=== PATIENT | male | born 1940 | race Caucasian/White ===

== ENCOUNTER 2024-12-22 11:18 | Inpatient (IN) | payer MEDICARE, SELFPAY ==
[2024-12-22] VITALS (13 sets, daily range): BP systolic 91–113; BP diastolic 52–75; BMI 28.2
--- NOTE | 2024-12-22 08:02 | W.PN.CARDCBS ---
Today's Communication / Plan
-
LHC/RHC today
Impression / Plan
-
This is a summary, see scanned H&P
Primary care physician: Jone Lopez MD
Primary driver manager: Don Carter MD
84 year old male with the PMH of HTN, HLD and CAD s/p [place] PCI to proximal LAD and mid RCA 2001 and RCA in stent restenosis dilated with cutting balloon and brachytherapy 2002 in [facility] who presented to the Emergency room for evaluation of
worsening SOB x2� weeks� with intermittent chest tightness. Upon arrival he was 98% on RA with BP 104/61. EKG showed AFlutter (new) with anterolateral STTW changes. CTA chest was negative for PE. BNP 3003 Trp 576, 745, 847, 1037, 1118 with CPK�s
275, 295, 417, 423, 429, MB peaked at 46.1. ASA 324mg was given in the ED and IV Heparin gtt was started. Repeat EKG showed NSR with lateral STTWA. Echo with EF 35-40%, anterolateral and mid inferolateral WMA, moderate-severe MR. He is being
transferred today for [facility].
Impression:
NSTEMI
CAD PCI LAD, RCA 2001 in [facility], 2002 RCA ISR s/p cutting balloon, IC brachytherapy
Atrial flutter, new dx, [id number] =4
Acute on chronic HFrEF 35-40%
HTN
Pre DM diet controlled
PVC's, PAC's
Moderate-severe MR by Echo
Dyslipidemia
chewing tobacco dependence
Plan:
transferred for LHC/RHC, admit IVU post procedure
continue to trend CPK/MB/troponin was still trending
CXR clear despite BNP 3003, He was given one dose of IV lasix, possible RHC to assess for further diuresis
Echo with new WMA and depressed EF with mod-severe MR and Mod AI
Paroxysmal Aflutter - converted to SR in ER, new diagnosis, will resume heparin drip after cath
If PCI may require DAPT with OAC, CHADsVASC score is 4 so should be anticoagulated
Check CVE, continue atorvastatin 40mg
HTN - continue amlodipine and lisinopril
Moderate-severe MR and Mod AI, may require FREDRICK to better evaluate, compared to Echo 06/08 only trace MR, mild AI
continue to monitor closely on tele
Recently moved to [place] so will most likely f/u with ATC
12/21/24 ECHO
1. Mildly to moderately decreased left ventricular systolic function.
2. Left ventricular ejection fraction, by visual estimation, is 35 to 40%.
3. Basal and mid anterolateral wall, basal and mid inferior wall, and basal and mid inferolateral wall are abnormal.
4. Moderately increased left ventricular internal cavity size by (6.36 cm/ 3.50 cm/m2).
5. Indeterminate LV diastolic function.
6. Normal right ventricular size and systolic function.
7. Moderately dilated left atrium by volume index 42.0 mL/m2.
8. Normal right atrium by area 11.2 cm2.
9. Aortic valve is tricuspid and sclerotic. Aortic valve sclerosis of the base of multiple aortic cusps; but no aortic stenosis. No evidence of aortic valve stenosis. Mild to moderate aortic regurgitation.
10. Moderate to severe mitral valve regurgitation is seen. Mitral regurgitation jet is eccentrically directed.
11. Mild to moderate tricuspid regurgitation.
12. Right atrial pressure of (8 mmHg), the estimated right ventricular systolic pressure is mildly elevated at (48.1 mmHg).
13. Inferior vena cava normal in size (>2.1 cm) + greater than 50% variably consistent with elevated right atrial pressures (8 mmHg).
14. The ascending aorta is dilated. Asc Aorta measures (3.66 cm/ BSA indexed 2.0 cm/m2).
15. Compared to a prior TTE study from 06/07/2024 Left ventricle function has decreased, there are more extensive wall motion abnormalities noted (prior study noted only basal inferior akinesis) and mitral regurgitation has increased significantly.
Left ventricle size has also increased and is now dilated.
05/2024 ECHO - LVEF 50-55%, inferobasal AK, global HK, mild MAC, Trace MR, mild TR/AI, borderline dil AA 3.8cm
Progress Note - Legal Officer
Subjective
Date of Service: December 22, 2024
denies cp, sob
Objective
Labs:
Laboratory Last Values
WBC 7.8 10^3/uL (4.5-11.0) 12/21/24 09:15
RBC 4.35 10^6/uL (4.20-5.40) 12/21/24 09:15
Hgb 13.0 gm/dL (13.5-16.5) L 12/21/24 09:15
Hct 40.2 % (40.0-48.0) 12/21/24 09:15
MCV 92 fl (82-98) 12/21/24 09:15
RDW 14.1 % (11.0-15.0) 12/21/24 09:15
Plt Count 290 10^3/uL (150-400) 12/21/24 09:15
Neut % (Auto) 74 % (40-78) 12/21/24 09:15
Lymph % (Auto) 19 % (21-49) L 12/21/24 09:15
[place] % (Auto) 5 % (0-10) 12/21/24 09:15
Eos % (Auto) 1 % (0-4) 12/21/24 09:15
Baso % (Auto) 1 % (0-1) 12/21/24 09:15
Neut # (Auto) 5.7 10^3/uL (2.2-8.0) 12/21/24 09:15
Lymph # (Auto) 1.5 10^3/uL (1.0-4.0) 12/21/24 09:15
[place] # (Auto) 0.4 10^3/uL (0.0-1.0) 12/21/24 09:15
Eos # (Auto) 0.1 10^3/uL (0.0-0.4) 12/21/24 09:15
Baso # (Auto) 0.1 10^3/uL (0.0-0.1) 12/21/24 09:15
PT 13.4 SECONDS (11.5-14.4) 12/21/24 09:15
INR 1.01 INR 12/21/24 09:15
APTT 27 SECONDS (23-37) 12/21/24 09:15
Sodium 144 mmol/L (136-145) 12/21/24 09:15
Potassium 4.3 mmol/L (3.5-5.1) 12/21/24 09:15
Chloride 109 mmol/L (98-107) H 12/21/24 09:15
Carbon Dioxide 24.6 mmol/L (22.0-29.0) 12/21/24 09:15
Anion Gap 10 (7-16) 12/21/24 09:15
BUN 26 mg/dL (8-23) H 12/21/24 09:15
Creatinine 1.20 mg/dL (0.70-1.20) 12/21/24 09:15
GFR Calculation 60 (Over 90) L 12/21/24 09:15
BUN/Creatinine Ratio 21.6 (7.0-25.0) 12/21/24 09:15
Random Glucose 117 mg/dL (50-200) 12/21/24 09:15
Calcium 9.7 mg/dL (8.8-10.2) 12/21/24 09:15
Total Bilirubin 0.4 mg/dL (0.1-1.2) 12/21/24 09:15
AST 49 U/L (0-40) H 12/21/24 09:15
ALT 38 U/L (0-41) 12/21/24 09:15
Alkaline Phosphatase 85 U/L (35-160) 12/21/24 09:15
Total Creatine Kinase 295 U/L (20-200) H 12/21/24 12:26
CK-MB (CK-2) 29.8 ng/mL (0.0-5.0) H 12/21/24 12:26
CK-MB (CK-2) Rel Index 10.1 ng/100IU (0-2.8) H 12/21/24 12:26
Troponin T 5th Gen ng/L 745 ng/L (0-22) H* 12/21/24 12:26
NT-Pro-B Natriuret Pep 3003 pg/mL (0-300) H 12/21/24 09:15
Total Protein 6.3 g/dL (6.5-8.3) L 12/21/24 09:15
Albumin 4.2 g/dL (3.5-5.2) 12/21/24 09:15
Globulin 2.1 g/dL (2.3-3.5) L 12/21/24 09:15
Albumin/Globulin Ratio 2.0 (1.1-1.7) H 12/21/24 09:15
Physical Exam
Physical Exam
NAD< AOX3
S1, S2, RRR, II/ LEXIS at [facility]
CTAB, non labored
SNTND Bsx4
No LE edema
[2024-12-22 09:52] LABS: Total CK 425 U/L (55-170)
[2024-12-22 10:18] LABS: CKMB 26.6 ng/ml (0.0-3.4)
--- NOTE | 2024-12-22 11:11 | ITS.CL.CATH ---
Nurse Discharge - Catheterization
Cardiac Catheterization
Procedure Report:
RIGHT AND LEFT HEART CATHETERIZATION
Date of Procedure: December 22, 2024
Primary Care Physician: Dr. Rio Bridges
Primary Vba Programmer: Dr. Stas Coyne
Procedures performed:
1: Coronary angiography
2: Left ventriculography
3: Right heart catheterization
INDICATION: The patient is an 84-year-old man with a past medical history of coronary artery stenting to the LAD and right coronary artery many years ago who presents with a non-STEMI and 2 weeks of symptoms. Echo shows new LV systolic dysfunction
with at least moderate mitral regurgitation. He is feeling better and asymptomatic.
ACCESS: The patient was prepped and draped in usual sterile fashion. A 6 Frisian sheath was placed in the right radial artery using the Seldinger over the wire technique. A 6 Frisian sheath was then placed in the right common femoral vein using the
same technique.
HEMODYNAMIC FINDINGS (mmHg):
RA(a,v,m): 16, 14, 13
RV(s/d,EDP): 42/12, 15
PA(s/d/m): 42/21, 27
PCWP(a,v,m): 22, 24, 22
LV(s/d,EDP): 90/14, 24
Ao(s/d,m): 90/50, 66
Oxygen Saturations (mg/dl):
PA: 59% on room air
LV: 89% on room air
Cardiac Output/Index (l/min / l/min/m2):
Estimated Frank Method: 4.1/2.3
VALVE HEMODYNAMICS:
No significant aortic or mitral valve stenosis.
ANGIOGRAPHIC FINDINGS:
Single-plane Left Ventriculography in SMITH Projection: Not done.
Coronary Angiography:
Dominance: Right
Left Main: Distal 80 to 90% stenosis.
Left Anterior Descending: The LAD is a medium caliber vessel that gives rise to 1 major high diagonal branch. The previously placed mid LAD stent is widely patent with no significant in-stent restenosis. The distal LAD is widely patent with normal
flow and appears to be a good surgical target. The major diagonal branch also has mild nonobstructive proximal and mid disease with normal distal flow.
Left Circumflex: There is complex distal left main disease which extends into the circumflex ostium with at least 90% stenosis. The circumflex gives rise to 1 major obtuse marginal branch which has TALHA II flow. This vessel appears to be distally
patent and a reasonable surgical target.
Right Coronary: The right coronary artery is a medium to large caliber vessel that has previously overlapping stents in the midportion. There is a hazing filling defect with at least a 90% stenosis in the mid RCA at the proximal stent edge followed
by severe in-stent restenosis in the midportion of the stent with a 70 to 80% stenosis. The distal RCA is widely patent. The posterior descending artery is relatively small.
Fluoroscopy Time (min): 5.2
Radiation Dose (mGy): 335
DAP (Gy.cm2): 29
Closure device: None. A TR band was applied for hemostasis at the right wrist. The femoral vein groin sheath will be pulled with manual pressure for hemostasis.
Complications: None.
ASSESSMENT:
1: Complex three-vessel coronary artery disease including left main disease with a resting flow abnormality into the circumflex as described above.
2: Mildly elevated pulmonary pressures.
3: Low cardiac output and index with reasonably compensated filling pressures.
CONCLUSIONS and RECOMMENDATIONS:
1: CT surgical evaluation for CABG and possible mitral valve intervention.
Amanda Rincon M.D.
Copy to: Dr. Rio Bridges in [facility]
--- NOTE | 2024-12-22 11:30 | PTCARENOTE ---
Received patient from the cardiac cath lab radiology technologist in his bed, with HOB elevated 15 degrees. Right radial band intact, no signs of bleeding or hematoma noted. Right groin dressing is dry and intact. SR on telemetry, monitoring VS, call yo in reach. The patient's
and DIL at the bedside.
--- NOTE | 2024-12-22 11:57 | CONSULT.CT ---
Consultation
-
Date/Time Consultation Requested: 12/22 113
Date/Time Consultation Performed: 12/22 1200
Requesting Provider: Vin BORGES
Performing Provider: Paige Dow MD
Reason for Consultation: CABG eval
Patient History
Physicians
Family Physician: Jone Lopez MD
Outpatient Assembly Mechanic: Don Carter MD
Inpatient Assembly Mechanic: Vin BORGES
History of Present Illness
84 y/o male with pmhx listed below initally presented to [facility] with progessive shortness of breathe for 2 weeks and chest pressure that was initally with actvity but since friday it happened with rest. Upon arrival he was saturating in the high 90s on
room air. His EKG at that time showed atrial flutter w/ EKG changes, which is new to him. Patient was also found to have an elevated BNP and troponins. TTE showed an EF of 35-40% and mod TR and severe MR. Patient was transferred to today for a
LHC which revealed MVD and CT surgery was consulted for surgical evaluation.
12/22/24 C
Coronary Angiography:
Dominance: Right
Left Main: Distal 80 to 90% stenosis.
Left Anterior Descending: The LAD is a medium caliber vessel that gives rise to 1 major high diagonal branch. The previously placed mid LAD stent is widely patent with no significant in-stent restenosis. The distal LAD is widely patent with normal
flow and appears to be a good surgical target. The major diagonal branch also has mild nonobstructive proximal and mid disease with normal distal flow.
Left Circumflex: There is complex distal left main disease which extends into the circumflex ostium with at least 90% stenosis. The circumflex gives rise to 1 major obtuse marginal branch which has TALHA II flow. This vessel appears to be distally
patent and a reasonable surgical target.
Right Coronary: The right coronary artery is a medium to large caliber vessel that has previously overlapping stents in the midportion. There is a hazing filling defect with at least a 90% stenosis in the mid RCA at the proximal stent edge followed
by severe in-stent restenosis in the midportion of the stent with a 70 to 80% stenosis. The distal RCA is widely patent. The posterior descending artery is relatively small.
12/22 RHC
HEMODYNAMIC FINDINGS (mmHg):
RA(a,v,m): 16, 14, 13
RV(s/d,EDP): 42/12, 15
PA(s/d/m): 42/21, 27
PCWP(a,v,m): 22, 24, 22
LV(s/d,EDP): 90/14, 24
Ao(s/d,m): 90/50, 66
Oxygen Saturations (mg/dl):
PA: 59% on room air
LV: 89% on room air
Cardiac Output/Index (l/min / l/min/m2):
Estimated Frank Method: 4.1/2.3
12/21/24 ECHO
1. Mildly to moderately decreased left ventricular systolic function.
2. Left ventricular ejection fraction, by visual estimation, is 35 to 40%.
3. Basal and mid anterolateral wall, basal and mid inferior wall, and basal and mid inferolateral wall are abnormal.
4. Moderately increased left ventricular internal cavity size by (6.36 cm/ 3.50 cm/m2).
5. Indeterminate LV diastolic function.
6. Normal right ventricular size and systolic function.
7. Moderately dilated left atrium by volume index 42.0 mL/m2.
8. Normal right atrium by area 11.2 cm2.
9. Aortic valve is tricuspid and sclerotic. Aortic valve sclerosis of the base of multiple aortic cusps; but no aortic stenosis. No evidence of aortic valve stenosis. Mild to moderate aortic regurgitation.
10. Moderate to severe mitral valve regurgitation is seen. Mitral regurgitation jet is eccentrically directed.
11. Mild to moderate tricuspid regurgitation.
12. Right atrial pressure of (8 mmHg), the estimated right ventricular systolic pressure is mildly elevated at (48.1 mmHg).
13. Inferior vena cava normal in size (>2.1 cm) + greater than 50% variably consistent with elevated right atrial pressures (8 mmHg).
14. The ascending aorta is dilated. Asc Aorta measures (3.66 cm/ BSA indexed 2.0 cm/m2).
15. Compared to a prior TTE study from 06/07/2024 Left ventricle function has decreased, there are more extensive wall motion abnormalities noted (prior study noted only basal inferior akinesis) and mitral regurgitation has increased significantly.
Left ventricle size has also increased and is now dilated.
Past Medical History
Past Medical History: Other
NSTEMI
CAD PCI LAD, RCA 2001 in [facility], 2002 RCA ISR s/p cutting balloon, IC brachytherapy
Atrial flutter, new dx, [id number] =4
Acute on chronic HFrEF 35-40%
HTN
Pre DM diet controlled
PVC's, PAC's
Moderate-severe MR by Echo
Dyslipidemia
chewing tobacco dependence
Past Surgical History
Past Surgical History: PCI/Stent
Dental History
last dental visit 1 year ago
Family History
Mother: N/A
Father: N/A
Family Medical History: CAD
Social History
Alcohol: Occasional
Drug: None
Tobacco: Other (does chewing tobacco/ quit smoking 45 years ago)
Living: With Spouse
Employment: Retired
Allergies
Allergy/AdvReac Type Severity Reaction Status Date / Time
No Known Allergies Allergy Unverified 12/22/24 09:21
Home Medications
�Medication �Instructions �Recorded �Confirmed �Type
amlodipine 5 mg tablet 5 mg PO DAILY 12/22/24 12/22/24 History
aspirin 81 mg capsule 81 mg PO DAILY 12/22/24 12/22/24 History
atorvastatin 40 mg tablet 40 mg PO QPM 12/22/24 12/22/24 History
lisinopril 20 mg tablet 20 mg PO DAILY 12/22/24 12/22/24 History
melatonin 10 mg tablet 10 mg PO HS 12/22/24 12/22/24 History
Review of Systems
-
History Source: Patient
General: Reports No Symptoms
Respiratory: Reports SOB and CAT
Cardiac: Reports Chest Pain
Abdomen/GI: Reports No Symptoms
: Reports No Symptoms
Musculoskeletal: Reports No Symptoms
Skin: Reports No Symptoms
Neurological: Reports No Symptoms
Vascular: Reports No Symptoms
Physical Exam
Vital Signs
Temp 97.7 F 12/22/24 09:48
Temp route: Temporal 12/22/24 09:48
Pulse 66 12/22/24 09:48
Resp Rate 17 12/22/24 09:48
Blood pressure 99/65 12/22/24 09:48
Blood pressure extremity used: Left upper arm 12/22/24 09:48
Position: Lying 12/22/24 09:48
SaO2 95 12/22/24 09:48
Oxygen Mode of Delivery Room air 12/22/24 09:48
Can the patient verbally communicate their pain? Yes 12/22/24 09:48
Labs
Laboratory Last Values
WBC 7.8 10^3/uL (4.5-11.0) 12/21/24 09:15
RBC 4.35 10^6/uL (4.20-5.40) 12/21/24 09:15
Hgb 13.0 gm/dL (13.5-16.5) L 12/21/24 09:15
Hct 40.2 % (40.0-48.0) 12/21/24 09:15
MCV 92 fl (82-98) 12/21/24 09:15
RDW 14.1 % (11.0-15.0) 12/21/24 09:15
Plt Count 290 10^3/uL (150-400) 12/21/24 09:15
Neut % (Auto) 74 % (40-78) 12/21/24 09:15
Lymph % (Auto) 19 % (21-49) L 12/21/24 09:15
[place] % (Auto) 5 % (0-10) 12/21/24 09:15
Eos % (Auto) 1 % (0-4) 12/21/24 09:15
Baso % (Auto) 1 % (0-1) 12/21/24 09:15
Neut # (Auto) 5.7 10^3/uL (2.2-8.0) 12/21/24 09:15
Lymph # (Auto) 1.5 10^3/uL (1.0-4.0) 12/21/24 09:15
[place] # (Auto) 0.4 10^3/uL (0.0-1.0) 12/21/24 09:15
Eos # (Auto) 0.1 10^3/uL (0.0-0.4) 12/21/24 09:15
Baso # (Auto) 0.1 10^3/uL (0.0-0.1) 12/21/24 09:15
PT 13.4 SECONDS (11.5-14.4) 12/21/24 09:15
INR 1.01 INR 12/21/24 09:15
APTT 27 SECONDS (23-37) 12/21/24 09:15
Sodium 144 mmol/L (136-145) 12/21/24 09:15
Potassium 4.3 mmol/L (3.5-5.1) 12/21/24 09:15
Chloride 109 mmol/L (98-107) H 12/21/24 09:15
Carbon Dioxide 24.6 mmol/L (22.0-29.0) 12/21/24 09:15
Anion Gap 10 (7-16) 12/21/24 09:15
BUN 26 mg/dL (8-23) H 12/21/24 09:15
Creatinine 1.20 mg/dL (0.70-1.20) 12/21/24 09:15
GFR Calculation 60 (Over 90) L 12/21/24 09:15
BUN/Creatinine Ratio 21.6 (7.0-25.0) 12/21/24 09:15
Random Glucose 117 mg/dL (50-200) 12/21/24 09:15
Calcium 9.7 mg/dL (8.8-10.2) 12/21/24 09:15
Total Bilirubin 0.4 mg/dL (0.1-1.2) 12/21/24 09:15
AST 49 U/L (0-40) H 12/21/24 09:15
ALT 38 U/L (0-41) 12/21/24 09:15
Alkaline Phosphatase 85 U/L (35-160) 12/21/24 09:15
Total Creatine Kinase 295 U/L (20-200) H 12/21/24 12:26
CK-MB (CK-2) 29.8 ng/mL (0.0-5.0) H 12/21/24 12:26
CK-MB (CK-2) Rel Index 10.1 ng/100IU (0-2.8) H 12/21/24 12:26
Troponin T 5th Gen ng/L 745 ng/L (0-22) H* 12/21/24 12:26
NT-Pro-B Natriuret Pep 3003 pg/mL (0-300) H 12/21/24 09:15
Total Protein 6.3 g/dL (6.5-8.3) L 12/21/24 09:15
Albumin 4.2 g/dL (3.5-5.2) 12/21/24 09:15
Globulin 2.1 g/dL (2.3-3.5) L 12/21/24 09:15
Albumin/Globulin Ratio 2.0 (1.1-1.7) H 12/21/24 09:15
Diagnostic Studies
12/21/24 ECHO
1. Mildly to moderately decreased left ventricular systolic function.
2. Left ventricular ejection fraction, by visual estimation, is 35 to 40%.
3. Basal and mid anterolateral wall, basal and mid inferior wall, and basal and mid inferolateral wall are abnormal.
4. Moderately increased left ventricular internal cavity size by (6.36 cm/ 3.50 cm/m2).
5. Indeterminate LV diastolic function.
6. Normal right ventricular size and systolic function.
7. Moderately dilated left atrium by volume index 42.0 mL/m2.
8. Normal right atrium by area 11.2 cm2.
9. Aortic valve is tricuspid and sclerotic. Aortic valve sclerosis of the base of multiple aortic cusps; but no aortic stenosis. No evidence of aortic valve stenosis. Mild to moderate aortic regurgitation.
10. Moderate to severe mitral valve regurgitation is seen. Mitral regurgitation jet is eccentrically directed.
11. Mild to moderate tricuspid regurgitation.
12. Right atrial pressure of (8 mmHg), the estimated right ventricular systolic pressure is mildly elevated at (48.1 mmHg).
13. Inferior vena cava normal in size (>2.1 cm) + greater than 50% variably consistent with elevated right atrial pressures (8 mmHg).
14. The ascending aorta is dilated. Asc Aorta measures (3.66 cm/ BSA indexed 2.0 cm/m2).
15. Compared to a prior TTE study from 06/07/2024 Left ventricle function has decreased, there are more extensive wall motion abnormalities noted (prior study noted only basal inferior akinesis) and mitral regurgitation has increased significantly.
Left ventricle size has also increased and is now dilated.
05/2024 ECHO - LVEF 50-55%, inferobasal AK, global HK, mild MAC, Trace MR, mild TR/AI, borderline dil AA 3.8cm
Exam
General: Well Developed and Well Nourished
HEENT: Normocephalic
Respiratory: Clear
Cardiac: S1/S2 and Regular Rhythm
GI: Soft and Other (obese)
Rectal: Deferred by Provider
Skin: Warm and Dry
Neuro: AO x 3
Extremities: Pulses (+1)
Lymph: No Lymphadenopathy
Psych: Calm
Assessment / Plan
-
84-year-old male with past medical history listed above presented to [facility] with complaints of shortness of breath for 2 weeks. With workup patient was found to have valvular disease and CAD. CT surgery was consulted for surgical
workup.
#CAD
# Mod- Severe MR
# Mild- Mod TR
-Patient's case will be discussed with attending physician. Further details regarding surgical timing intervention will be determined after attending physicians full evaluation
-Routine preoperative cardiothoracic surgery orders will be initiated.
-STS risk stratification score will be calculated after preoperative testing is complete
- may start DTX or milrinone to augment diureses as tolerated
- trend creatinine/BMP
- Will repeat echocardiogram on friday
[2024-12-22 13:05] LABS: Total CK 339 U/L (55-170)
[2024-12-22 13:24] LABS: CKMB 20.4 ng/ml (0.0-3.4)
--- NOTE | 2024-12-22 13:56 | CM ---
CM following for DC planning needs.
Met w/ patient + mult. family members at bedside (spouse, Blanca, DIL, Radha and son).
Pt. resides w/ spouse, son and DIL in a private, [facility]. Functionally, patient is quite indep. at baseline w/ ADLs, mobility without the use of any assisted device.
Antic. DC plan is for HOME once medically stable.
Will follow.
[2024-12-22 14:13] LABS: Hematocrit 37.7 % (39.0-52.0); Hemoglobin 12.5 g/dL (13.0-18.0); Mean Corp Hgb Conc. 33.2 g/dL (33.0-37.0); Mean Corpuscular Hgb 30.1 pg (27.0-31.0); Mean Corpuscular Volume 90.8 fL (80.0-94.0); Mean Platelet Volume 10.1 fL (7.4-10.4); Platelet Count 264 10^3/uL (130-400); Red Blood Cell Count 4.15 10^6/uL (4.70-6.10); Red Cell Dist. Width 14.4 % (11.5-14.5); White Blood Cell Count 9.1 10^3/uL (4.8-10.8)
[2024-12-22 14:25] LABS: Blood Urea Nitrogen 28 mg/dl (9-20); Calcium 9.3 mg/dl (8.4-10.2); Carbon Dioxide 27 mmol/L (22-30); Chloride 107 mmol/L (98-107); Estimated Creatinine Clearance 43 ml/min; Glucose 132 mg/dl (70-99); Sodium 142 mmol/L (135-145); eGFR > 60.00
[2024-12-22 14:27] LABS: APTT 45.8 Sec (23.4-35.0)
[2024-12-22] MEDS: KCL 40 MEQ PO (15:54)
[2024-12-22] MEDS: LASIX 40 MG IV (15:55)
[2024-12-22] MEDS: HEPARIN 25000 UNITS/250 ML IV (16:03)
--- NOTE | 2024-12-22 16:28 | PTCARENOTE ---
Dressing right wrist and right groin are dry and intact. Patient given IV lasix as ordered, encouraged to use the urinal for accurate I&O. IV heparin started left hand as ordered at 900 units/hr. Patient offers no complaints, call yo in reach.
[2024-12-22] MEDS: LIPITOR 40 MG PO (18:29)
--- NOTE | 2024-12-22 21:17 | PTCARENOTE ---
Pt rec'd at change of shift in recliner chair. Family at bedside. back to bed at present. heparin drip at 900 units/hr. Right radial and right femoral site intact with no active bleeding or hematoma present. Pt reports having 1 bm a week at home. Pt
states he takes Miralax sometimes at home. Spoke with JESUS Boston and Sandra ordered.
[2024-12-22] MEDS: MELATONIN 10 MG PO (22:07)
[2024-12-22] MEDS: COLACE 100 MG PO (22:07)
[2024-12-22 22:52] LABS: APTT 66.2 Sec (23.4-35.0)
[2024-12-22 23:08] LABS: Total CK 321 U/L (55-170)
[2024-12-22 23:39] LABS: CKMB 12.8 ng/ml (0.0-3.4)
[2024-12-23] VITALS (9 sets, daily range): BP systolic 91–114; BP diastolic 49–73; BMI 27.9
[2024-12-23 05:48] LABS: Hematocrit 37.2 % (39.0-52.0); Hemoglobin 12.5 g/dL (13.0-18.0); Mean Corp Hgb Conc. 33.6 g/dL (33.0-37.0); Mean Corpuscular Volume 89.2 fL (80.0-94.0); Platelet Count 251 10^3/uL (130-400); Red Blood Cell Count 4.17 10^6/uL (4.70-6.10); White Blood Cell Count 8.8 10^3/uL (4.8-10.8)
[2024-12-23 05:59] LABS: INR 1.14; PT 15.1 Sec (11.4-14.6)
[2024-12-23 06:10] LABS: ALT (SGPT) 35 U/L (0-50); AST (SGOT) 59 U/L (17-59); Albumin 3.6 g/dl (3.5-5.0); Alkaline Phosphatase 87 U/L (38-126); Blood Urea Nitrogen 32 mg/dl (9-20); Calcium 9.5 mg/dl (8.4-10.2); Carbon Dioxide 28 mmol/L (22-30); Chloride 107 mmol/L (98-107); Direct Bilirubin 0.2 mg/dl (0.0-0.4); Estimated Creatinine Clearance 43 ml/min; Glucose 104 mg/dl (70-99); HDL Cholesterol 48 mg/dl; LDL Cholesterol, Calculated 62 mg/dl; Potassium 4.3 mmol/L (3.5-5.1); Sodium 141 mmol/L (135-145); Total Bilirubin 1.2 mg/dl (0.2-1.3); Total CK 275 U/L (55-170); Total Cholesterol 123 mg/dl (50-199); Total Protein 5.8 g/dl (6.3-8.2); Triglyceride 65 mg/dl (10-149); Very Low Density Lipoprotein 13 mg/dl (0-30); eGFR > 60.00
[2024-12-23 06:31] LABS: CKMB 9.9 ng/ml (0.0-3.4)
--- NOTE | 2024-12-23 08:13 | W.PN.CARDCBS ---
Addendum entered and electronically signed by Len Berry MD 12/23/24 11:48:
I saw and examined the patient.
The Syrup Mixer's note was reviewed and I agree with the note.
Comment:
GEN: No distress, awake, Ox3
HEENT: supple, anicteric, mmm
LUNGS: CTA, no wheezes/rales
CV: Reg, S1/S2, 1/6 syst LSB, no gallop
ABD: soft, BS+, NT/ND
EXT: No edema
NEURO: Gross non-focal
SKIN: No rash
PLan:
He is diuresing and weight is down. Continue IV Lasix.
Will check transthoracic echo today to evaluate mitral and tricuspid valves. May need FREDRICK tomorrow.
Continue Coreg and lisinopril.
For CT surgery evaluation.
Original Note:
Today's Communication / Plan
-
Lasix 40 mg IV daily, weight is down 2 lbs
Recheck TTE today and then possible FREDRICK tomorrow
Start Coreg and stop amlodipine
Cont lisinopril
CT surgery evaluating
Impression / Plan
-
Primary care physician: Dr. Rio Bridges
Primary student counselor: Dr. Stas Coyne, previously followed with Dr. Carter
Impression:
Transferred from [facility] to [facility] with NSTEMI 12/22/24
NSTEMI, Troponin 576 at [facility] 12/21/24
CAD
PCI LAD, RCA in [facility] 2001
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
s/p with distal 80 to 90% stenosis LM, previously placed mid LAD stent widely patent without in-stent restenosis, yet distal LAD widely patent, 90% ostial circumflex stenosis, previously placed overlapping mid RCA stents with 90% stenosis in the
mid RCA at the proximal stent edge followed by severe in-stent restenosis in the midportion of the stent with a 70 to 80% stenosis, distal RCA widely patent 12/22/2024
Newly diagnosed typical atrial flutter
seen on initial ECG at [facility] 12/21/24 and then spontaneously converted to SR 12/22/24
Acute on chronic HFrEF
ICM EF 35-40% by echo 12/21/24
HTN
Prediabetes
PVC's, PAC's
Moderate-severe MR by echo 12/21/24
Mild to mod TR
Dyslipidemia
chewing tobacco dependence
Echo 05/2024: LVEF 50-55%, inferobasal AK, global HK, mild MAC, Trace MR, mild TR/AI, borderline dil AA 3.8cm
Echo 12/21/24: EF 35 to 40%, basal and mid anterolateral wall, basal and mid inferior wall, and basal and mid inferolateral wall are abnormal, normal RV size and function, aortic sclerosis without stenosis, mild to moderate aortic regurgitation,
moderate to severe MR with eccentrically directed jet, mild to moderate TR, RVSP 48.1 mmHg, dilated ascending aorta 3.66 cm
Plan:
-Patient was admitted to [facility] on 12/21/2024 with SOB and CP. ECG with anterolateral ST changes and troponin was 576. Patient had echo that showed newly reduced EF and WMA along with MR and TR. Patient was transferred to [facility] on 12/22/2024
and underwent cardiac cath as outlined above and there is 80 to 90% distal LM, the previously placed mid RCA stents have severe in-stent restenosis. CTS consulted
-Peak troponin at [facility] was 576. Patient is pain-free. Remains on heparin gtt, renewed by me. Hgb stable at 12.5 and Plt 251, labs reviewed by me/07/09.
-LDL 62. Outpatient dose of atorvastatin 40 mg daily ordered
-Cardiac rehab consult postponed while undergoing evaluation for possible CTS
-Aspirin 81 mg daily has been continued
-PCWP 22 and CI 2.3 during [facility]HC 12/22/2024. Weight is down 2 lbs overnight with Lasix 40 mg IV daily. Patient was not taking Lasix prior to admission.
-EF 35 to 40% by echo 12/21/2024.
-Start Coreg 3.125 mg BID now and titrate as BP allows.
-Outpatient dose of lisinopril 20 mg daily has been continued
-Will stop outpatient dose of amlodipine 5 mg daily in favor of Coreg
-Moderate to severe MR with eccentric jet and mild to moderate TR with RVSP 48.1 mmHg by echo 12/21/2024 at [facility]. Repeat TTE 12/23/2024 and consideration for FREDRICK/08/09.
-Patient with atrial flutter on initial ECG at [facility] and then spontaneously converted to SR on 12/22/2024. Telemetry reviewed by me on 12/23/2024 and patient remains in SR
-Heparin gtt as noted above and will eventually need OAC with [id number] of 4
-Talked with patient's daughter, Caridad, who is a geriatric trauma nurse in [place], [place] for 18 minutes 26 seconds on 12/23/2024. We reviewed his hospitalization thus far including the transfer from [facility] and cardiac cath. We talked about the plans for
CT surgery consultation and the possibility of FREDRICK in a.m. Patient's daughter is looking for a heads up of when surgery may be so that she can fly up from [place]. Patient's daughter would also appreciate if patient called her on the phone when CT
surgery is in the room so that she may ask CT surgery specific questions.
HPI: 84 year old male with the PMH of HTN, HLD and CAD s/p MD PCI to proximal LAD and mid RCA 2001 and RCA in stent restenosis dilated with cutting balloon and brachytherapy 2002 in [facility] who presented to the Emergency room for evaluation of
worsening SOB x2� weeks� with intermittent chest tightness. Upon arrival he was 98% on RA with BP 104/61. EKG showed AFlutter (new) with anterolateral STTW changes. CTA chest was negative for PE. BNP 3003 Trp 576, 745, 847, 1037, 1118 with CPK�s
275, 295, 417, 423, 429, MB peaked at 46.1. ASA 324mg was given in the ED and IV Heparin gtt was started. Repeat EKG showed NSR with lateral STTWA. Echo with EF 35-40%, anterolateral and mid inferolateral WMA, moderate-severe MR. He is being
transferred today for [facility].
Progress Note - Manager Special Events
Subjective
Date of Service: December 23, 2024
No chest pain
Objective
Labs:
12/23/24 05:25
12/23/24 05:25
Labs
Hgb 12.5 g/dL (13.0-18.0) L 12/23/24 05:25
Hct 37.2 % (39.0-52.0) L 12/23/24 05:25
Plt Count 251 10^3/uL (130-400) 12/23/24 05:25
PT 15.1 Sec (11.4-14.6) H 12/23/24 05:25
INR 1.14 12/23/24 05:25
APTT 87.0 Sec (23.4-35.0) H 12/23/24 05:25
Sodium 141 mmol/L (135-145) 12/23/24 05:25
Potassium 4.3 mmol/L (3.5-5.1) 12/23/24 05:25
BUN 32 mg/dl (9-20) H 12/23/24 05:25
Creatinine 1.1 mg/dL (0.7-1.3) 12/23/24 05:25
Glucose 104 mg/dl (70-99) H 12/23/24 05:25
Troponins
12/22/24 12/22/24 12/23/24
11:48 22:33 05:25
Troponin I 7.980 H* 7.670 H* 6.690 H*
Vital Signs and I&O:
Vital Signs
Temp Pulse Resp BP Pulse Ox
98.8 F 67 20 100/63 98
12/23/24 06:59 12/23/24 05:12 12/23/24 06:59 12/23/24 05:12 12/23/24 06:59
Vital Signs
Temp Pulse Resp BP Pulse Ox
98.8 F 67 20 100/63 98
12/23/24 06:59 12/23/24 05:12 12/23/24 06:59 12/23/24 05:12 12/23/24 06:59
Intake & Output
12/21/24 12/22/24 12/23/24 12/24/24
06:59 06:59 06:59 06:59
Intake Total 480 / 480
Output Total 1350 / 1350
Balance -870 / -870
Physical Exam
Physical Exam
GEN: NAD. AAO x3
HEENT: EOMI, wearing glasses, MMM
LUNGS: RA. No audible wheeze
CV: Right radial without hematoma or ecchymosis. SR on tele. Reg, S1/S2, 2/6 syst LSB
ABD: ND
EXT: No edema B/L LE
NEURO: Gross non-focal
SKIN: No rash
[2024-12-23] MEDS: COLACE 100 MG PO ×2 (08:20→19:36)
[2024-12-23] MEDS: NORVASC 5 MG PO (08:21)
[2024-12-23] MEDS: ZESTRIL 20 MG PO (08:21)
[2024-12-23] MEDS: ASPIR LOW (ENTERIC COATED) 81 MG PO (08:21)
[2024-12-23] MEDS: MIRALAX 17 GRAMS PO (08:21)
[2024-12-23 09:02] LABS: Glycohemoglobin (HgbA1c) 5.5 % (4.0-5.6)
--- NOTE | 2024-12-23 11:59 | CM ---
CM following for DC planning needs.
Met w/ patient at bedside.
Pt. anticipating CT Surgery, noted that his work up is in progress. He is expecting a clear plan on Friday, 12/24.
Reviewed role of CM and notified that I will meet w/ patient + family with pre-op teaching once surgery date/ plan is identified.
We reviewed prior level of functioning. Pt. moved back[place] to [place] now to [place]. He resides w/ his son + DIL with his spouse. He/spouse are maintained on the 1st level. He is quite indep. w/ ADLs, mobility. Spouse cooks
but he cleans up.
CM will cont. to follow for DC planning needs.
[2024-12-23 12:15] LABS: APTT 61.4 Sec (23.4-35.0)
[2024-12-23] MEDS: COREG 3.125 MG PO (14:10)
[2024-12-23 14:43] LABS: Urine Albumin Negative (Neg - Trace); Urine Bilirubin Negative (Negative); Urine Character Clear (Clear); Urine Color Yellow; Urine Glucose Negative (Negative); Urine Ketone Negative (Negative); Urine Leukocyte Negative (Negative); Urine Nitrite Negative (Negative); Urine Occult Blood Negative (Negative); Urine Urobilinogen 1+ (Neg - 1+)
--- NOTE | 2024-12-23 15:22 | PTCARENOTE ---
Discussed plan of care w/ pt. Encouraged questions. Will monitor.
[2024-12-23] MEDS: HEPARIN 25000 UNITS/250 ML IV (17:14)
[2024-12-23] MEDS: LIPITOR 40 MG PO (17:14)
[2024-12-23 19:43] LABS: APTT 95.3 Sec (23.4-35.0)
[2024-12-23] MEDS: REFRESH EYE DROPS (PF) 2 DROPS OPHTH (21:19)
[2024-12-23] MEDS: COREG PO (22:11)
[2024-12-23] MEDS: MELATONIN 10 MG PO (22:11)
--- NOTE | 2024-12-23 23:29 | PTCARENOTE ---
Pt rec'd at change of shift awake,alert c/o itching/irritated left eye. PA called for Refresh eye drops applied with pt reporting relief after an hour. Npo for FREDRICK in am. Sinus on telemetry.
[2024-12-24] VITALS (11 sets, daily range): BP systolic 80–106; BP diastolic 50–70; BMI 28.2
[2024-12-24 04:00] LABS: Hematocrit 34.8 % (39.0-52.0); Hemoglobin 11.7 g/dL (13.0-18.0); Mean Corp Hgb Conc. 33.6 g/dL (33.0-37.0); Mean Corpuscular Hgb 29.9 pg (27.0-31.0); Mean Platelet Volume 10.6 fL (7.4-10.4); Platelet Count 247 10^3/uL (130-400); Red Blood Cell Count 3.91 10^6/uL (4.70-6.10); Red Cell Dist. Width 13.9 % (11.5-14.5); White Blood Cell Count 8.6 10^3/uL (4.8-10.8)
[2024-12-24 04:15] LABS: APTT 136.6 Sec (23.4-35.0)
[2024-12-24 04:33] LABS: Blood Urea Nitrogen 29 mg/dl (9-20); Calcium 9.1 mg/dl (8.4-10.2); Carbon Dioxide 24 mmol/L (22-30); Chloride 105 mmol/L (98-107); Estimated Creatinine Clearance 48 ml/min; Glucose 89 mg/dl (70-99); Potassium 4.5 mmol/L (3.5-5.1); Sodium 138 mmol/L (135-145); eGFR > 60.00
--- NOTE | 2024-12-24 07:42 | W.PN.CARDCBS ---
Addendum entered and electronically signed by Len Berry MD 12/24/24 09:27:
I saw and examined the patient.
The Cooling Pan Tender's note was reviewed and I agree with the note.
Comment:
GEN: No distress, awake, Ox3
HEENT: supple, anicteric, mmm
LUNGS: CTA, no wheezes/rales
CV: Reg, S1/S2, 1/6 syst LSB, no gallop
ABD: soft, BS+, NT/ND
EXT: No edema
NEURO: Gross non-focal
SKIN: No rash
Plan:
Overall feels well. Plan for CABG next week.
Mitral regurgitation significantly improved by transthoracic echo. Will hold off on FREDRICK.
Blood pressure remains on the low side. Will hold lisinopril. Continue Coreg and continue to try and diurese with Lasix.
Sinew IV heparin and aspirin.
Original Note:
Today's Communication / Plan
-
Continue CT surgery evaluation
MR appeared improved by TTE 12/23. No FREDRICK needed.
Continue attempts at diuresis.
Continue coreg, lisinopril
Continue heparin, aspirin
Impression / Plan
-
Primary care physician: Dr. Rio Bridges
Primary egg smeller: Dr. Stas Coyne, previously followed with Dr. Carter
Impression:
Transferred from [facility] to [facility] with NSTEMI 12/22/24
NSTEMI, Troponin [address] [facility] 12/21/24
CAD
PCI LAD, RCA in [facility] 2001
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
s/p C with distal 80 to 90% stenosis LM, previously placed mid LAD stent widely patent without in-stent restenosis, yet distal LAD widely patent, 90% ostial circumflex stenosis, previously placed overlapping mid RCA stents with 90% stenosis in
the mid RCA at the proximal stent edge followed by severe in-stent restenosis in the midportion of the stent with a 70 to 80% stenosis, distal RCA widely patent 12/22/2024
Newly diagnosed typical atrial flutter
seen on initial ECG at [facility] 12/21/24 and then spontaneously converted to SR 12/22/24
Acute on chronic HFrEF
ICM EF 35-40% by echo 12/21/24
HTN
Prediabetes
PVC's, PAC's
Moderate-severe MR by echo 12/21/24
Mild to mod TR
Dyslipidemia
chewing tobacco dependence
Echo 05/2024: LVEF 50-55%, inferobasal AK, global HK, mild MAC, Trace MR, mild TR/AI, borderline dil AA 3.8cm
Echo 12/21/2024: EF 35 to 40%, basal and mid anterolateral wall, basal and mid inferior wall, and basal and mid inferolateral wall are abnormal, normal RV size and function, aortic sclerosis without stenosis, mild to moderate aortic regurgitation,
moderate to severe MR with eccentrically directed jet, mild to moderate TR, RVSP 48.1 mmHg, dilated ascending aorta 3.66 cm
Echo 12/23/2024: EF 40-45%, inferolateral, anterior, and anterolateral hypokinesis, stage I diastolic dysfunction, mild MR w/ moderate leaflet thickening and calcification, mild AI, mild TR, estimated PAP 33 mmHg
Plan:
-Patient was admitted to [facility] on 12/21/2024 with SOB and CP. ECG with anterolateral ST changes and troponin was 576. Patient had echo that showed newly reduced EF and WMA along with MR and TR. Patient was transferred to [facility] on 12/22/2024
and underwent cardiac cath as outlined above w/ 80 to 90% distal LM stenosis and the previously placed mid RCA stents have severe in-stent restenosis.
-CTS consulted, evaluation ongoing.
-Peak troponin at [facility] was 576. Patient remains pain-free on heparin gtt.
-Continue aspirin 81mg daily
-LDL 62, continue Lipitor 40mg daily
-PCWP 22 and CI 2.3 during RHC 12/22/2024. IV lasix 40mg daily ordered, however has not been able to be given due to hypotension. Weight up 2lbs to 164 lbs 12/24. No SOB or LE edema. Continue attempts at diuresis as BP allows.
-EF 40-45% by echo 12/23/2024.
-Coreg 3.125 mg BID new this admission, continues on lisinopril 20mg daily. Creat 1.0.
-Moderate to severe MR noted by echo 12/21. Improved on follow up echo 12/23, now only mild appearing. FREDRICK no longer needed, procedure canceled. OK to eat.
-Atrial flutter noted on initial ECG at [facility]. Spontaneously converted to SR on 12/22/2024. In SR w/ PACs on tele.
-Continues on heparin gtt for AC, eventually transition to OAC.
HPI: 84 year old male with the PMH of HTN, HLD and CAD s/p OR PCI to proximal LAD and mid RCA 2001 and RCA in stent restenosis dilated with cutting balloon and brachytherapy 2002 in [facility] who presented to the Emergency room for evaluation of
worsening SOB x2� weeks� with intermittent chest tightness. Upon arrival he was 98% on RA with BP 104/61. EKG showed AFlutter (new) with anterolateral STTW changes. CTA chest was negative for PE. BNP 3003 Trp 576, 745, 847, 1037, 1118 with CPK�s
275, 295, 417, 423, 429, MB peaked at 46.1. ASA 324mg was given in the ED and IV Heparin gtt was started. Repeat EKG showed NSR with lateral STTWA. Echo with EF 35-40%, anterolateral and mid inferolateral WMA, moderate-severe MR. He is being
transferred today for [facility].
Progress Note - Glass Cutter Hand
Subjective
Date of Service: December 24, 2024
No complaints. Feeling well.
Objective
Labs:
12/24/24 03:23
12/24/24 03:23
Labs
Hgb 11.7 g/dL (13.0-18.0) L 12/24/24 03:23
Hct 34.8 % (39.0-52.0) L 12/24/24 03:23
Plt Count 247 10^3/uL (130-400) 12/24/24 03:23
PT 15.1 Sec (11.4-14.6) H 12/23/24 05:25
INR 1.14 12/23/24 05:25
APTT 136.6 Sec (23.4-35.0) H 12/24/24 03:23
Sodium 138 mmol/L (135-145) 12/24/24 03:23
Potassium 4.5 mmol/L (3.5-5.1) 12/24/24 03:23
BUN 29 mg/dl (9-20) H 12/24/24 03:23
Creatinine 1.0 mg/dL (0.7-1.3) 12/24/24 03:23
Glucose 89 mg/dl (70-99) 12/24/24 03:23
Troponins
12/22/24 12/22/24 12/23/24
11:48 22:33 05:25
Troponin I 7.980 H* 7.670 H* 6.690 H*
Vital Signs and I&O:
Vital Signs
Temp Pulse Resp BP Pulse Ox
97.9 F 64 20 91/62 95
12/24/24 03:12 12/24/24 03:12 12/24/24 03:12 12/24/24 03:12 12/24/24 03:12
Vital Signs
Temp Pulse Resp BP Pulse Ox
97.9 F 64 20 91/62 95
12/24/24 03:12 12/24/24 03:12 12/24/24 03:12 12/24/24 03:12 12/24/24 03:12
Intake & Output
12/22/24 12/23/24 12/24/24 12/25/24
06:59 06:59 06:59 06:59
Intake Total 480 / 480 550 / 550
Output Total 1350 / 1350 550 / 550
Balance -870 / -870 0 / 0
Physical Exam
Physical Exam
GEN: No distress, awake, alert, oriented x3
HEENT: supple, anicteric, mmm
LUNGS: CTA b/l, no wheezes
CV: Reg, S1/S2, 2/6 syst murmur
EXT: No clubbing, cyanosis, or edema
NEURO: Gross non-focal
SKIN: Warm, dry, no rash
[2024-12-24] MEDS: MIRALAX PO (08:22)
[2024-12-24] MEDS: ASPIR LOW (ENTERIC COATED) 81 MG PO (08:28)
[2024-12-24] MEDS: COLACE 100 MG PO ×2 (08:28→19:45)
[2024-12-24] MEDS: ZESTRIL PO (09:26)
[2024-12-24] MEDS: MIRALAX 17 GRAMS PO (09:27)
[2024-12-24] MEDS: COREG 3.125 MG PO ×2 (09:27→19:45)
--- NOTE | 2024-12-24 09:29 | PTCARENOTE ---
Bp's running low, dr. Berry at bedside, aware of VS and ok to hold lisinopril this morning, give Coreg 3.125 mg, and will re-evaluate lasix administration at a later time.
--- NOTE | 2024-12-24 11:50 | CM ---
CM following for DC planning needs.
CM met w/ patient and spouse. Pt. feels well. He is expecting surgery next week but date unknown.
We reviewed pre and post op routines.
Cardiac Surgery booklet provided.
Reviewed post op MD appts., Cardiac Rehab, visit from CT Transitional Care RN.
Discussed post op restrictions to include lifting, driving, flying and sternal precautions.
Plan is for home w/ CT Transitional Care RN once stable.
Will cont. to follow.
[2024-12-24] MEDS: LASIX IV (12:06)
--- NOTE | 2024-12-24 12:32 | W.PN.UPDATE ---
Update Note
Progress Note Update
STS RISK SCORE
Procedure Type:�Isolated CABG
Perioperative Outcome Estimate %
Operative Mortality 4.75%
Morbidity & Mortality 12.8%
Stroke 1.16%
Renal Failure 2.11%
Reoperation 2.78%
Prolonged Ventilation 8.75%
Deep Sternal Wound Infection 0.182%
Long Hospital Stay (>14 days) 9.49%
Short Hospital Stay (<6 days)* 25.7%
Clinical Summary
Planned Surgery: Isolated CABG, Urgent, First cardiovascular surgery
Demographics: 84 year old, White, male, 74kg, 163cm, BMI: 27.8 kg/m�
Lab Values: Creatinine: 1.1 mg/dL, Hematocrit: 37.2%, WBC Count: 8.8 10�/�L, Platelet Count: 283242 cells/�L
Substance Abuse: Current smoker, Alcohol use: <=1 drink/week
Risk Factors / Comorbidities: Family Hx of CAD
Cardiac Status: Acute and chronic heart failure, NYHA Class II, Ejection Fraction = 43%
Coronary Artery Disease: 3 vessels diseased, Left Main Stenosis >=50%, Non-ST Elevation GA, GA: 1 to 7 Days
Valve Disease: Mild AR, Mild MR, Mild TR
Arrhythmia: Remote Atrial Flutter
Prev. Cardiac Interv: Previous PCI: Not during this episode of care
[2024-12-24 13:33] LABS: APTT 74.2 Sec (23.4-35.0)
--- NOTE | 2024-12-24 16:32 | W.PN.UPDATE ---
Update Note
Progress Note Update
called by nursing to talk to patient's family members. they are upset as they were under the impression that the surgeon would be seeing them today, and he has not yet, as they all came in to meet with the surgeon. discussed with family, as well as
CT surgical HOURLY SHIFT MANAGER independently, that if surgeon cannot meet with patient today, that they arrange a time over the weekend that also works for patient's family to be here for conversation. d/w nursing
[2024-12-24] MEDS: LIPITOR 40 MG PO (17:25)
[2024-12-24] MEDS: REFRESH EYE DROPS (PF) 2 DROPS OPHTH (17:26)
[2024-12-24] MEDS: HEPARIN 25000 UNITS/250 ML IV (17:26)
[2024-12-24 20:13] LABS: APTT 98.8 Sec (23.4-35.0)
[2024-12-24] MEDS: MELATONIN 10 MG PO (22:28)
[2024-12-25] VITALS (24 sets, daily range): BP systolic 65–105; BP diastolic 36–68; BMI 28.1
[2024-12-25 04:05] LABS: Hematocrit 35.2 % (39.0-52.0); Hemoglobin 11.6 g/dL (13.0-18.0); Mean Corpuscular Hgb 29.7 pg (27.0-31.0); Mean Corpuscular Volume 90.3 fL (80.0-94.0); Mean Platelet Volume 9.9 fL (7.4-10.4); Platelet Count 265 10^3/uL (130-400); Red Cell Dist. Width 13.8 % (11.5-14.5); White Blood Cell Count 7.5 10^3/uL (4.8-10.8)
[2024-12-25 04:21] LABS: APTT 94.6 Sec (23.4-35.0)
[2024-12-25 04:28] LABS: Blood Urea Nitrogen 27 mg/dl (9-20); Calcium 8.7 mg/dl (8.4-10.2); Carbon Dioxide 27 mmol/L (22-30); Chloride 105 mmol/L (98-107); Estimated Creatinine Clearance 43 ml/min; Glucose 107 mg/dl (70-99); Magnesium 2.1 mg/dl (1.6-2.3); Potassium 4.7 mmol/L (3.5-5.1); Sodium 139 mmol/L (135-145); eGFR > 60.00
[2024-12-25] MEDS: ASPIR LOW (ENTERIC COATED) 81 MG PO (07:43)
[2024-12-25] MEDS: COLACE 100 MG PO ×2 (07:43→19:50)
[2024-12-25] MEDS: COREG 3.125 MG PO (07:43)
--- NOTE | 2024-12-25 07:43 | W.PN.CARDCBS ---
Addendum entered and electronically signed by Juan Jose Bonilla MD 12/25/24 11:23:
Patient seen, interviewed and examined by me.
Well-appearing, no acute distress
Regular rate and rhythm with normal S1 and S2, no S3 no S4. There is a grade 1/6 apical holosystolic murmur and no rubs. PMI is normally placed.
Lungs are clear to auscultation bilaterally without wheezes rales or rhonchi.
Abdomen soft nontender nondistended with normoactive bowel sounds
Extremities show trace pretibial edema bilaterally no clubbing or cyanosis.
Neurologic exam is grossly nonfocal.
He tells me he has no chest discomfort when he ambulates from the bed to the bathroom. But at rest occasionally he has a discomfort only when he takes a deep breath.
Maintain IV heparin
He is currently on carvedilol 3.125 mg twice daily.
Lisinopril is on hold due to borderline blood pressure.
Concerned we may be over diuresing him. Will hold Lasix, reassess on a daily basis regarding need for diuretic
Newly observed atrial flutter during this presentation (while at [facility]), spontaneously converted to sinus rhythm. Will eventually need DOAC post-op/prior to DC
Awaiting coronary artery bypass grafting surgery sometime next week.
Original Note:
Today's Communication / Plan
-
Awaiting CABG
Continue aspirin, IV heparin, Lipitor, Coreg, lisinopril
Continue IV Lasix as able
Follow rhythm. Needs eventual DOAC
Impression / Plan
-
Primary care physician: Dr. Rio Bridges
Primary sugar drier: Dr. Stas Coyne, previously followed with Dr. Carter
Impression:
Transferred from [facility] to [facility] with NSTEMI 12/22/24
NSTEMI, Troponin 576 at [facility] 12/21/24
CAD
PCI LAD, RCA in [facility] 2001
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
s/p C with distal 80 to 90% stenosis LM, previously placed mid LAD stent widely patent without in-stent restenosis, yet distal LAD widely patent, 90% ostial circumflex stenosis, previously placed overlapping mid RCA stents with 90% stenosis in
the mid RCA at the proximal stent edge followed by severe in-stent restenosis in the midportion of the stent with a 70 to 80% stenosis, distal RCA widely patent 12/22/2024
Newly diagnosed typical atrial flutter
seen on initial ECG at [facility] 12/21/24 and then spontaneously converted to SR 12/22/24
Acute on chronic HFrEF
ICM EF 35-40% by echo 12/21/24
HTN
Prediabetes
PVC's, PAC's
Moderate-severe MR by echo 12/21/24
Mild to mod TR
Dyslipidemia
chewing tobacco dependence
Echo 05/2024: LVEF 50-55%, inferobasal AK, global HK, mild MAC, Trace MR, mild TR/AI, borderline dil AA 3.8cm
Echo 12/21/2024: EF 35 to 40%, basal and mid anterolateral wall, basal and mid inferior wall, and basal and mid inferolateral wall are abnormal, normal RV size and function, aortic sclerosis without stenosis, mild to moderate aortic regurgitation,
moderate to severe MR with eccentrically directed jet, mild to moderate TR, RVSP 48.1 mmHg, dilated ascending aorta 3.66 cm
Echo 12/23/2024: EF 40-45%, inferolateral, anterior, and anterolateral hypokinesis, stage I diastolic dysfunction, mild MR w/ moderate leaflet thickening and calcification, mild AI, mild TR, estimated PAP 33 mmHg
Plan:
-Patient was admitted to [facility] on 12/21/2024 with SOB and CP. ECG with anterolateral ST changes and troponin was 576. Patient had echo that showed newly reduced EF and WMA along with MR and TR. Patient was transferred to [facility] on 12/22/2024
and underwent cardiac cath as outlined above w/ 80 to 90% distal LM stenosis and the previously placed mid RCA stents have severe in-stent restenosis.
-Awaiting CABG
-No issues overnight
- Continue aspirin, IV heparin, Lipitor
- EF 40 to 45% by echo 12/23/2024
- Continue Coreg which is new this admission. Continue lisinopril, however this will need to be held preop as per CT surgery
- IV Lasix has been ordered due to wedge of 22 by cath, however administration has been limited due to hypotension. He is without short of breath and lying flat to sleep in bed without difficulty. Weight appears relatively stable.
- He was initially noted to have moderate to severe MR by echo 12/21/2024, improved to mild by follow-up echo 12/23
- He was noted to be in atrial flutter by initial EKG at [place]. He spontaneously converted to sinus rhythm 12/22. He remains in sinus rhythm with occasional PACs and PVCs and several brief runs of A-fib/A. tach on review of telemetry overnight,
patient asymptomatic
- Postoperatively will need to be started on anticoagulation when okay from surgical standpoint
HPI: 84 year old male with the PMH of HTN, HLD and CAD s/p DC PCI to proximal LAD and mid RCA 2001 and RCA in stent restenosis dilated with cutting balloon and brachytherapy [address] in [facility] who presented to the Emergency room for evaluation of
worsening SOB x2� weeks� with intermittent chest tightness. Upon arrival he was 98% on RA with BP 104/61. EKG showed AFlutter (new) with anterolateral STTW changes. CTA chest was negative for PE. BNP 3003 Trp 576, 745, 847, 1037, 1118 with CPK�s
275, 295, 417, 423, 429, MB peaked at 46.1. ASA 324mg was given in the ED and IV Heparin gtt was started. Repeat EKG showed NSR with lateral STTWA. Echo with EF 35-40%, anterolateral and mid inferolateral WMA, moderate-severe MR. He is being
transferred today for [facility].
Progress Note - Wax Machine Operator
Subjective
Date of Service: December 25, 2024
No issues overnight
Objective
Labs:
04/12/25 03:50
12/25/24 03:50
Labs
Hgb 11.6 g/dL (13.0-18.0) L 12/25/24 03:50
Hct 35.2 % (39.0-52.0) L 12/25/24 03:50
Plt Count 265 10^3/uL (130-400) 12/25/24 03:50
PT 15.1 Sec (11.4-14.6) H 12/23/24 05:25
INR 1.14 12/23/24 05:25
APTT 94.6 Sec (23.4-35.0) H 12/25/24 03:50
Sodium 139 mmol/L (135-145) 12/25/24 03:50
Potassium 4.7 mmol/L (3.5-5.1) 12/25/24 03:50
BUN 27 mg/dl (9-20) H 12/25/24 03:50
Creatinine 1.1 mg/dL (0.7-1.3) 12/25/24 03:50
Glucose 107 mg/dl (70-99) H 12/25/24 03:50
Troponins
12/22/24 12/22/24 12/23/24
11:48 22:33 05:25
Troponin I 7.980 H* 7.670 H* 6.690 H*
Vital Signs and I&O:
Vital Signs
Temp Pulse Resp BP Pulse Ox
97.5 F 63 16 93/58 97
12/25/24 03:40 12/25/24 05:00 12/25/24 03:40 12/25/24 03:44 12/25/24 03:40
Vital Signs
Temp Pulse Resp BP Pulse Ox
97.5 F 63 16 93/58 97
12/25/24 03:40 12/25/24 05:00 12/25/24 03:40 12/25/24 03:44 12/25/24 03:40
Intake & Output
12/22/24 12/23/24 12/24/24 12/25/24
07:59 07:59 07:59 07:59
Intake Total 480 / 480 550 / 550 1020 / 1020
Output Total 1350 / 1350 550 / 550
Balance -870 / -870 0 / 0 1020 / 1020
Physical Exam
Physical Exam
GEN: No distress, awake, alert, oriented x3
HEENT: supple, anicteric, mmm, eomi
LUNGS: CTA B/L, no wheezes
CV: Reg, S1/S2, no murmur
EXT: No clubbing, cyanosis, or edema
NEURO: Gross non-focal
SKIN: Warm, dry, no rash
[2024-12-25] MEDS: LASIX 40 MG IV (07:44)
[2024-12-25] MEDS: MIRALAX 17 GRAMS PO (07:45)
--- NOTE | 2024-12-25 09:29 | W.PN.UPDATE ---
Addendum entered and electronically signed by Zechariah Baca MD 12/25/24 10:29:
Procedure will also include [facility] procedure
Original Note:
Update Note
Progress Note Update
CARDIAC SURGERY ATTENDING:
It was my pleasure to meet with Mr. Basilio Walker and his family at bedside yesterday. I have reviewed his medical history and coronary pathology. He will benefit from surgical coronary revascularization. I am very pleased that his mitral valve
disease and tricuspid valve disease appear to be less significant on his follow-up echo and these will not likely need to be addressed intraoperatively. He will require coronary artery bypass grafting x 3-4 with ALVARO to LAD, greater saphenous vein
to OM, greater saphenous vein to RPDA, and possible greater saphenous vein to diagonal. I will also exclude his left atrial appendage. This was all discussed. The patient is agreeable to proceed. We reviewed the details of the operation, the
periprocedural risks (including, but not limited to, , stroke, TN, arrhythmia, PPM requirement, PNA, ANAM/F, bleeding, and infection), the expected in-hospital postprocedural course, and the expected outpatient recovery. All questions were
answered to the best of my abilities. I have tentatively scheduled him for operation this coming Friday12/29/2024.
Thank you for the opportunity participate in the care of this kind gentleman.
Please call with any questions or concerns.
Zechariah Baca MD
[phone]
[2024-12-25] MEDS: TYLENOL 650 MG PO ×2 (11:54→17:32)
--- NOTE | 2024-12-25 13:03 | PTCARENOTE ---
Patient resting on his side now. Complaint earlier of 4 out 10 chest pain central 'feels like a gas pocket' Did take Miralax and Colace this morning. Tylenol given with some relief, passing flatus which seems to help, now a 2, position on his left
side, resting eyes closed. Using urinal at bedside. Heparin gtt at 1000 units per hour,call yo in reach
--- NOTE | 2024-12-25 17:29 | PTCARENOTE ---
Patient called 8 out 10 epigastric/chest pain worsens with deep inspiration. Repositioned in bed, placed on 2 liters NC POX 99%, BP 99/60. Notifed Corazon Corey orders received
[2024-12-25] MEDS: MYLICON 80 MG PO (17:32)
[2024-12-25] MEDS: LIPITOR 40 MG PO (17:32)
[2024-12-25] MEDS: HEPARIN 25000 UNITS/250 ML IV (17:36)
--- NOTE | 2024-12-25 18:03 | PTCARENOTE ---
Patient pain free at rest. 7 out 10 pain with deep inspirations only. BP 95/58, HR 76, POX 100% on 4 liters NC
[2024-12-25] MEDS: CALCIUM GLUCONATE 100 IV (19:50)
--- NOTE | 2024-12-25 20:34 | PTCARENOTE ---
Addendum entered by Amanda Perez RN 12/26/24 01:44:
BP increased to 94/53. Informed CV PA, Jose Manuel Baker. Additional 250 mL NSS ordered to run @ 125mL/hr. BP 94/59 post fluids.
Original Note:
Received pt @ change of shift. AAOx3. Right radial site and right groin SNORKELLING INSTRUCTOR. No ecchymosis or firmness.
BP low (72/53). Taken again after changing cuff (80/52). Reached out to CV PA (Tony Baker) who recommended reaching out directly to [facility] Physician (Romi Bonilla). Advised CV PA to come assess pt, start 500 IV fluids @ 100 mL/hr and do EKG.
EKG image sent with previous to compare. Troponin ordered. Calcium gluconate ordered and ran-- see MAR.
Pt other vitals stable. Denies dizziness/lightheadedness. CP/epigastric pain still present with deep inspiration. Pt still wearing 4L O2-- stated feeling better than before and able to take a deeper breath. Discussed calling RN with any change in
feeling. Pt verbalized understanding and agreed to call with any changes. Call yo within reach.
[2024-12-25] MEDS: MELATONIN 10 MG PO (21:51)
[2024-12-25] MEDS: NSS 250 IV (21:53)
[2024-12-26] VITALS (15 sets, daily range): BP systolic 79–103; BP diastolic 46–71; BMI 28.3
--- NOTE | 2024-12-26 04:52 | PTCARENOTE ---
Addendum entered by Amanda Perez RN 12/26/24 06:11:
Pt continuing with chest pain. New bolus of 250 IV fluids started and morphine ordered. BP 86/62. See MAR
Original Note:
When woken for AM vitals, Pt c/o chest pain. Worse with deep inspiration 04/24. Verbalized it being the same pain as what brought him into [facility]. Notified CV PA, Tony Baker. He assessed pt. EKG ordered and completed. Labs drawn. VSS taken.
[2024-12-26 05:06] LABS: Hematocrit 35.3 % (39.0-52.0); Hemoglobin 11.5 g/dL (13.0-18.0); Mean Corp Hgb Conc. 32.6 g/dL (33.0-37.0); Mean Corpuscular Hgb 29.3 pg (27.0-31.0); Mean Corpuscular Volume 89.8 fL (80.0-94.0); Mean Platelet Volume 10.3 fL (7.4-10.4); Platelet Count 280 10^3/uL (130-400); Red Blood Cell Count 3.93 10^6/uL (4.70-6.10); Red Cell Dist. Width 13.8 % (11.5-14.5); White Blood Cell Count 12.6 10^3/uL (4.8-10.8)
[2024-12-26 05:18] LABS: APTT 86.4 Sec (23.4-35.0)
[2024-12-26 05:30] LABS: Blood Urea Nitrogen 31 mg/dl (9-20); Calcium 9.7 mg/dl (8.4-10.2); Carbon Dioxide 27 mmol/L (22-30); Chloride 102 mmol/L (98-107); Estimated Creatinine Clearance 37 ml/min; Glucose 136 mg/dl (70-99); Magnesium 2.1 mg/dl (1.6-2.3); Potassium 5.1 mmol/L (3.5-5.1); Sodium 137 mmol/L (135-145); eGFR 54.85
--- NOTE | 2024-12-26 06:12 | W.PN.CT ---
Addendum entered and electronically signed by Zechariah Baca MD 12/26/24 09:34:
I saw and examined the patient.
The PA's note was reviewed and I agree with the note.
Comment:
Mr. Andrade had a very brief episode of chest pain yesterday a.m. that had resolved spontaneously. He then unfortunately developed recurrent chest pains this morning that have not resolved. His systolic blood pressure is slightly low in the 80s to
90s which precludes use of nitroglycerin. His troponins were reassessed and have down trended from a peak of 6.6902 to currently 2.940. Given his chest pain in the setting of his multivessel CAD, I believe it is prudent to proceed to operative
intervention today. I discussed this with the patient who is agreeable. I have informed the patient's who is also agreeable. The OR team is being mobilized currently.
Zechariah Baca
[phone]
Original Note:
Today's Communication / Plan
-
Plan:
-Cont. current medical management per primary team
-Noted to be hypotensive yesterday evening, received IV fluids, and calcium repletion. Coreg held, may consider eventually switching to Toprol XL
-Did have 7/10 substernal CP this AM around 5 AM, which improved after 1mg of morphine to 3/10. His SBP of 86 did not allow for NTG
-Cont. current meds (ASA, Heparin gtt, Lipitor, BB if BP permits)
-Avoid SAVANNAH-I/ARBs/CCB at least 48hrs prior to CABG
-Will stop heparin gtt supervisor contact lens to OR
-Ongoing preop workup
-For CABG/ELAA by Dr. Baca tentatively Friday12/29/24
-Will cont. closely monitor
Assessment / Plan
-
Assessment:
84 y/o man transfer from [facility]
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
-Hx PCI S/P mid LAD and mid RCA stents, [address] [facility]
-NSTEMI (peak trop 7.98)
-[place]
-CAT
-ICM
-Acute on chronic systolic CHF
-LVEF 40-45% per TTE 12/23
-Mild MR/AI/TR, per TTE 12/23
-New/y diagnosed a-fib/flutter @ [facility] 12/21, Spontaneous conversion to NSR on 12/22
-Hx PAC's/PVC's
-HTN
-HLD
-Current tobacco use (cigars)
-Anemia
Discussed patient care with: Cardiology, Nursing, Respiratory Therapy, Pharmacy and Care Team
Subjective
-
Date of Service: December 26, 2024
Pt with c/o 03/24 substernal chest pain this morning around 5 AM, states exacerbated when he takes a deep breath
Objective Data
-
Lab Results
12/26/24 04:46
12/26/24 04:46
PT 15.1 Sec (11.4-14.6) H 12/23/24 05:25
INR 1.14 12/23/24 05:25
APTT 86.4 Sec (23.4-35.0) H 12/26/24 04:46
Vital Signs
Vital Signs
Temp Pulse Resp BP Pulse Ox
98.6 F 73 20 86/62 100
12/26/24 04:21 12/26/24 06:10 12/26/24 04:21 12/26/24 06:10 12/26/24 06:10
CT Intake/Output/Weight
12/25/24 12/25/24 12/26/24
06:59 18:59 06:59
Intake Total 420 / 1020
Balance 420 / 1020
SaO2: 100 (4L)
Physical Exam
-
General: Awake, Oriented and AOx3
Cardiovascular: Regular rate & rhythm, No Murmurs, No Rub and No Gallop
Respiratory: Decreased Breath Sounds (at bases, otherwise clear)
Incision: Clean, Dry, Intact and Dressing Intact
Extremities: Other (+trace edema)
Data Reviewed
-
Lab Results: Results Reviewed
Medications: Active Meds Reviewed
Chest X-Ray: Report Reviewed and Image Reviewed
ECG: Report Reviewed and Image Reviewed
[2024-12-26] MEDS: NSS 250 IV ×2 (06:18→23:48)
[2024-12-26] MEDS: MORPHINE SULFATE 1 MG IV (06:30)
--- NOTE | 2024-12-26 07:08 | PTCARENOTE ---
Some relief of chest pain 3-4 no pain scale (tightness lessened with deep inspiration ad feels like he can take a deep breath now) BP 86/60, POX 99-100% on 4 liters NC.
[2024-12-26] MEDS: COLACE 100 MG PO (08:07)
[2024-12-26] MEDS: ASPIR LOW (ENTERIC COATED) 81 MG PO (08:07)
[2024-12-26] MEDS: MIRALAX 17 GRAMS PO (08:07)
--- NOTE | 2024-12-26 08:41 | W.PN.CARDCBS ---
Today's Communication / Plan
-
Atypical chest discomfort over the last 24 hours, possibly pericarditic in nature. Troponin stable ECG stable.
Will check echocardiogram
Modestly hypotensive over the last 24 hours, likely over diuresed.
Stopping Lasix
Will administer IV fluids and reassess
Plan for surgical revascularization as soon as able
Impression / Plan
-
Primary care physician: Dr. Rio Bridges
Primary singe winder: Dr. Stas Coyne, previously followed with Dr. Carter
Impression:
Transferred from [facility] to [facility] with NSTEMI 12/22/24
NSTEMI, Troponin 576 at [facility] 12/21/24
CAD
PCI LAD, RCA in [facility] 2001
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
s/p [facility] with distal 80 to 90% stenosis LM, previously placed mid LAD stent widely patent without in-stent restenosis, yet distal LAD widely patent, 90% ostial circumflex stenosis, previously placed overlapping mid RCA stents with 90% stenosis in
the mid RCA at the proximal stent edge followed by severe in-stent restenosis in the midportion of the stent with a 70 to 80% stenosis, distal RCA widely patent 12/22/2024
Newly diagnosed typical atrial flutter
seen on initial ECG at [facility] 12/21/24 and then spontaneously converted to SR 12/22/24
Acute on chronic HFrEF
ICM EF 35-40% by echo 12/21/24
HTN
Prediabetes
PVC's, PAC's
Moderate-severe MR by echo 12/21/24
Mild to mod TR
Dyslipidemia
chewing tobacco dependence
Echo 05/2024: LVEF 50-55%, inferobasal AK, global HK, mild MAC, Trace MR, mild TR/AI, borderline dil AA 3.8cm
Echo 12/21/2024: EF 35 to 40%, basal and mid anterolateral wall, basal and mid inferior wall, and basal and mid inferolateral wall are abnormal, normal RV size and function, aortic sclerosis without stenosis, mild to moderate aortic regurgitation,
moderate to severe MR with eccentrically directed jet, mild to moderate TR, RVSP 48.1 mmHg, dilated ascending aorta 3.66 cm
Echo 12/23/2024: EF 40-45%, inferolateral, anterior, and anterolateral hypokinesis, stage I diastolic dysfunction, mild MR w/ moderate leaflet thickening and calcification, mild AI, mild TR, estimated PAP 33 mmHg
Plan:
- Patient was admitted to [facility] on 12/21/2024 with SOB and CP. ECG with anterolateral ST changes and troponin was 576. Patient had echo that showed newly reduced EF and WMA along with MR and TR. Patient was transferred to [facility] on 12/22/2024
and underwent cardiac cath as outlined above w/ 80 to 90% distal LM stenosis and the previously placed mid RCA stents have severe in-stent restenosis.
Awaiting CABG/FAROOQ clipping and consideration for mitral valve repair although MR improved on follow-up echo (moderate to severe MR by echo 12/21/2024, improved to mild by follow-up echo 12/23)
Continue aspirin 81 mg daily, IV heparin, Lipitor 40 mg daily
Carvedilol and lisinopril on hold due to hypotension
- Has had chest discomfort which began yesterday morning and described by the patient as occurring when he takes a deep breath then. He describes that this is very different than the chest tightness he had when he presented with non-ST segment
elevation myocardial infarction. He tells me he has not had recurrence of that pain. Additionally over the past 24 to 36 hours he has been modestly hypotensive. He has been getting intravenous Lasix with the last dose being yesterday morning.
Given his hypotension cannot add antianginals at present. Furthermore I am not sure that his chest discomfort is anginal.
Troponins have been declining since 12/22 (8->7.7->7->2.85->2.94) and my review of ECGs over the past 48 hours so the ECGs have had no significant changes (nonspecific ST and T abnormalities most prominently inferior laterally)
Will give additional 500 cc of normal saline over 4 hours
While I do not suspect strongly significant pericardial effusion/tamponade, given the pericarditic component to his pain, will check echocardiogram this morning
This could be an atypical anginal pain although troponin rather flat and ECG unchanged, will continue to trend troponin and ECGs
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
EF 40 to 45% by echo 12/23/2024
He had been receiving IV Lasix but I believe he has been over diuresed (increasing BUN and creatinine as well as reduced BP) we will hold off on Lasix for now and reassess need on a daily basis
Hypotension does not currently allow carvedilol or SAVANNAH inhibitor, there will eventually need to be consideration for guideline directed medical therapy for HFrEF
- He was noted to be in atrial flutter by initial EKG at [place]. He spontaneously converted to sinus rhythm 12/22. He remains in sinus rhythm with occasional PACs and PVCs and several brief runs of A-fib/A. tach on review of telemetry overnight,
patient asymptomatic
Postoperatively will need to be started on anticoagulation when okay from surgical standpoint unless he undergoes successful left atrial appendage clipping with FREDRICK showing clip to be well placed with no leak.
Discussed with patient and with nursing. All of their questions have been answered.
I have spoken to the echocardiogram data technician who will come in this morning for bedside echocardiogram.
Total time spent today was 51 minutes in preparing to see the patient, seeing the patient and coordination of care. This included review of recent laboratory evaluations, cardiac testing, imaging studies, primary care records, specialty
consultations, hospital records, as well as personally interviewing and examining the patient, which included discussion of their tests, review/ordering medications, and communicating with other healthcare professionals and also treatment planning
as well as counseling.
HPI: 84 year old male with the PMH of HTN, HLD and CAD s/p [place] PCI to proximal LAD and mid RCA 2001 and RCA in stent restenosis dilated with cutting balloon and brachytherapy 2002 in [facility] who presented to the Emergency room for evaluation of
worsening SOB x2� weeks� with intermittent chest tightness. Upon arrival he was 98% on RA with BP 104/61. EKG showed AFlutter (new) with anterolateral STTW changes. CTA chest was negative for PE. BNP 3003 Trp 576, 745, 847, 1037, 1118 with CPK�s
275, 295, 417, 423, 429, MB peaked at 46.1. ASA 324mg was given in the ED and IV Heparin gtt was started. Repeat EKG showed NSR with lateral STTWA. Echo with EF 35-40%, anterolateral and mid inferolateral WMA, moderate-severe MR. He is being
transferred today for [facility].
Progress Note - Comic Artist
Subjective
Date of Service: December 26, 2024
Since yesterday morning he has been having intermittent sharp upper mid chest discomfort when he takes a deep breath. He did not have this discomfort when he arose from the bed and ambulated to the bathroom last night. He tells me he can lie flat
in bed without shortness of breath.
Objective
Labs:
12/26/24 04:46
12/26/24 04:46
Labs
Hgb 11.5 g/dL (13.0-18.0) L 12/26/24 04:46
Hct 35.3 % (39.0-52.0) L 12/26/24 04:46
Plt Count 280 10^3/uL (130-400) 12/26/24 04:46
PT 15.1 Sec (11.4-14.6) H 12/23/24 05:25
INR 1.14 12/23/24 05:25
APTT 86.4 Sec (23.4-35.0) H 12/26/24 04:46
Sodium 137 mmol/L (135-145) 12/26/24 04:46
Potassium 5.1 mmol/L (3.5-5.1) 12/26/24 04:46
BUN 31 mg/dl (9-20) H 12/26/24 04:46
Creatinine 1.3 mg/dL (0.7-1.3) 12/26/24 04:46
Glucose 136 mg/dl (70-99) H 12/26/24 04:46
Troponins
12/25/24 12/26/24
20:01 04:46
Troponin I 2.850 H* 2.940 H*
Vital Signs and I&O:
Vital Signs
Temp Pulse Resp BP Pulse Ox
98.2 F 71 20 92/65 100
12/26/24 07:10 12/26/24 08:15 12/26/24 07:10 12/26/24 08:09 12/26/24 08:15
Vital Signs
Temp Pulse Resp BP Pulse Ox
98.2 F 71 20 92/65 100
12/26/24 07:10 12/26/24 08:15 12/26/24 07:10 12/26/24 08:09 12/26/24 08:15
Intake & Output
12/24/24 12/25/24 12/26/24 12/27/24
06:59 06:59 06:59 06:59
Intake Total 550 / 550 1020 / 1020
Output Total 550 / 550
Balance 0 / 0 1020 / 1020
Physical Exam
Physical Exam
Elderly gentleman sitting up in bed no acute distress
Heart is regular with occasional ectopy, normal S1 and S2, there is no S3 there is no S4. There is a grade 2/6 apical holosystolic murmur without rubs. Normal PMI
Lungs clear to auscultation bilaterally without wheezes rales or rhonchi
Abdomen soft nontender nondistended with normoactive bowel sounds
Extremities show trace pretibial edema bilaterally
[2024-12-26] MEDS: NSS 500 IV ×2 (08:52→18:16)
[2024-12-26] MEDS: NITROSTAT (SUBLINGUAL) 0.4 MG SL (09:14)
--- NOTE | 2024-12-26 09:16 | PTCARENOTE ---
1 SL nitro given pain 4 out 10 epigastric 'pressure' BP 90/53
[2024-12-26] MEDS: PROTONIX 40 MG PO (10:20)
[2024-12-26] MEDS: MAGNESIUM OXIDE 500 MG PO (10:20)
--- NOTE | 2024-12-26 10:23 | W.PN.UPDATE ---
Update Note
Progress Note Update
preop BB contraindicated due to hypotension.
--- NOTE | 2024-12-26 10:39 | PTCARENOTE ---
Patient clipped and CHG bath and wipes completed, linens changed. PO medications given as prescribed, held Lopressor. Heparin gtt stopped. Voided in urinal pre-procedure. Patient transported to the OR in bed
[2024-12-26 11:29] LABS: ACT+ - POC 118 Seconds (82-134)
[2024-12-26 13:29] LABS: Urine Albumin 2+ (Neg - Trace); Urine Bilirubin Negative (Negative); Urine Character Clear (Clear); Urine Color Yellow; Urine Glucose Negative (Negative); Urine Ketone Negative (Negative); Urine Leukocyte Negative (Negative); Urine Nitrite Negative (Negative); Urine Occult Blood 1+ (Negative); Urine Specific Gravity 1.025 (<1.030); Urine Urobilinogen 1+ (Neg - 1+)
[2024-12-26 13:52] LABS: Urine Squamous Cell 0-2 /LPF (Few)
[2024-12-26 13:53] LABS: Urine Bacteria Few (Negative)
[2024-12-26 14:05] LABS: ACT+ - POC 628 Seconds (82-134)
[2024-12-26 14:22] LABS: B.E. - POC -0.5 mmol/L; Glucose - POC 144 mg/dl (70-99); HCO3 - POC 22 mmol/L (21-28); Hematocrit - POC 35 % PCV (42-52); Hemodilution- POC Yes; Hemoglobin Calculated - POC 11.8; Ionized Calcium - POC 1.14 mmol/L (1.15-1.33); Lactate - POC 1.08 mmol/L (0.36-0.75); O2 Saturation %Calculated-POC 99.9 % (94-98); PCO2 - POC 30 mmHg (35-48); PO2 - POC 253 mmHg (83-108); Potassium - POC 4.7 mmol/L (3.5-5.1); Sodium - POC 137 mmol/L (136-145); Specimen Type - POC Arterial; pH - POC 7.48 (7.35-7.45)
[2024-12-26 14:35] LABS: ACT+ - POC 627 Seconds (82-134)
[2024-12-26 14:46] LABS: Glucose - POC 200 mg/dl (70-99); HCO3 - POC 22 mmol/L (21-28); Hematocrit - POC 24 % PCV (42-52); Hemodilution- POC Yes; Hemoglobin Calculated - POC 8.3; Lactate - POC 0.82 mmol/L (0.36-0.75); O2 Saturation %Calculated-POC 99.9 % (94-98); PCO2 - POC 43 mmHg (35-48); PO2 - POC 339 mmHg (83-108); POC Comment CPB; Potassium - POC 4.8 mmol/L (3.5-5.1); Sodium - POC 133 mmol/L (136-145); Specimen Type - POC Arterial; pH - POC 7.32 (7.35-7.45)
[2024-12-26 15:20] LABS: Glucose - POC 174 mg/dl (70-99); HCO3 - POC 25 mmol/L (21-28); Hematocrit - POC 25 % PCV (42-52); Hemodilution- POC Yes; Hemoglobin Calculated - POC 8.6; Ionized Calcium - POC 1.04 mmol/L (1.15-1.33); Lactate - POC 1.09 mmol/L (0.36-0.75); PCO2 - POC 43 mmHg (35-48); PO2 - POC 442 mmHg (83-108); POC Comment CPB; Sodium - POC 136 mmol/L (136-145); Specimen Type - POC Arterial; pH - POC 7.38 (7.35-7.45)
[2024-12-26 15:26] LABS: ACT+ - POC 507 Seconds (82-134)
[2024-12-26 15:44] LABS: ACT+ - POC 546 Seconds (82-134)
[2024-12-26 15:59] LABS: B.E. - POC -1.4 mmol/L; Glucose - POC 160 mg/dl (70-99); HCO3 - POC 24 mmol/L (21-28); Hematocrit - POC 27 % PCV (42-52); Hemodilution- POC Yes; Hemoglobin Calculated - POC 9.1; Lactate - POC 1.87 mmol/L (0.36-0.75); O2 Saturation %Calculated-POC 99.9 % (94-98); PCO2 - POC 39 mmHg (35-48); PO2 - POC 286 mmHg (83-108); POC Comment CPB; Potassium - POC 4.6 mmol/L (3.5-5.1); Sodium - POC 137 mmol/L (136-145); Specimen Type - POC Arterial; pH - POC 7.39 (7.35-7.45)
[2024-12-26 16:08] LABS: ACT+ - POC 539 Seconds (82-134)
[2024-12-26 16:22] LABS: B.E. - POC -0.8 mmol/L; Glucose - POC 154 mg/dl (70-99); HCO3 - POC 25 mmol/L (21-28); Hematocrit - POC 27 % PCV (42-52); Hemodilution- POC Yes; Hemoglobin Calculated - POC 9.3; Ionized Calcium - POC 1.12 mmol/L (1.15-1.33); Lactate - POC 2.18 mmol/L (0.36-0.75); O2 Saturation %Calculated-POC 99.8 % (94-98); PCO2 - POC 45 mmHg (35-48); PO2 - POC 223 mmHg (83-108); POC Comment WARM; Potassium - POC 4.5 mmol/L (3.5-5.1); Sodium - POC 137 mmol/L (136-145); Specimen Type - POC Arterial; pH - POC 7.35 (7.35-7.45)
[2024-12-26] MEDS: ANCEF 10 IV ×2 (16:22→18:08)
[2024-12-26 16:28] LABS: ACT+ - POC 126 Seconds (82-134)
[2024-12-26 16:48] LABS: Glucose - POC 132 mg/dl (70-99); HCO3 - POC 22 mmol/L (21-28); Hematocrit - POC 25 % PCV (42-52); Hemodilution- POC Yes; Hemoglobin Calculated - POC 8.5; Ionized Calcium - POC 1.33 mmol/L (1.15-1.33); Lactate - POC 2.01 mmol/L (0.36-0.75); PCO2 - POC 33 mmHg (35-48); PO2 - POC 394 mmHg (83-108); POC Comment POST; Potassium - POC 4.2 mmol/L (3.5-5.1); Sodium - POC 139 mmol/L (136-145); Specimen Type - POC Arterial; pH - POC 7.43 (7.35-7.45)
--- NOTE | 2024-12-26 17:04 | W.IMMPOSTOP ---
Addendum entered and electronically signed by Zechariah Baca MD 12/26/24 18:02:
[id number]
Original Note:
Surgical Immed Post Op Note
-
CARDIAC SURGERY OPERATIVE NOTE:
Preoperative Dx:
Multivessel CAD including LM disease
NSTEMI
Active angina despite medical therapy
Minor hypotension w/ SBPs in 80s-90s
Postoperative Dx:
Same
Procedures:
1) ACLS - no CPR, synchronized cardioversion x 1 @ 200J for AF to monomorphic VT following induction
2) Attempted IABP placement via L DOUBLE HEAD MACHINE OPERATOR - unsuccessful - manual pressure held
3) Successful placement of IABP via R DOUBLE HEAD MACHINE OPERATOR w/ institution of support w/ good augmentation
4) Median sternotomy
5) Takedown of ALVARO (narrow pedicle)
6) Endoscopic harvest/prep of RLE GSV
7) [facility] procedure
8) CABG x 4 (ALVARO to LAD, GSV to D1, GSV to OM, GSV to distal RCA)
9) ELAA (50mm Atriclip)
10) Drainage of B/L pleural effusions
Surgeon:
Zechariah Baca M.D.
Shoe Salesman:
Veronica Meraz P.A.-C.; endoscopic harvest of RLE GSV, cutter first throughout
Anesthesia:
Rodney Welsh M.D. and Clive Lyman, CChristoR.N.A.
Perfusion:
Florencio Farias C.C.P.; XC: 70min, CPB: 114min
Findings:
Pt. w/ rapid AF that degraded into monomorphic VT post induction of GA - successful cardioversion w/ 200J w/ oriental orthodox of sinus
L DOUBLE HEAD MACHINE OPERATOR was accessed w/ the Seldinger technique. The anterior wall of this artery was quite calcified preventing even small dilators from passing easily into the DOUBLE HEAD MACHINE OPERATOR - access site abandoned
R DOUBLE HEAD MACHINE OPERATOR was also a calcified vessel, serial dilation was able to be accomplished w/ 8Fr IABP sheath placed. IABP advanced w/o issue and position in descending thoracic aorta w/ FREDRICK guidance
ALVARO was a healthy conduit w/ slightly thin infante; ELD 2.25mm; very brisk flow
GSV was healthy conduit w/ normal infante; ELD 3.5mm\\
There was a moderate amount of purulent appearing, non-malodorous pericardial fluid - cultured and drained. Pericardium grossly normal in appearance
[facility] procedure performed w/o incident (B/L pulmonary vein isolation and posterior box lesion on LA)
LAD was visible on the epicardial surface, anastomosis performed at junction between [id number] third of vessel. Normal infante at this location w/ ELD 3.25mm
D1 was visible on the epicardial surface, normal infante at midpoint anastomosis, ELD 2.5mm
OM was visible on the epicardial surface, normal infante at midpoint anastomosis, ELD 3.0mm
RCA was visible on the epicardial surface, very calcified infante throughout, anastomosis performed just distal to crux @ transition into RPDA; ELD 3.5mm (minor calcification on R lateral wall of anastomosis near heel)
FAROOQ was large and had chicken-wing morphology - successfully occluded at its base
Excellent flow in all bypass on intraoperative transit-time U/S flow probe assessment
Post-FREDRICK: LVEF 30-35%, slightly improved subjective contractility, moderate MR, moderate TR, [id number] AI, B/L pleural effusions no longer present, FAROOQ confirmed excluded, IABP properly positioned
Implants:
AtriClip 50mm clip - LOT [id number]
Bipolar epicardial V-wire x 1
CT x 4 (B/L pleural, inferior mediastinal, superior mediastinal)
Sternal wires x 9
Transfusions:
None
Complications:
No complications w/ exception of VT note above.
Condition:
78 sinus (0.0/-0.3). HD stable on dobutamine w/ IABP 1:1
GTTS: levophed 2, dobutamine 3, precedex 0.5, insulin 1
Stable/guarded to CVICU
--- NOTE | 2024-12-26 17:14 | W.PN.UPDATE ---
Update Note
Progress Note Update
IV fluids: 1000
Crystalloid: 1000
U.O.: 350
UF: 1200
Blood: None
Wires: V
Inotropes: Dobutamine
Pressors: levophed
Sedatives: precedex
MCS: IABP @1:1 VIA Right fem artery placed d/t VT arrest on induction of anesthesia (defib with 200j x1)
NEURO: sedated on XXX, pupils +1mm B/L
RESP: #8OT @24cm> 14/500/40/5 Lungs clear B/L. 2 mediastinal (20cc on arrival) and R/L pleural (0cc on arrival) chest tubes to -20cm suction. Sanguineous drainage
CV: RRR +S1, S2, no S3, no rub, no murmur. Dermabond to median sternotomy. RIJ w/[place] locked @ 48cm. PA /13; CVP 6; C.O 2.5/CI 1.6
ABD: round, soft, no BS
EXT: no edema, +2/4 DP pulses B/L, no femoral bruit, right LE SAVANNAH wrap intact; left radial A-line intact
: Funez with clear yellow urine
A/P: POD #0 s/p CABG x4
FREDRICK: EF 30%
- wean and extubate
- Monitor CT and urine output
- Follow up labs and CXR
- Wean levophed for maps >65/SBP goal 90-110
- Will start ASA tonight
- Maintain IABP @1:1; augmentation 80s currently; if HD stable overnight will wean to 1:2 in the AM
>>monitor Left groin
>>stat CXR to check IABP placement
- f/u OR cultures; noted to have purulent pericardial fluid
- EKG pending and will send to cards
- Cards consulted
# acute surgical blood loss anemia-expected
- trend CBC
# Hyperlipidemia
- resume statin when tolerating PO
[2024-12-26 17:42] LABS: Glucose - Point of Care 128 mg/dl (70-99)
--- NOTE | 2024-12-26 18:00 | PTCARENOTE ---
received patient from CVOR post op sedated and intubated. placed on vent by CLOTH BLEACHING RANGE OPERATOR CHIEF. Out with usual lines, V wires connected but box off. CTx4 to -20 wall suction. no air leaks/crepitus draining red. labs drawn and sent. EKG and CXR done bedside. Family
updated. NSR on monitor. HR 70s. IABP in place R femoral. 1:1. Significantly lower sys pressures. reported to PA and Dr Baca. Aware and okay with MAPs correlating in 60s-70s. Funez draining clear yellow urine. Pulses palpable. no edema. All
surgical sites c/d/i. Out on levo @ 2mcg, precedex, insulin per glycemic protocol and dobut at [address] Baca aware. Will continue to monitor.
[2024-12-26 18:01] LABS: B.E. -2.6 mmol/L; HCO3 21.1 mmol/L (21-28); Ionized Calcium 1.29 mMOL/L (1.15-1.33); O2 Saturation % 99.1 % (94-98); PCO2 31 mmHg (35-48); PO2 131 mmHg (83-108); Potassium 3.8 mMOL/L (3.5-5.1); Sodium 134 mMOL/L (136-145); pH 7.44 (7.35-7.45)
[2024-12-26 18:05] LABS: Hematocrit 27.1 % (39.0-52.0); Hemoglobin 9.3 g/dL (13.0-18.0); Platelet Count 157 10^3/uL (130-400)
[2024-12-26 18:06] LABS: Mixed Venous O2 Saturation 62.3 %
[2024-12-26] MEDS: BACTROBAN 2% OINTMENT 1 APPLIC NASAL ×2 (18:08→20:59)
[2024-12-26] MEDS: NEURONTIN PO ×2 (18:09→22:08)
[2024-12-26] MEDS: TYLENOL PO ×2 (18:10→22:08)
[2024-12-26] MEDS: LIPITOR PO (18:10)
[2024-12-26] MEDS: PACERONE PO (18:10)
[2024-12-26] MEDS: KCL 50 IV (18:11)
[2024-12-26 18:15] LABS: Blood Urea Nitrogen 31 mg/dl (9-20); Estimated Creatinine Clearance 43 ml/min; Glucose 134 mg/dl (70-99); Magnesium 3.5 mg/dl (1.6-2.3)
[2024-12-26 18:19] LABS: APTT 39.2 Sec (23.4-35.0); INR 1.74; PT 20.5 Sec (11.4-14.6)
[2024-12-26 18:26] LABS: Glucose - Point of Care 146 mg/dl (70-99)
--- NOTE | 2024-12-26 19:00 | PTCARENOTE ---
bedside report received from previous RN. pt in bed, intubated via ETT, Precedex gtt infusing @ 0.4mcg. NSR on monitor, HR 70s. epicardial wires intact and off. B/L radial and DP pulses palpable. heart tones clear. IABP intact via RFA, set to 1:1,
augmented pressure on IABP reading lower than central monitor. per previous RN, DR. Baca aware. Levo gtt infusing @ 2mcg. Dobut gtt infusing @ 3mg. last CI 1.57. L radial art line intact. RIJ cordis & swan intact w KVOs infusing. CVP ~8. PAPs
30s/10s. core temp 96.2. albert hugger on. vent set to SIMV 14/500/40%/5/5. B/L breath sounds present. POX 100%. CT x4 intact to -20cm wall suction, drainage WNL, no air leak present. hypoactive bowel sounds present. Insulin gtt infusing per glycemic
protocol. hendrix catheter intact, draining CYU, UO adequate. all surgical sites stable. see worklist for full assessment, VS, and interventions.
[2024-12-26] MEDS: SENOKOT-S PO (19:02)
[2024-12-26 20:04] LABS: Glucose - Point of Care 132 mg/dl (70-99)
[2024-12-26] MEDS: SODIUM BICARBONATE 50 MEQ IV (20:59)
[2024-12-26 21:07] LABS: Glucose - Point of Care 107 mg/dl (70-99)
[2024-12-26 21:59] LABS: Glucose - Point of Care 104 mg/dl (70-99)
[2024-12-26] MEDS: ASPIRIN 300 MG RECTAL (22:09)
[2024-12-26] MEDS: ZOFRAN 4 MG IV (22:09)
[2024-12-26 22:12] LABS: Hematocrit 28.2 % (39.0-52.0); Hemoglobin 9.5 g/dL (13.0-18.0); Platelet Count 187 10^3/uL (130-400)
--- NOTE | 2024-12-26 22:20 | PTCARENOTE ---
pt awake and alert, follows commands, CALABRESE. pt placed on Cpap SBT @ 2150. ABG drawn and sent.
[2024-12-26 22:28] LABS: B.E. 1.6 mmol/L; HCO3 26.6 mmol/L (21-28); Ionized Calcium 1.29 mMOL/L (1.15-1.33); O2 Saturation % 99.7 % (94-98); PCO2 43 mmHg (35-48); PO2 114 mmHg (83-108); Potassium 4.6 mMOL/L (3.5-5.1)
--- NOTE | 2024-12-26 22:45 | PTCARENOTE ---
RT at bedside. pt extubated to 6LNC without incident. no wheezing or stridor present. B/L breath sounds present, POX 100%. IS 750. pt oriented x4. pt denies any pain at this time. NSR 80s. Levo gtt 2 2mcg. Dobut gtt @ 3mcg. last CI 1.72. IABP
remains @ 1:1. CT output WNL. UO adequate. Insulin gtt maintained. all surgical sites stable.
[2024-12-26 23:53] LABS: Glucose - Point of Care 96 mg/dl (70-99)
[2024-12-27] VITALS (26 sets, daily range): BP systolic 81–142; BP diastolic 53–117; BMI 29.5
[2024-12-27] MEDS: ANCEF 5 IV ×3 (00:03→16:54)
[2024-12-27 02:04] LABS: Glucose - Point of Care 105 mg/dl (70-99)
[2024-12-27 02:16] LABS: Mixed Venous O2 Saturation 54.4 %
[2024-12-27 02:17] LABS: Hematocrit 26.9 % (39.0-52.0); Hemoglobin 9.1 g/dL (13.0-18.0); Mean Corp Hgb Conc. 33.8 g/dL (33.0-37.0); Mean Corpuscular Hgb 30.2 pg (27.0-31.0); Mean Corpuscular Volume 89.4 fL (80.0-94.0); Mean Platelet Volume 10.4 fL (7.4-10.4); Platelet Count 176 10^3/uL (130-400); Red Blood Cell Count 3.01 10^6/uL (4.70-6.10); Red Cell Dist. Width 13.8 % (11.5-14.5); White Blood Cell Count 15.3 10^3/uL (4.8-10.8)
[2024-12-27 02:34] LABS: Blood Urea Nitrogen 37 mg/dl (9-20); Calcium 8.7 mg/dl (8.4-10.2); Carbon Dioxide 25 mmol/L (22-30); Chloride 108 mmol/L (98-107); Estimated Creatinine Clearance 41 ml/min; Glucose 109 mg/dl (70-99); Magnesium 2.9 mg/dl (1.6-2.3); Sodium 139 mmol/L (135-145); eGFR 54.85
--- NOTE | 2024-12-27 03:00 | PTCARENOTE ---
no acute changes, VSS. NSR 70s-90s. Levo gtt remains @ 2mcg, unable to wean. Dobut gtt remains @ 3mcg. last CI 1.84. POX 98-100% on 2LNC. CT output WNL. UO adequate. Insulin gtt maintained. all surgical sites stable. AM labs drawn and sent. EKG
done. pt resting comfortably w call light in reach.
--- NOTE | 2024-12-27 03:45 | W.PN.CT ---
Today's Communication / Plan
-
Plan:
-No major issues overnight. Hemodynamically and neurologically intact
-Successfully extubated last night @ 2245
-Weaned off Levophed overnight, remains on Dobutamine gtt @ 3, and insulin gtt per protocol
-IABP @ 1:1, will wean as tolerated
-Last CI 1.97, MVO2 54.4, U/O since OR 585 mL
-Monitor chest tube output: 2meds 120/140, R/L pleural 60/65
-Amiodarone and BB on hold while on dobutamine gtt
-Cont. current meds (ASA, Plavix, Lipitor; Amiodarone and BB on hold)
-Maintain swan and a-line while on dobutamine
-Will maintain hendrix while dobutamine for accurate I/O
-Will transfer to tele phase when off insulin gtt and dobutamine
-Maintain cordis
-Encourage use of IS
-Wean off of O2
-Will keep in bed while on IABP
Assessment / Plan
-
Assessment:
-S/P Emergent Median sternotomy/CABG x 4 (ALVARO to LAD, GSV to D1, GSV to OM, GSV to distal RCA)/Endoscopic harvest/prep of RLE GSV/Encompass MAZE procedure/ ELAA (50mm Atriclip)/ Drainage of B/L pleural effusions, by Dr. Baca, 12/26/24, pod#1
-Attempted IABP placement via L COMPUTER SALESPERSON RETAIL - unsuccessful - manual pressure held
-Successful placement of IABP via R COMPUTER SALESPERSON RETAIL w/ institution of support w/ good augmentation
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
-Hx PCI S/P mid LAD and mid RCA stents, 2001 and 2002 in [facility]
-NSTEMI (peak trop 7.98)
-USA
-Preop USA and acute hypotension
-CAT
-ICM
-Acute on chronic systolic CHF
-LVEF 40-45% per TTE 12/23
-Mild MR/AI/TR, per TTE 12/23
-New/y diagnosed a-fib/flutter @ [facility] 12/21, Spontaneous conversion to NSR on 12/22
-Hx PAC's/PVC's
-HTN
-HLD
-Current tobacco use (cigars)
-Anemia
-Intraop ACLS - no CPR, synchronized cardioversion x 1 @ 200J for AF to monomorphic VT following induction
-Acute postop blood loss on Chronic Anemia (stable without blood transfusion)
-Acute postop atelectasis
-Acute postop hypovolemia with subsequent hypervolemia
Discussed patient care with: Cardiology, Nursing, Respiratory Therapy, Pharmacy and Care Team
Subjective
Procedure
S/P Emergent Median sternotomy/CABG x 4 (ALVARO to LAD, GSV to D1, GSV to OM, GSV to distal RCA)/Endoscopic harvest/prep of RLE GSV/Encompass MAZE procedure/ ELAA (50mm Atriclip)/ Drainage of B/L pleural effusions, by Dr. Baca, 12/26/24
-
Date of Service: December 27, 2024
Pt C/O incisional pain, otherwise feels well
Objective Data
-
Lab Results
12/27/24 02:10
12/27/24 02:10
PT 20.5 Sec (11.4-14.6) H 12/26/24 17:37
INR 1.74 12/26/24 17:37
APTT 39.2 Sec (23.4-35.0) H 12/26/24 17:37
Vital Signs
Vital Signs
Temp Pulse Resp BP Pulse Ox
98.2 F 95 16 83/46 98
12/27/24 03:00 12/27/24 03:00 12/27/24 03:00 12/26/24 10:08 12/27/24 03:00
CT Intake/Output/Weight
12/26/24 12/26/24 12/27/24
06:59 18:59 06:59
Intake Total 613.8 / 1338.6 724.8 / 1338.6
Output Total 325 / 855 530 / 855
Balance 288.8 / 483.6 194.8 / 483.6
SaO2: 98 (2L)
Physical Exam
-
General: Awake, Oriented and AOx3
Cardiovascular: Regular rate & rhythm, No Murmurs, No Rub and No Gallop
Respiratory: Decreased Breath Sounds (at bases, otherwise feels well)
Sternum: Stable
Incision: Clean, Dry, Intact and Dressing Intact
Extremities: Other (+trace edema)
Data Reviewed
-
Lab Results: Results Reviewed
Medications: Active Meds Reviewed
Chest X-Ray: Report Reviewed and Image Reviewed
ECG: Report Reviewed and Image Reviewed
[2024-12-27 04:06] LABS: Glucose - Point of Care 90 mg/dl (70-99)
[2024-12-27] MEDS: CALCIUM GLUCONATE 100 IV ×2 (04:12→22:09)
[2024-12-27 06:22] LABS: Glucose - Point of Care 82 mg/dl (70-99)
[2024-12-27] MEDS: TYLENOL 1000 MG PO ×3 (06:27→22:08)
[2024-12-27] MEDS: DILAUDID 0.25 MG IV (06:29)
[2024-12-27 07:04] LABS: Glucose - Point of Care 88 mg/dl (70-99)
--- NOTE | 2024-12-27 07:38 | PTCARENOTE ---
Received pt from restaurant shift leader RN; pt AAOX3 and resting comfortably in bed; NSR on monitor and VSS; Epicardial V wire connect to box and box turned off; Aguila Valera floated to 45, Left A-line and PIV x1 all lines leveled and zeroed; Dobutamine,
Levo and Insulin infusing see flow sheet for detail; IABP 1:1 in right groin, dressing C/D/I, Dr Baca at bedside and IABP changed to 1:2; Lungs diminished; IS to 750; CT x4 to -20 wall suction no air leak and no crepitus noted; hypoactive bowel
sounds; Funez catheter draining yellow urine; trace generalized edema noted; weak lower extremity pulses and positive radial pulses; all surgical sites C/D/I; see nursing documentation for further details.
[2024-12-27 08:06] LABS: Glucose - Point of Care 101 mg/dl (70-99)
--- NOTE | 2024-12-27 08:23 | CON.INTV ---
Consultation
Consultation Request
Date/Time Consultation Requested: 12/26/2024 - 162
Date/Time Consultation Performed: 12/27/2024 - 821
Requesting Provider: ALFREDO Mcdowell
Performing Provider: Dr. Angeles
Reason for Consultation: CABG x4 with IABP placement
Medical History
-
Chief Complaint: SOB + chest pressure
History of Present Illness:
84-year-old male with a past medical history of CAD s/p stents to LAD + RCA complicated by ISR in RCA s/p cutting balloon + brachytherapy, atrial flutter (new diagnosis), HFrEF, hypertension, prediabetes, PVCs, PACs, MR and former tobacco smoker who
now uses chewing tobacco who presents with transfer from [facility] due to progressive shortness of breath x 2 weeks with chest pressure. Patient was admitted to [facility] on 12/21/2024 with initial EKG showing atrial flutter with anterolateral
ST�T wave changes. CTA was reportedly negative for an acute PE. Troponin was elevated at 576. Aspirin given inpatient in the ER with heparin drip started. Repeat EKG showed NSR with lateral ST�T wave changes. Echo showed mitral regurgitation
that was eccentric and possibly severe. He was sent to [facility] for a left heart catheterization which he obtained on 12/22 showing complex three-vessel CAD including the left main disease with mildly elevated pulmonary filling pressures.
Echo obtained here on 12/23 showed mildly reduced LVEF at 40-45%, with normal RV, with mild MR with moderate leaflet thickening and calcification, and mild TR and mildly elevated PASP at [address] surgery was consulted given triple-vessel disease
including left main and he was evaluated for CABG. Risks and benefits of the procedure were discussed with the patient and he agreed to surgical revascularization. On 12/26/2024, he obtained a CABG x 4 with a left atrial appendage exclusion with a
50 mm atrial clip, drainage of bilateral pleural effusions, and and encompass MAZE procedure. Of note after he was induced with GA he developed rapid A-fib that degraded into monomorphic VT requiring cardioversion with 200 J which restored him into
sinus rhythm. Also during the case he had a moderate amount of purulent appearing pericardial fluid that was cultured and drained. He did have an IABP inserted into the right common femoral artery with good augmentation. No post-operative
complications were seen and he was transferred to the CVICU for further care with computer operations technician services consulted for additional management/recommendations.
When I saw the patient today (12/27/2024), he was resting in bed in no acute distress. IABP to be pulled this morning. Currently on dobutamine at 3 mcg/kg/min, Levophed at 2 mcg/min and insulin drip at 0.2 units/hr. Heart rate 98, BP 112/59 via A
line, PAP 41/18, SpO2 99% on 2 L/min nasal cannula, and CO/CI: 3.62/2.28. Bilateral pleural chest tubes + mediastinal chest tubes x [address]. He feels well, has some mild chest pain during deep breaths but otherwise no chest pain at rest and no
shortness of breath.
PMHx: CAD s/p PCI to LAD + RCA (2001) complicated by ISR in RCA s/p dilation with cutting balloon + brachytherapy, atrial flutter (new diagnosis), HFrEF, hypertension, prediabetes mellitus, PVCs, PACs, mitral regurgitation, dyslipidemia, chewing
tobacco dependence
PSHx: PCI/stent
Past Medical History
Past Medical History: Other (Above as per HPI)
Past Surgical History: Other (Above as per HPI)
Social History
Tobacco: Other (Chewing tobacco, otherwise former tobacco smoker, quit 45 years ago)
Alcohol: Occasional
Drug: None
Living: Other (With spouse)
Employment: Retired
Family History
Family History: CAD
Allergies / Home Medications
Allergies
Allergy/AdvReac Type Severity Reaction Status Date / Time
No Known Allergies Allergy Unverified 12/22/24 09:21
Home Medications
�Medication �Instructions �Recorded �Confirmed �Last Taken �Type
amlodipine 5 mg tablet 5 mg PO DAILY Blood Pressure 12/22/24 12/22/24 12/20/24 07:00 History
aspirin 81 mg capsule 81 mg PO DAILY Blood Clot 12/22/24 12/22/24 12/22/24 08:00 History
Prevention/Tx
atorvastatin 40 mg tablet 40 mg PO QPM High Cholesterol 12/22/24 12/22/24 12/20/24 21:30 History
lisinopril 20 mg tablet 20 mg PO DAILY Blood Pressure 12/22/24 12/22/24 12/20/24 07:00 History
melatonin 10 mg tablet 10 mg PO HS Sleep 12/22/24 12/22/24 12/20/24 21:30 History
Review of Systems
-
History Source: Patient
All other systems: Negative unless noted
Vitals / Labs / Diagnostic Testing
Vital Signs
Temp Pulse Resp BP Pulse Ox
98.0 F 98 16 97/53 98
12/27/24 07:00 12/27/24 07:00 12/27/24 06:00 12/27/24 04:56 12/27/24 07:00
Lab Data
12/27/24 02:10
12/27/24 02:10
Laboratory Results
12/26/24 12/26/24
17:37 22:21
PT 20.5 H
INR 1.74
APTT 39.2 H
pH 7.44 7.40
pCO2 31 L 43
pO2 131 H 114 H
HCO3 21.1 26.6
O2 Delivery Level
Microbiology
12/26/24 13:44 Chest - Unspecified Gram Stain - Preliminary
12/26/24 13:44 Heart Fungal Culture - Preliminary
Culture in progress.
Positive cultures are reported as soon as detected.
Final report to follow in four to five weeks.
Diagnostic Testing:
Physical Exam
-
HEENT: Normocephalic and Anicteric
Cardiovascular: S1/S2, Regular Rhythm and Peripheral Edema (negative)
Respiratory: Wheeze (negative), Rales (negative), Rhonchi (negative), Non-Labored Respirations and Other (Bilateral pleural chest tubes + mediastinal chest tubes x 2)
GI: Soft, Non Distended, Non Tender and Normal Bowel Sounds
Neurology: AO x 3 and Tremors (negative)
Skin: Warm and Dry
General: Respiratory Distress (negative), Comfortable, Fever (negative) and Chills (negative)
Assessment
-
Assessment: 84-year-old male with a past medical history of CAD s/p stents to LAD + RCA complicated by ISR in RCA s/p cutting balloon + brachytherapy, atrial flutter (new diagnosis), HFrEF, hypertension, prediabetes, PVCs, PACs, MR and former
tobacco smoker who now uses chewing tobacco who presents with transfer from [facility] due to progressive shortness of breath x 2 weeks with chest pressure. Patient was admitted to [facility] on 12/21/2024 with initial EKG showing atrial flutter
with anterolateral ST�T wave changes. CTA was reportedly negative for an acute PE. Troponin was elevated at 576. Aspirin given inpatient in the ER with heparin drip started. Repeat EKG showed NSR with lateral ST�T wave changes. Echo showed
mitral regurgitation that was eccentric and possibly severe. He was sent to [facility] for a left heart catheterization which he obtained on 12/22 showing complex three-vessel CAD including the left main disease with mildly elevated pulmonary
filling pressures. Echo obtained here on 12/23 showed mildly reduced LVEF at 40-45%, with normal RV, with mild MR with moderate leaflet thickening and calcification, and mild TR and mildly elevated PASP at [address] surgery was consulted given
triple-vessel disease including left main and he was evaluated for CABG. Risks and benefits of the procedure were discussed with the patient and he agreed to surgical revascularization. On 12/26/2024, he obtained a CABG x 4 with a left atrial
appendage exclusion with a 50 mm AtriClip, drainage of bilateral pleural effusions, and an encompass MAZE procedure. Of note after he was induced with GA he developed rapid A-fib that degraded into monomorphic VT requiring cardioversion with 200 J
that restored him into sinus rhythm. Also during the case he had a moderate amount of purulent appearing pericardial fluid that was cultured and drained. He did have an IABP inserted into the right common femoral artery with good augmentation. No
post-operative complications were seen and he was transferred to the CVICU for further care with computer operations technician services consulted for additional management/recommendations.
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
dyslipidemia, chewing tobacco dependence
Impression:
#NSTEMI with MV CAD including left main disease s/p CABG x 4+ left atrial appendage exclusion with 50 mm AtriClip and encompass MAZE procedure; also IABP placement (POD #1)
#Anemia due to above
#Intraoperative rapid A-fib that degraded into monomorphic VT following induction requiring synchronized cardioversion x 1 restoring NSR
#Newly Dx a-flutter/A-fib at [facility] (12/21/2024) with spontaneous conversion to NSR on 12/22
#Acute on chronic HFrEF
#ICM
#Hypertension
#PVCs/PACs
#Tobacco use disorder (chewing tobacco use; former tobacco smoker - quit 45 years ago)
Plan:
Patient was extubated to nasal cannula without incident on 12/26/2024 --> this morning he is on 2 L/min nasal cannula, breathing comfortably and saturating 99%
Wean supplemental O2 to maintain SpO2 >90-94%
prn nebulized bronchodilators - not currently bronchospastic
Encourage incentive spirometer use q1hr while awake
Pulmonary artery catheter parameters will be followed
Pressors/antihypertensive/inotropes/diuretics will be provided as needed
Maintain MAP>65
Replete electrolytes with K>4, Mg>2
IABP to be removed today
Monitor chest tube output (bilateral pleural chest tubes + mediastinal chest tubes x 2)
Monitor hemoglobin
Monitor platelet count and coags
Transfuse blood products as needed to maintain Hb>7g/dL, plt>50k (given post-operative status)
CT surgery managing chest tubes
Monitor blood sugar to maintain euglycemia with goal BG 110-140
Insulin drip per protocol
Per Dr. Baca, there was a moderate amount of purulent appearing non-malodorous pericardial fluid during the case that was drained and cultured. Continue to monitor cultures which show NGTD
Aspiration precautions
DVT prophylaxis
Early nutrition
Early mobilization
Critical care statement: A total of 41 minutes of critical care time was provided for this patient today. This includes management of ventilator, spontaneous breathing trial, arterial blood gases, pressors, of unstable vital signs, evaluation of the
patient at bedside, reviewing the patient's pertinent medical records including radiographs, microbiology, laboratory evaluations, and discussion with primary team and critical care nursing.
[2024-12-27] MEDS: BACTROBAN 2% OINTMENT 1 APPLIC NASAL ×2 (08:33→19:41)
[2024-12-27] MEDS: LOW STRENGTH ASPIRIN 81 MG PO (08:37)
[2024-12-27] MEDS: SENOKOT-S 1 TABLET PO ×2 (08:37→19:41)
[2024-12-27] MEDS: NEURONTIN 100 MG PO ×3 (08:37→22:08)
[2024-12-27] MEDS: PROTONIX 40 MG PO (08:37)
[2024-12-27] MEDS: PLAVIX 75 MG PO (08:37)
[2024-12-27] MEDS: ROXICODONE 5 MG PO (08:43)
[2024-12-27 09:27] LABS: Glucose - Point of Care 110 mg/dl (70-99)
--- NOTE | 2024-12-27 09:40 | PTCARENOTE ---
G Bam AGARWAL PA in room with pt, IABP decreased to 1:3.
[2024-12-27] MEDS: LR 250 ML IV (09:56)
--- NOTE | 2024-12-27 09:57 | PTCARENOTE ---
Husam Gibson CT INVASIVE CARDIOLOGIST and María Kuhn CT PA at bedside; IABP placed on standby, CI 1.94, CO 3.08 and SVR 1506; MAPS 65-70s; UO 20-30 hourly; IABP placed back to 1:2 and LR 250 bolus given; reassess in 1 hour.
[2024-12-27 10:12] LABS: Glucose - Point of Care 109 mg/dl (70-99)
[2024-12-27 11:02] LABS: Glucose - Point of Care 84 mg/dl (70-99)
--- NOTE | 2024-12-27 11:27 | CM ---
Chart reviewed. Patient lying in bed in critical condition. Patient is independent of ADLS, lives with his , son, STEVE in a 2 STH, 1st floor set up, 0 DME. Plan is for the patient to return home with CT Transitional RN. CM to continue to
assess functional needs. CM to follow
--- NOTE | 2024-12-27 11:30 | PTCARENOTE ---
María Kuhn CT PA at bedside; IABP pulled by CT PA 1120; manual pressure held by CTPA. NSR on monitor and VSS; Levo, Dobutamine and Insulin infusing see flow sheet for details.
--- NOTE | 2024-12-27 11:54 | W.PN.ANS.POP ---
Anesthesia Post Operative
- Anesthesia Post Op Note
Vital Signs Stable-See Nursing Note: Yes (remains on levophed and dobutamine - IABP out)
Airway Patent: Yes
Adequate Pain Control: Yes
Change in Mental Status: No
Current Postoperative Nausea & Vomiting: No
Anesthesia Complications: No
General Anesthetic Recall: No
Unplanned Admission: No
Post Op Hydration Adequate: Yes
--- NOTE | 2024-12-27 12:45 | PTCARENOTE ---
Femostop removed and sandbag applied; Right femoral site C/D/I; Doppler pulses present; family at bedside and updated.
[2024-12-27] MEDS: FLEXERIL 5 MG PO (13:03)
[2024-12-27 13:04] LABS: Glucose - Point of Care 121 mg/dl (70-99)
[2024-12-27 15:02] LABS: Glucose - Point of Care 141 mg/dl (70-99)
--- NOTE | 2024-12-27 15:57 | W.PN.CARDCBS ---
Addendum entered and electronically signed by Logan Dempsey DO 12/27/24 16:44:
I saw and examined the patient at 10:30 AM
The Teacher Counselor's note was reviewed and I agree with the note.
Comment:
Plan:
-s/p urgent CABG following chest pain 12/26/24. Patient with Afib in RVR that degenerated to VT during induction 12/26/24 and patient was shocked x1 with yarsani of SR. Extubated and Levophed weaned 12/26/24 PM.
-Patient admitted to [facility] on 12/21/2024 with SOB and CP. ECG with anterolateral ST changes and troponin was 576. Patient had echo that showed newly reduced EF and WMA along with MR and TR. Patient was transferred to on 12/22/2024 and underwent
cardiac cath as outlined above w/ 80 to 90% distal LM stenosis and the previously placed mid RCA stents have severe in-stent restenosis.
Wean Dobutamine as able
IABP at 1:1 and hopeful transition to 1:2
EKG stable with sinus rhythm.
Cont statin, LDL 62.
Cont DAPT with Aspirin 81 mg daily and Plavix 75 mg daily
EF 35 to 40% by echo 12/21/2024.
Postop dose of Toprol-XL and Lisinopril on hold while patient remains on dobutamine
Patient with newly diagnosed paroxysmal A-fib/flutter and will require eventual OAC with [id number] of 4
Discussed with nursing.
Original Note:
Today's Communication / Plan
-
Eventually start GDMT
Impression / Plan
-
Primary care physician: Dr. Rio Bridges
Primary test kitchen home economist: Dr. Stas Coyne, previously followed with Dr. Carter
Impression:
Transferred from [facility] to [facility] with NSTEMI 12/22/24
NSTEMI, Troponin 576 at [facility] 12/21/24
CAD
PCI LAD, RCA in [facility] 2001
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
s/p LHC with distal 80 to 90% stenosis LM, previously placed mid LAD stent widely patent without in-stent restenosis, yet distal LAD widely patent, 90% ostial circumflex stenosis, previously placed overlapping mid RCA stents with 90% stenosis in
the mid RCA at the proximal stent edge followed by severe in-stent restenosis in the midportion of the stent with a 70 to 80% stenosis, distal RCA widely patent 12/22/2024
s/p CABG GARCIA to LAD, vein graft to D1, vein graft to OM, vein graft to distal RCA 12/26/24
Abnormal pericardial fluid 12/26/24
Brief VT with degeneration of Afib during induction with successful shock x1 12/26/24
Newly diagnosed typical atrial flutter
seen on initial ECG at [facility] 12/21/24 and then spontaneously converted to SR 12/22/24
Acute on chronic HFrEF
ICM EF 35-40% by echo 12/21/24
HTN
Prediabetes
PVC's, PAC's
Moderate-severe MR by echo 12/21/24
Mild to mod TR
Dyslipidemia
chewing tobacco dependence
Echo 05/2024: LVEF 50-55%, inferobasal AK, global HK, mild MAC, Trace MR, mild TR/AI, borderline dil AA 3.8cm
Echo 12/21/2024: EF 35 to 40%, basal and mid anterolateral wall, basal and mid inferior wall, and basal and mid inferolateral wall are abnormal, normal RV size and function, aortic sclerosis without stenosis, mild to moderate aortic regurgitation,
moderate to severe MR with eccentrically directed jet, mild to moderate TR, RVSP 48.1 mmHg, dilated ascending aorta 3.66 cm
Echo 12/23/2024: EF 40-45%, inferolateral, anterior, and anterolateral hypokinesis, stage I diastolic dysfunction, mild MR w/ moderate leaflet thickening and calcification, mild AI, mild TR, estimated PAP 33 mmHg
Plan:
-Patient is s/p urgent CABG following chest pain 12/26/24. Patient with Afib in RVR that degenerated to VT during induction 12/26/24 and patient was shocked x1 with yarsani of SR. Extubated and Levophed weaned 12/26/24 PM. Dobutamine running at 2.
IABP running at 1:1
-ECG reviewed by me 12/27/2024 looks like SR with NSST changes
-Patient admitted to [facility] on 12/21/2024 with SOB and CP. ECG with anterolateral ST changes and troponin was 576. Patient had echo that showed newly reduced EF and WMA along with MR and TR. Patient was transferred to [facility] on 12/22/2024 and
underwent cardiac cath as outlined above w/ 80 to 90% distal LM stenosis and the previously placed mid RCA stents have severe in-stent restenosis.
-LDL 62. Outpatient dose of atorvastatin 40 mg daily ordered
-Aspirin 81 mg daily and Plavix 75 mg daily have been continued
-Diuresed prior to CABG. No Lasix ordered currently. Patient was not taking Lasix prior to admission.
-EF 35 to 40% by echo 12/21/2024.
-Postop dose of Toprol-XL is on hold while patient remains on dobutamine
-Outpatient dose of lisinopril 20 mg daily is on hold postop while patient remains on dobutamine
-Outpatient dose of amlodipine 5 mg was stopped in favor of BB
-Patient with newly diagnosed paroxysmal A-fib/flutter and will require eventual OAC with [id number] of 4
HPI: 84 year old male with the PMH of HTN, HLD and CAD s/p [place] PCI to proximal LAD and mid RCA 2001 and RCA in stent restenosis dilated with cutting balloon and brachytherapy 2002 in [facility] who presented to the Emergency room for evaluation of
worsening SOB x2� weeks� with intermittent chest tightness. Upon arrival he was 98% on RA with BP 104/61. EKG showed AFlutter (new) with anterolateral STTW changes. CTA chest was negative for PE. BNP 3003 Trp 576, 745, 847, 1037, 1118 with CPK�s
275, 295, 417, 423, 429, MB peaked at 46.1. ASA 324mg was given in the ED and IV Heparin gtt was started. Repeat EKG showed NSR with lateral STTWA. Echo with EF 35-40%, anterolateral and mid inferolateral WMA, moderate-severe MR. He is being
transferred today for [facility].
Progress Note - [employer]
Subjective
Date of Service: December 27, 2024
No chest pain
Objective
Labs:
12/27/24 02:10
12/27/24 02:10
Labs
Hgb 9.1 g/dL (13.0-18.0) L 12/27/24 02:10
Hct 26.9 % (39.0-52.0) L 12/27/24 02:10
Plt Count 176 10^3/uL (130-400) 12/27/24 02:10
PT 20.5 Sec (11.4-14.6) H 12/26/24 17:37
INR 1.74 12/26/24 17:37
APTT 39.2 Sec (23.4-35.0) H 12/26/24 17:37
Sodium 139 mmol/L (135-145) 12/27/24 02:10
Potassium 5.0 mmol/L (3.5-5.1) 12/27/24 02:10
BUN 37 mg/dl (9-20) H 12/27/24 02:10
Creatinine 1.3 mg/dL (0.7-1.3) 12/27/24 02:10
Glucose 109 mg/dl (70-99) H 12/27/24 02:10
Troponins
12/25/24 12/26/24
20:01 04:46
Troponin I 2.850 H* 2.940 H*
Vital Signs and I&O:
Vital Signs
Temp Pulse Resp BP Pulse Ox
98.5 F 96 18 96/60 100
12/27/24 15:00 12/27/24 15:15 12/27/24 15:00 12/27/24 15:01 12/27/24 15:15
Vital Signs
Temp Pulse Resp BP Pulse Ox
98.5 F 96 18 96/60 100
12/27/24 15:00 12/27/24 15:15 12/27/24 15:00 12/27/24 15:01 12/27/24 15:15
Intake & Output
12/25/24 12/26/24 12/27/24 12/28/24
06:59 06:59 06:59 06:59
Intake Total 1020 / 1020 1501.0 / 1535.5 775.5 / 775.5
Output Total 1000 / 1050 510 / 510
Balance 1020 / 1020 501.0 / 485.5 265.5 / 265.5
Physical Exam
Physical Exam
GEN: NAD. AAO x3
HEENT: EOMI
LUNGS: 2 L NC. No audible wheeze
CV: SR on tele.
NEURO: Gross non-focal
SKIN: No rash
--- NOTE | 2024-12-27 16:05 | PTCARENOTE ---
Assessment unchanged; NSR on montior and VSS; Dobutamine, Levo and Insulin infusing see flow sheet for details; right groin C/D/I; family at bedside and updated.
[2024-12-27] MEDS: LIPITOR 40 MG PO (16:54)
[2024-12-27 17:04] LABS: Glucose - Point of Care 117 mg/dl (70-99)
[2024-12-27] MEDS: ALBUMIN 5% 250 IV (17:34)
[2024-12-27] MEDS: NSS 500 IV (17:37)
[2024-12-27] MEDS: LEVOPHED 250 IV (17:39)
[2024-12-27 17:45] LABS: Glucose - Point of Care 117 mg/dl (70-99)
--- NOTE | 2024-12-27 20:07 | PTCARENOTE ---
Assumed care of pt from dayshift. Walking rounds completed. Pt oriented to person, place, and time. Pt is SR w/ occasional PACs on the tele monitor. HR 90s. Temporary epicardial v-wire intact and connected to box w/ box turned OFF on arrival. BP
90-100s/50s. Levo infusing per protocol. PAPs 40s/20s. CVP ~12. CI 2.13 / CO 3.38. +1 generalized edema throughout. B/L radial pulses present. B/L DP pulses present via Doppler. Pt on 2 L NC. POX 98-100%. Lung sounds diminished in B/L bases.
Mediastinal CTx2 and R/L pleural CT to -20 suction, no airleak noted, and output WNL. Deep breathing and IS encouraged. IS ~1000. Abdomen soft/nontender. Hypoactive BS. Funez catheter intact and draining yellow urine. Sternal Aquacel intact. Right
groin puncture site intact and ORANGE PICKER. Right groin balloon pump site soft and dressing intact (balloon pump dc'd @11AM this morning). Left groin puncture site intact. Right leg SVG site intact and ORANGE PICKER. Right IJ cordis w/ SWAN, left radial a-line
intact, and PIV x1 intact. All lines leveled, zeroed, and flushed. Dobutamine infusing as ordered. See worklist for full nursing assessment and interventions. Call yo within reach.
[2024-12-28] VITALS (32 sets, daily range): BP systolic 74–140; BP diastolic 39–72; PULSE 85; O2SAT 95–96
--- NOTE | 2024-12-28 00:18 | PTCARENOTE ---
Pt reassessed. Remains SR on the tele monitor. HR 80s. BP 100s/50s. Levo infusing as ordered. CI 1.98 / CO: 3.15. PAPs 40s/teens. CVP ~ 11. Pt remains on 2 L NC. POX 98%. CTx4 assessment unchanged. Funez catheter intact and draining yellow urine.
All surgical sites stable. Right groin site soft. No hematoma. SWAN and a-line maintained. All lines leveled, zeroed, and flushed. Dobutamine infusing. Pt denies pain at this time. Call yo within reach.
[2024-12-28 03:32] LABS: Mixed Venous O2 Saturation 49.7 %
[2024-12-28 03:34] LABS: Hematocrit 23.3 % (39.0-52.0); Hemoglobin 7.9 g/dL (13.0-18.0); Mean Corp Hgb Conc. 33.9 g/dL (33.0-37.0); Mean Corpuscular Volume 88.6 fL (80.0-94.0); Mean Platelet Volume 10.5 fL (7.4-10.4); Platelet Count 160 10^3/uL (130-400); Red Blood Cell Count 2.63 10^6/uL (4.70-6.10); Red Cell Dist. Width 13.9 % (11.5-14.5); White Blood Cell Count 12.4 10^3/uL (4.8-10.8)
--- NOTE | 2024-12-28 03:47 | W.PN.CT ---
Today's Communication / Plan
-
Plan:
-No major issues overnight. Hemodynamically and neurologically intact
-Weaned off balloon pump and D/C'd yesterday 12/27. Groin intact without significant hematoma
-BP has been soft postop
-Was on Levophed gtt until 2 AM today, currently only on Dobutamine gtt @ 2
-Last CI 2.18, MVO2 49.7%, U/O since OR 865 mL
-Monitor chest tube output when OOB for possible D/C: 2meds 130/305, R/L pleural 90/245
-Monitor h/h 7.9/23.3, appears to be hemodiluted. Will diurese if BP permits
-Monitor hyponatremia, 133, was 139 yesterday
-Monitor cr 1.5, was 1.3 yesterday, baseline 1.0-1.3
-Monitor K, 5.1
-Mag oxide placed on hold, mg 2.4
-Amiodarone and BB on hold while on dobutamine gtt
-Cont. current meds (ASA, Plavix, Lipitor; Amiodarone and BB on hold)
-Maintain swan and a-line while on dobutamine
-Will maintain hendrix while dobutamine for accurate I/O
-Will transfer to tele phase when off insulin gtt and dobutamine
-Maintain cordis
-Encourage use of IS
-Wean off of O2
-OOB into chair/Ambulate
Assessment / Plan
-
Assessment:
-S/P Emergent Median sternotomy/CABG x 4 (ALVARO to LAD, GSV to D1, GSV to OM, GSV to distal RCA)/Endoscopic harvest/prep of RLE GSV/Encompass MAZE procedure/ ELAA (50mm Atriclip)/ Drainage of B/L pleural effusions, by Dr. Baca, 12/26/24, pod#1
-Attempted IABP placement via L PORTER SAMPLE CASE - unsuccessful - manual pressure held
-Successful placement of IABP via R PORTER SAMPLE CASE w/ institution of support w/ good augmentation
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
-Hx PCI S/P mid LAD and mid RCA stents, 2001 and 2002 in [facility]
-NSTEMI (peak trop 7.98)
-USA
-Preop USA and acute hypotension
-CAT
-ICM
-Acute on chronic systolic CHF
-LVEF 40-45% per TTE 12/23
-Mild MR/AI/TR, per TTE 12/23
-New/y diagnosed a-fib/flutter @ [facility] 12/21, Spontaneous conversion to NSR on 12/22
-Hx PAC's/PVC's
-HTN
-HLD
-Current tobacco use (cigars)
-Anemia
-Intraop ACLS - no CPR, synchronized cardioversion x 1 @ 200J for AF to monomorphic VT following induction
-Acute postop blood loss on Chronic Anemia (stable without blood transfusion)
-Acute postop atelectasis
-Acute postop hypovolemia with subsequent hypervolemia
-Acute postop hyponatremia likely from fluid overload
-Acute postop renal insufficiency/Azotemia
Discussed patient care with: Cardiology, Nursing, Respiratory Therapy, Pharmacy and Care Team
Subjective
Procedure
S/P Emergent Median sternotomy/CABG x 4 (ALVARO to LAD, GSV to D1, GSV to OM, GSV to distal RCA)/Endoscopic harvest/prep of RLE GSV/Encompass MAZE procedure/ ELAA (50mm Atriclip)/ Drainage of B/L pleural effusions, by Dr. Baca, 12/26/24
-
Date of Service: December 28, 2024
Pt c/o mild incisional pain, otherwise feels well
Objective Data
-
Lab Results
12/28/24 03:21
PT 20.5 Sec (11.4-14.6) H 12/26/24 17:37
INR 1.74 12/26/24 17:37
APTT 39.2 Sec (23.4-35.0) H 12/26/24 17:37
Vital Signs
Vital Signs
Temp Pulse Resp BP Pulse Ox
98 F 82 16 94/56 97
12/28/24 03:00 12/28/24 03:15 12/28/24 03:00 12/28/24 03:00 12/28/24 03:15
CT Intake/Output/Weight
12/27/24 12/27/24 12/28/24
06:59 18:59 06:59
Intake Total 887.2 / 1535.5 1224.6 / 1558.7 334.1 / 1558.7
Output Total 675 / 1050 725 / 1265 540 / 1265
Balance 212.2 / 485.5 499.6 / 293.7 -205.9 / 293.7
SaO2: 97 (2L)
Physical Exam
-
General: Awake, Oriented and AOx3
Cardiovascular: Regular rate & rhythm, No Murmurs, No Rub and No Gallop
Respiratory: Decreased Breath Sounds (at bases, otherwise clear)
Sternum: Stable
Incision: Clean, Dry, Intact and Dressing Intact
Extremities: Other (+trace edema)
Data Reviewed
-
Lab Results: Results Reviewed
Medications: Active Meds Reviewed
Chest X-Ray: Report Reviewed and Image Reviewed
ECG: Report Reviewed and Image Reviewed
[2024-12-28 04:00] LABS: Blood Urea Nitrogen 52 mg/dl (9-20); Carbon Dioxide 22 mmol/L (22-30); Chloride 103 mmol/L (98-107); Estimated Creatinine Clearance 36 ml/min; Glucose 127 mg/dl (70-99); Magnesium 2.5 mg/dl (1.6-2.3); Potassium 5.1 mmol/L (3.5-5.1); Sodium 133 mmol/L (135-145); eGFR 46.19
[2024-12-28] MEDS: DOBUTREX 500 MG 250 IV ×2 (04:19→15:34)
--- NOTE | 2024-12-28 04:38 | PTCARENOTE ---
Pt reassessed. Pt is SR on the tele monitor. HR 80s. BP 90-100s/50s. PAPs 40s/teens. CVP~10. Last CI: 2.12. Pt on 2 L NC. POX 99%. CTx4 assessment unchanged. Funez catheter intact and draining yellow urine. SWAN and A-line intact - all lines
leveled, zeroed, and flushed. All surgical sites stable. Labs drawn and sent. Pt denies pain at this time. Dobutamine infusing as ordered. Call yo within reach.
[2024-12-28] MEDS: TYLENOL 1000 MG PO ×3 (06:15→21:11)
[2024-12-28] MEDS: LOW STRENGTH ASPIRIN 81 MG PO (07:59)
[2024-12-28] MEDS: SENOKOT-S 1 TABLET PO (07:59)
[2024-12-28] MEDS: PLAVIX 75 MG PO (07:59)
[2024-12-28] MEDS: NEURONTIN 100 MG PO ×3 (07:59→21:11)
[2024-12-28] MEDS: PROTONIX 40 MG PO (08:00)
[2024-12-28] MEDS: BACTROBAN 2% OINTMENT 1 APPLIC NASAL ×2 (08:00→20:47)
--- NOTE | 2024-12-28 08:00 | PTCARENOTE ---
Received handoff report from sidney DEL VALLE. patient in bed at this time. Aox4, NSr on monitor, 70s-80s, 2L NC satting high 90s. Sternal incision covered with aquacel bandage, CDI, L groin site covered and soft, dressing CDI. R groin puncture TECHNICAL AGRONOMIST and
R knee LIZZIE. trace edema present. + radial pulses, doppler DP pulses. R/L pleural and Mediastinal chest tubes -20 wall suction present with serosanguenous drainage, no airleak or crepitus at this time. Funez draining clear yellow urine, I/Os charted.
L ART line presnt, waveform appropriate. R IJ cordis and swan floated to [address], waveform appropriate. Dobutamine titrated per CI at 0700, recheck 1 hour later CI <2, provider made aware, no new orders at this time, instructed to recheck in 1
hour. All needs met at this time, call yo within reach.
[2024-12-28] MEDS: LASIX 40 MG IV (08:11)
--- NOTE | 2024-12-28 08:28 | W.PN.INTV ---
Today's Communication / Plan
Recommendations
Dobutamine gtt on this AM --> to be weaned off later this AM
Up OOB as tolerated
Pain control
Goal BG 110-140
Removal of PAC as per CT surgery team
Encourage IS use q1hr while awake
Medical Receptionist services will continue to follow along while pt remains in ICU. Once downgraded to CVICU-tele, then we will sign off at that time. Please call back with any questions or concerns.
Assessment
-
Assessment: 84-year-old male with a past medical history of CAD s/p stents to LAD + RCA complicated by ISR in RCA s/p cutting balloon + brachytherapy, atrial flutter (new diagnosis), HFrEF, hypertension, prediabetes, PVCs, PACs, MR and former
tobacco smoker who now uses chewing tobacco who presents with transfer from [facility] due to progressive shortness of breath x 2 weeks with chest pressure. Patient was admitted to [facility] on 12/21/2024 with initial EKG showing atrial flutter
with anterolateral ST�T wave changes. CTA was reportedly negative for an acute PE. Troponin was elevated at 576. Aspirin given inpatient in the ER with heparin drip started. Repeat EKG showed NSR with lateral ST�T wave changes. Echo showed
mitral regurgitation that was eccentric and possibly severe. He was sent to [facility] for a left heart catheterization which he obtained on 12/22 showing complex three-vessel CAD including the left main disease with mildly elevated pulmonary
filling pressures. Echo obtained here on 12/23 showed mildly reduced LVEF at 40-45%, with normal RV, with mild MR with moderate leaflet thickening and calcification, and mild TR and mildly elevated PASP at [address] surgery was consulted given
triple-vessel disease including left main and he was evaluated for CABG. Risks and benefits of the procedure were discussed with the patient and he agreed to surgical revascularization. On 12/26/2024, he obtained a CABG x 4 with a left atrial
appendage exclusion with a 50 mm AtriClip, drainage of bilateral pleural effusions, and an encompass MAZE procedure. Of note after he was induced with GA he developed rapid A-fib that degraded into monomorphic VT requiring cardioversion with 200 J
that restored him into sinus rhythm. Also during the case he had a moderate amount of purulent appearing pericardial fluid that was cultured and drained. He did have an IABP inserted into the right common femoral artery with good augmentation. No
post-operative complications were seen and he was transferred to the CVICU for further care with stamp clerk services consulted for additional management/recommendations.
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
dyslipidemia, chewing tobacco dependence
Impression:
#NSTEMI with MV CAD including left main disease s/p CABG x 4+ left atrial appendage exclusion with 50 mm AtriClip and encompass MAZE procedure; also IABP placement (POD #2)
#Anemia due to above
#Intraoperative rapid A-fib that degraded into monomorphic VT following induction requiring synchronized cardioversion x 1 restoring NSR
#Newly Dx a-flutter/A-fib at [facility] (12/21/2024) with spontaneous conversion to NSR on 12/22
#Acute on chronic HFrEF
#ICM
#Hypertension
#PVCs/PACs
#Tobacco use disorder (chewing tobacco use; former tobacco smoker - quit 45 years ago)
Plan:
Patient was extubated to nasal cannula without incident on 12/26/2024 --> this morning he is on room air, breathing comfortably and saturating 95%
Wean supplemental O2 to maintain SpO2 >90-94%
prn nebulized bronchodilators - not currently bronchospastic
Encourage incentive spirometer use q1hr while awake
Pulmonary artery catheter parameters will be followed
Pressors/antihypertensive/inotropes/diuretics will be provided as needed
Maintain MAP>65
Replete electrolytes with K>4, Mg>2
IABP to be removed on 12/27
Monitor chest tube output (bilateral pleural chest tubes + mediastinal chest tubes x 2)
Monitor hemoglobin
Monitor platelet count and coags
Transfuse blood products as needed to maintain Hb>7g/dL, plt>50k (given post-operative status)
CT surgery managing chest tubes
Monitor blood sugar to maintain euglycemia with goal BG 110-140
Insulin drip now off; recommend to use ISS to keep BG at goal as above
Per Dr. Baca, there was a moderate amount of purulent appearing non-malodorous pericardial fluid during the case that was drained and cultured. Continue to monitor cultures which show NGTD
Aspiration precautions
DVT prophylaxis
Early nutrition
Early mobilization
Medical Receptionist services will continue to follow along while pt remains in ICU. Once downgraded to CVICU-tele, then we will sign off at that time. Please call back with any questions or concerns.
Critical care statement: A total of 37 minutes of critical care time was provided for this patient today. This includes management of ventilator, spontaneous breathing trial, arterial blood gases, pressors, of unstable vital signs, evaluation of the
patient at bedside, reviewing the patient's pertinent medical records including radiographs, microbiology, laboratory evaluations, and discussion with primary team and critical care nursing.
Subjective Dataa
Subjective Data
Date of Service:
Date of Service: December 28, 2024
Chief Complaint: Medical Receptionist Follow Up
Subjective:
Pt seen this AM. Doing well. HR 86, BP 104/56 via A-line, PAP 35/14, CO/CI: 3.27/2.06, SpO2 95% on room air, and BP via NIBP 99/59. He is resting in bed in NAD. CT x4 in place. Dobutamine to be turned off this AM.
Review of Systems
General: Other (negative unless mentioned above)
Objective Data
Data Reviewed
Vital Signs / I&O / Oxygen:
Vital Signs
Temp Pulse Resp BP Pulse Ox
98.2 F 86 20 86/46 99
12/28/24 09:00 12/28/24 09:00 12/28/24 09:00 12/28/24 09:00 12/28/24 09:00
Intake and Output
12/27/24 12/28/24 12/29/24
06:59 06:59 06:59
Intake Total 1501.0 / 1535.5 1662.2 / 1716.7 159.1 / 159.1
Output Total 1000 / 1050 1455 / 1525 470 / 470
Balance 501.0 / 485.5 207.2 / 191.7 -310.9 / -310.9
SaO2 [CPAP] 100
SaO2 [SIMV] 100
SaO2 99
Nasal Cannula flow liters per 2
minute
Physical Exam
General: Respiratory Distress (n), Comfortable and Chills (n)
HEENT: Normocephalic and Anicteric
Cardiovascular: S1-S2 and Peripheral Edema (n)
Respiratory: Wheeze (n), Crackles (n), Rhonchi (n), Non-Labored Respirations and Chest Tube (Bilateral pleural chest tubes + mediastinal chest tubes x 2)
GI: Soft, Non Distended, Non Tender and Normal Bowel Sounds
Neurology: Awake, Alert and Tremors (n)
Skin: Warm, Dry, Cyanosis (n) and Jaundice (n)
Labs/Micro/Reports
Lab Data
12/28/24 03:21
12/28/24 03:21
Microbiology
12/26/24 13:44 Heart Anaerobic Culture - Preliminary
Culture pending. Anaerobic cultures are examined after 3
days incubation. Additional information to follow.
12/26/24 13:44 Chest - Unspecified Wound Culture - Preliminary
No growth
12/26/24 13:44 Chest - Unspecified Gram Stain - Preliminary
12/26/24 13:44 Heart Fungal Culture - Preliminary
Culture in progress.
Positive cultures are reported as soon as detected.
Final report to follow in four to five weeks.
--- NOTE | 2024-12-28 09:33 | PTCARENOTE ---
CI 2.37, CO 3.77 and SVR 1209; updated CT AIR COMPRESSOR OPERATOR and Dobutamine turned off at this time; reassess in 1 hour.
--- NOTE | 2024-12-28 11:01 | W.PN.CARDCBS ---
Today's Communication / Plan
-
Cont post op care
Impression / Plan
-
.
Primary care physician: Dr. Rio Brdiges
Primary mash filter press operator: Dr. Stas Coyne, previously followed with Dr. Carter
Impression:
Transferred from [facility] to with NSTEMI 12/22/24
NSTEMI, Troponin 576 at [facility] 12/21/24
CAD
PCI LAD, RCA in [facility] 2001
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
s/p C with distal 80 to 90% stenosis LM, previously placed mid LAD stent widely patent without in-stent restenosis, yet distal LAD widely patent, 90% ostial circumflex stenosis, previously placed overlapping mid RCA stents with 90% stenosis in
the mid RCA at the proximal stent edge followed by severe in-stent restenosis in the midportion of the stent with a 70 to 80% stenosis, distal RCA widely patent 12/22/2024
s/p CABG GARCIA to LAD, vein graft to D1, vein graft to OM, vein graft to distal RCA 12/26/24
Abnormal pericardial fluid 12/26/24
Brief VT with degeneration of Afib during induction with successful shock x1 12/26/24
Newly diagnosed typical atrial flutter
seen on initial ECG at [facility] 12/21/24 and then spontaneously converted to SR 12/22/24
Acute on chronic HFrEF
ICM EF 35-40% by echo 12/21/24
HTN
Prediabetes
PVC's, PAC's
Moderate-severe MR by echo 12/21/24
Mild to mod TR
Dyslipidemia
chewing tobacco dependence
Echo 05/2024: LVEF 50-55%, inferobasal AK, global HK, mild MAC, Trace MR, mild TR/AI, borderline dil AA 3.8cm
Echo 12/21/2024: EF 35 to 40%, basal and mid anterolateral wall, basal and mid inferior wall, and basal and mid inferolateral wall are abnormal, normal RV size and function, aortic sclerosis without stenosis, mild to moderate aortic regurgitation,
moderate to severe MR with eccentrically directed jet, mild to moderate TR, RVSP 48.1 mmHg, dilated ascending aorta 3.66 cm
Echo 12/23/2024: EF 40-45%, inferolateral, anterior, and anterolateral hypokinesis, stage I diastolic dysfunction, mild MR w/ moderate leaflet thickening and calcification, mild AI, mild TR, estimated PAP 33 mmHg
Plan:
s/p urgent CABG following chest pain 12/26/24. Patient with Afib in RVR that degenerated to VT during induction 12/26/24 and patient was shocked x1 with buddhist of SR. Extubated and Levophed weaned 12/26/24 PM.
-Patient admitted to [facility] on 12/21/2024 with SOB and CP. ECG with anterolateral ST changes and troponin was 576. Patient had echo that showed newly reduced EF and WMA along with MR and TR. Patient was transferred to on 12/22/2024 and underwent
cardiac cath as outlined above w/ 80 to 90% distal LM stenosis and the previously placed mid RCA stents have severe in-stent restenosis.
Continue to wean Dobutamine
IABP has been removed.
Possible CT removal.
Remains sinus.
Cont statin, LDL 62.
Cont DAPT with Aspirin 81 mg daily and Plavix 75 mg daily
EF 35 to 40% by echo 12/21/2024.
Postop dose of Toprol-XL and Lisinopril on hold while patient remains on dobutamine
Patient with newly diagnosed paroxysmal A-fib/flutter and will require eventual OAC with [id number] of 4
Discussed with nursing.
HPI: 84 year old male with the PMH of HTN, HLD and CAD s/p VA PCI to proximal LAD and mid RCA 2001 and RCA in stent restenosis dilated with cutting balloon and brachytherapy 2002 in [facility] who presented to the Emergency room for evaluation of
worsening SOB x2� weeks� with intermittent chest tightness. Upon arrival he was 98% on RA with BP 104/61. EKG showed AFlutter (new) with anterolateral STTW changes. CTA chest was negative for PE. BNP 3003 Trp 576, 745, 847, 1037, 1118 with CPK�s
275, 295, 417, 423, 429, MB peaked at 46.1. ASA 324mg was given in the ED and IV Heparin gtt was started. Repeat EKG showed NSR with lateral STTWA. Echo with EF 35-40%, anterolateral and mid inferolateral WMA, moderate-severe MR. He is being
transferred today for [facility].
Progress Note - Logging Supervisor
Subjective
Date of Service: December 28, 2024
Pt seen and examined. No cp or dyspnea.
Objective
Labs:
12/28/24 03:21
12/28/24 03:21
Labs
Hgb 7.9 g/dL (13.0-18.0) L 12/28/24 03:21
Hct 23.3 % (39.0-52.0) L 12/28/24 03:21
Plt Count 160 10^3/uL (130-400) 12/28/24 03:21
PT 20.5 Sec (11.4-14.6) H 12/26/24 17:37
INR 1.74 12/26/24 17:37
APTT 39.2 Sec (23.4-35.0) H 12/26/24 17:37
Sodium 133 mmol/L (135-145) L 12/28/24 03:21
Potassium 5.1 mmol/L (3.5-5.1) 12/28/24 03:21
BUN 52 mg/dl (9-20) H 12/28/24 03:21
Creatinine 1.5 mg/dL (0.7-1.3) H 12/28/24 03:21
Glucose 127 mg/dl (70-99) H 12/28/24 03:21
Troponins
12/25/24 12/26/24
20:01 04:46
Troponin I 2.850 H* 2.940 H*
Vital Signs and I&O:
Vital Signs
Temp Pulse Resp BP Pulse Ox
98.6 F 85 20 93/62 96
12/28/24 10:00 12/28/24 10:45 12/28/24 10:00 12/28/24 10:02 12/28/24 10:00
Vital Signs
Temp Pulse Resp BP Pulse Ox
98.6 F 85 20 93/62 96
12/28/24 10:00 12/28/24 10:45 12/28/24 10:00 12/28/24 10:02 12/28/24 10:00
Intake & Output
12/26/24 12/27/24 12/28/24 12/29/24
06:59 06:59 06:59 06:59
Intake Total 1501.0 / 1535.5 1662.2 / 1716.7 179.1 / 179.1
Output Total 1000 / 1050 1455 / 1525 795 / 795
Balance 501.0 / 485.5 207.2 / 191.7 -615.9 / -615.9
Physical Exam
Physical Exam
General: No acute distress, AAOX3
Neck: Negative JVD
Heart: Regular, Negative S3 positive S1/S2, Negative S4, No murmur
Lungs: CTA b/l, negative wheezes/rales/rhonchi
Abd: Positive BS, NT/ND, neg rebound/rigidity/guarding
Ext: Negative cyanosis/clubbing/edema
Neuro: nonfocal
--- NOTE | 2024-12-28 12:00 | PTCARENOTE ---
Patient OOB in chair at this time. I/O monitored and charted. Dobutamine titrated per protocol, see titrations for details. CI dipped to <2 while patient was OOB- patient resting and SBP in 80s during this time, however while patient is more alert,
SBP 100s and CI >2, informed provider of this, will continue to monitor at this time and mixed venous drawn and sent to lab per order. Patient back to bed after 3 hours out with Ax2. All needs met at this time, call yo within reach.
[2024-12-28 13:12] LABS: Mixed Venous O2 Saturation 45.3 %
--- NOTE | 2024-12-28 14:42 | PTCARENOTE ---
Right and Left Pleural Chest tubes removed per CT TINNING MACHINE SET UP OPERATOR order; [place] catheter removed per order; Epicardial V wire insulated; pt resting comfortably in bed.
--- NOTE | 2024-12-28 16:00 | PTCARENOTE ---
Patient resting in bed at this time. I/Os charted. Per result of VBG and provider order, dobutamine restarted @ 2mcg/kg/min. All needs met at this time, call yo within reach.
--- NOTE | 2024-12-28 16:06 | CM ---
Chart reviewed. Patient is independent of ADLS, lives with his , son and DIL in a 2 ST, 1st floor set up. Plan is for the patient to return home with CT Transitional RN. CM to follow
[2024-12-28] MEDS: NSS IV (17:34)
[2024-12-28] MEDS: LIPITOR 40 MG PO (17:34)
--- NOTE | 2024-12-28 19:00 | PTCARENOTE ---
Handoff report given to yoseph DEL VALLE. Blood currently infusing per order, VSS at this time. Pt in bed at this time. All needs met, call yo within reach.
--- NOTE | 2024-12-28 20:30 | PTCARENOTE ---
Assumed care of pt from dayshift RN. Walking rounds completed. Pt AAOx3. SR on the tele monitor. Temporary epicardial v-wire insulated. HR 80s. BP 110s-120s/50s. CI>2. B/L palpable radial pulses. B/L DP pulses present via Doppler. +1 upper extremity
edema. Trace throughout. Pt on 2 L NC. POX 98-100%. Lung sounds diminished B/L. Mediastinal CTx2 to -20 suction, no airleak noted, and output WNL. Abdomen soft/nontender. +BS. +BM. Funez catheter intact and draining yellow urine. All surgical sites
stable. Right IJ cordis and left radial a-line intact. 1 Unit PRBCs currently infusing. Dobutamine infusing as ordered. Pt repositioned in bed. See worklist for full nursing assessment and interventions. Call yo within reach.
[2024-12-28] MEDS: SENOKOT-S PO (20:47)
[2024-12-29] VITALS (25 sets, daily range): BP systolic 71–121; BP diastolic 45–70; PULSE 91; O2SAT 99; BMI 29.4
--- NOTE | 2024-12-29 00:43 | PTCARENOTE ---
Pt reassessed. No acute changes in assessment. Pt is SR on the tele monitor. HR 80s. BP stable. Pt on 2 L NC. POX 98%. Mediastinal CT x2 assessment unchanged. Funez catheter intact and draining yellow urine. All surgical sites stable. Dobutamine
infusing as ordered. Denies pain at this time. Pt repositioned in bed. Call yo within reach.
[2024-12-29 04:01] LABS: Hematocrit 26.5 % (39.0-52.0); Hemoglobin 9.1 g/dL (13.0-18.0); Mean Corp Hgb Conc. 34.3 g/dL (33.0-37.0); Mean Corpuscular Hgb 30.3 pg (27.0-31.0); Mean Corpuscular Volume 88.3 fL (80.0-94.0); Mean Platelet Volume 10.4 fL (7.4-10.4); Platelet Count 216 10^3/uL (130-400); White Blood Cell Count 11.2 10^3/uL (4.8-10.8)
[2024-12-29 04:08] LABS: Blood Urea Nitrogen 52 mg/dl (9-20); Calcium 8.7 mg/dl (8.4-10.2); Carbon Dioxide 27 mmol/L (22-30); Chloride 104 mmol/L (98-107); Estimated Creatinine Clearance 45 ml/min; Glucose 120 mg/dl (70-99); Magnesium 2.3 mg/dl (1.6-2.3); Potassium 4.5 mmol/L (3.5-5.1); Sodium 134 mmol/L (135-145); eGFR > 60.00
--- NOTE | 2024-12-29 04:14 | PTCARENOTE ---
Assessment unchanged. Pt SR on the tele monitor. HR 80s. BP stable. 2 L NC. POX 98-100%. CT assessment unchanged. Funez catheter intact and draining yellow urine. Dobutamine infusing as ordered. Labs drawn and sent. Call yo within reach.
--- NOTE | 2024-12-29 04:30 | W.PN.CT ---
Today's Communication / Plan
-
Plan:
-No major issues overnight. Hemodynamically and neurologically intact
-Weaned off balloon pump and D/C'd on 12/27. Groin intact without significant hematoma
-BP has been soft postop
-Did not tolerating weaning off of Dobutamine yesterday, back on Dobutamine gtt @ 2. [place] was d/c'd yesterday
-MVO2 63%, 24hr U/O 1770 mL
-Consider D/C of chest tubes: 2meds
-Received 1u PRBC yesterday for h/h 7.9/23.3, improved to 9.1/26.5. Will diurese if BP permits
-Monitor hyponatremia, 133->134
-Creatinine is back to baseline 1.5->1.2, baseline 1.0-1.3
-Mag oxide placed on hold, mg 2.3
-Amiodarone and BB on hold while on dobutamine gtt
-Cont. current meds (ASA, Plavix, Lipitor; Amiodarone and BB on hold)
-Maintain a-line while on dobutamine
-Will maintain hendrix while dobutamine for accurate I/O
-Will transfer to tele phase when off dobutamine
-Maintain cordis
-Encourage use of IS
-Wean off of O2
-OOB into chair/Ambulate
Assessment / Plan
-
Assessment:
-S/P Emergent Median sternotomy/CABG x 4 (ALVARO to LAD, GSV to D1, GSV to OM, GSV to distal RCA)/Endoscopic harvest/prep of RLE GSV/Encompass MAZE procedure/ ELAA (50mm Atriclip)/ Drainage of B/L pleural effusions, by Dr. Baca, 12/26/24, pod#3
-Attempted IABP placement via L TRAFFIC INVESTIGATOR - unsuccessful - manual pressure held
-Successful placement of IABP via R TRAFFIC INVESTIGATOR w/ institution of support w/ good augmentation
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
-Hx PCI S/P mid LAD and mid RCA stents, 2001 and 2002 in [facility]
-NSTEMI (peak trop 7.98)
-USA
-Preop USA and acute hypotension
-CAT
-ICM
-Acute on chronic systolic CHF
-LVEF 40-45% per TTE 12/23
-Mild MR/AI/TR, per TTE 12/23
-New/y diagnosed a-fib/flutter @ [facility] 12/21, Spontaneous conversion to NSR on 12/22
-Hx PAC's/PVC's
-HTN
-HLD
-Current tobacco use (cigars)
-Anemia
-Intraop ACLS - no CPR, synchronized cardioversion x 1 @ 200J for AF to monomorphic VT following induction
-Acute postop blood loss on Chronic Anemia (stable without blood transfusion)
-Acute postop atelectasis
-Acute postop hypovolemia with subsequent hypervolemia
-Acute postop hyponatremia likely from fluid overload
-Acute postop renal insufficiency/Azotemia
Discussed patient care with: Cardiology, Nursing, Respiratory Therapy, Pharmacy and Care Team
Subjective
Procedure
S/P Emergent Median sternotomy/CABG x 4 (ALVARO to LAD, GSV to D1, GSV to OM, GSV to distal RCA)/Endoscopic harvest/prep of RLE GSV/Encompass MAZE procedure/ ELAA (50mm Atriclip)/ Drainage of B/L pleural effusions, by Dr. Baca, 12/26/24
-
Date of Service: December 29, 2024
Pt c/o mild incsional pain, otherwise feels well
Objective Data
-
Lab Results
12/29/24 03:29
12/29/24 03:30
PT 20.5 Sec (11.4-14.6) H 12/26/24 17:37
INR 1.74 12/26/24 17:37
APTT 39.2 Sec (23.4-35.0) H 12/26/24 17:37
Vital Signs
Vital Signs
Temp Pulse Resp BP Pulse Ox
98.3 F 88 14 105/64 100
12/29/24 00:00 12/29/24 04:00 12/29/24 04:00 12/29/24 04:00 12/29/24 04:00
CT Intake/Output/Weight
12/28/24 12/28/24 12/29/24
06:59 18:59 06:59
Intake Total 437.6 / 1716.7 573.5 / 971.5 398.0 / 971.5
Output Total 730 / 1525 1420 / 1915 495 / 1915
Balance -292.4 / 191.7 -846.5 / -943.5 -97.0 / -943.5
SaO2: 100 (2L)
Physical Exam
-
General: Awake, Oriented and AOx3
Cardiovascular: Regular rate & rhythm, No Murmurs and No Gallop
Respiratory: Decreased Breath Sounds (at bases, otherwise clear)
Sternum: Stable
Incision: Clean, Dry, Intact and Dressing Intact
Extremities: Other (+trace edema)
Data Reviewed
-
Lab Results: Results Reviewed
Medications: Active Meds Reviewed
Chest X-Ray: Report Reviewed and Image Reviewed
ECG: Report Reviewed and Image Reviewed
[2024-12-29] MEDS: CALCIUM GLUCONATE 100 IV (05:02)
[2024-12-29] MEDS: TYLENOL 1000 MG PO ×3 (05:02→21:18)
[2024-12-29] MEDS: SENOKOT-S PO ×2 (07:38→20:07)
--- NOTE | 2024-12-29 07:58 | W.PN.CARDCBS ---
Addendum entered and electronically signed by Len Berry MD 12/29/24 09:14:
I saw and examined the patient.
The Electrical Maintenance Man's note was reviewed and I agree with the note.
Comment:
GEN: No distress, awake, Ox3
HEENT: supple, anicteric, mmm
LUNGS: CTA, no wheezes/rales
CV: Reg, S1/S2, no murmur/rub
ABD: soft, BS+, NT/ND
EXT: No edema
NEURO: Gross non-focal
SKIN: sternotomy
Plan:
Overall looks pretty good. Remains in sinus rhythm. Wean off dobutamine today.
Hemoglobin stable at 9.1. Creatinine is improved and stable at 1.2.
Hopefully start metoprolol over next 24 hours.
Continue aspirin and Plavix.
Original Note:
Today's Communication / Plan
-
Dobutamine at 1
GDMT on hold due to hypotension
Eventual OAC
Impression / Plan
-
.
Primary care physician: Dr. Rio Bridges
Primary materials management supervisor: Dr. Stas Coyne, previously followed with Dr. Carter
Impression:
Transferred from [facility] to with NSTEMI 12/22/24
NSTEMI, Troponin 576 at [facility] 12/21/24
CAD
PCI LAD, RCA in [facility] 2001
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
s/p C with distal 80 to 90% stenosis LM, previously placed mid LAD stent widely patent without in-stent restenosis, yet distal LAD widely patent, 90% ostial circumflex stenosis, previously placed overlapping mid RCA stents with 90% stenosis in
the mid RCA at the proximal stent edge followed by severe in-stent restenosis in the midportion of the stent with a 70 to 80% stenosis, distal RCA widely patent 12/22/2024
s/p CABG GARCIA to LAD, vein graft to D1, vein graft to OM, vein graft to distal RCA 12/26/24
Abnormal pericardial fluid 12/26/24
Brief VT with degeneration of Afib during induction with successful shock x1 12/26/24
Newly diagnosed typical atrial flutter
seen on initial ECG at [facility] 12/21/24 and then spontaneously converted to SR 12/22/24
Acute on chronic HFrEF
ICM EF 35-40% by echo 12/21/24
HTN
Prediabetes
PVC's, PAC's
Moderate-severe MR by echo 12/21/24
Mild to mod TR
Dyslipidemia
chewing tobacco dependence
Echo 05/2024: LVEF 50-55%, inferobasal AK, global HK, mild MAC, Trace MR, mild TR/AI, borderline dil AA 3.8cm
Echo 12/21/2024: EF 35 to 40%, basal and mid anterolateral wall, basal and mid inferior wall, and basal and mid inferolateral wall are abnormal, normal RV size and function, aortic sclerosis without stenosis, mild to moderate aortic regurgitation,
moderate to severe MR with eccentrically directed jet, mild to moderate TR, RVSP 48.1 mmHg, dilated ascending aorta 3.66 cm
Echo 12/23/2024: EF 40-45%, inferolateral, anterior, and anterolateral hypokinesis, stage I diastolic dysfunction, mild MR w/ moderate leaflet thickening and calcification, mild AI, mild TR, estimated PAP 33 mmHg
Plan:
-Symptomatic hypotension 12/29/24 AM and back to bed. Dobutamine running at 1.
-Hgb improved to 9.1 following 1 unit of PRBCs 12/28/24 PM
-Patient is s/p urgent CABG following chest pain 12/26/24. Patient admitted to [facility] on 12/21/2024 with NSTEMI and transferred here for cath 12/22/2024 and underwent cardiac cath as outlined above w/ 80 to 90% distal LM stenosis and the previously placed
mid RCA stents have severe in-stent restenosis.
-Patient with Afib in RVR that degenerated to VT during induction 12/26/24 and patient was shocked x1 with church of SR.
-Tele reviewed by me 12/29/24 and looks like SR. No significant ectopy
-LDL 62. Outpatient dose of atorvastatin 40 mg daily ordered
-Aspirin 81 mg daily and Plavix 75 mg daily have been continued
-Diuresed prior to CABG. No Lasix ordered currently. Patient was not taking Lasix prior to admission.
-EF 40-45% by echo 12/23/2024.
-Postop dose of Toprol-XL 12.5 mg BID is on hold while patient remains on dobutamine
-Outpatient dose of lisinopril 20 mg daily is on hold due to hypotension
-Outpatient dose of amlodipine 5 mg was stopped in favor of BB
-Patient with newly diagnosed paroxysmal A-fib/flutter and will require eventual OAC with [id number] of 4
HPI: 84 year old male with the PMH of HTN, HLD and CAD s/p IN PCI to proximal LAD and mid RCA 2001 and RCA in stent restenosis dilated with cutting balloon and brachytherapy 2002 in [facility] who presented to the Emergency room for evaluation of
worsening SOB x2� weeks� with intermittent chest tightness. Upon arrival he was 98% on RA with BP 104/61. EKG showed AFlutter (new) with anterolateral STTW changes. CTA chest was negative for PE. BNP 3003 Trp 576, 745, 847, 1037, 1118 with CPK�s
275, 295, 417, 423, 429, MB peaked at 46.1. ASA 324mg was given in the ED and IV Heparin gtt was started. Repeat EKG showed NSR with lateral STTWA. Echo with EF 35-40%, anterolateral and mid inferolateral WMA, moderate-severe MR. He is being
transferred today for [facility].
Progress Note - Concrete Spreader
Subjective
Date of Service: December 29, 2024
Feels tired, is hopeful to get out of bed again later today, staying positive
Objective
Labs:
12/29/24 03:29
12/29/24 03:30
Labs
Hgb 9.1 g/dL (13.0-18.0) L 12/29/24 03:29
Hct 26.5 % (39.0-52.0) L 12/29/24 03:29
Plt Count 216 10^3/uL (130-400) D 12/29/24 03:29
PT 20.5 Sec (11.4-14.6) H 12/26/24 17:37
INR 1.74 12/26/24 17:37
APTT 39.2 Sec (23.4-35.0) H 12/26/24 17:37
Sodium 134 mmol/L (135-145) L 12/29/24 03:30
Potassium 4.5 mmol/L (3.5-5.1) 12/29/24 03:30
BUN 52 mg/dl (9-20) H 12/29/24 03:30
Creatinine 1.2 mg/dL (0.7-1.3) 12/29/24 03:30
Glucose 120 mg/dl (70-99) H 12/29/24 03:30
Vital Signs and I&O:
Vital Signs
Temp Pulse Resp BP Pulse Ox
98.3 F 83 16 106/61 100
12/29/24 00:00 12/29/24 07:00 12/29/24 07:00 12/29/24 07:00 12/29/24 07:00
Vital Signs
Temp Pulse Resp BP Pulse Ox
98.3 F 83 16 106/61 100
12/29/24 00:00 12/29/24 07:00 12/29/24 07:00 12/29/24 07:00 12/29/24 07:00
Intake & Output
12/27/24 12/28/24 12/29/24 12/30/24
06:59 06:59 06:59 06:59
Intake Total 1501.0 / 1535.5 1662.2 / 1716.7 1001.1 / 1015.9 14.8 / 14.8
Output Total 1000 / 1050 1455 / 1525 2075 / 2135 60 / 60
Balance 501.0 / 485.5 207.2 / 191.7 -1073.9 / -1119.1 -45.2 / -45.2
Physical Exam
Physical Exam
GEN: NAD. AAO x3
HEENT: EOMI
LUNGS: RA. No audible wheeze
CV: SR on tele.
NEURO: Gross non-focal
SKIN: No rash
--- NOTE | 2024-12-29 08:00 | PTCARENOTE ---
Addendum entered by Mariza Mendoza RN 12/29/24 08:51:
Sternal incision with acquacel dressing, CDI, L/R groin sites soft and dressings CDI, R knee incision glued INVERTED BLOCK OPERATOR.
Original Note:
Handoff report received from nightshift RN. Pt in bed, AOx4, NSR on monitor, +rub present, SHEET MANAGER made aware, 100% NC, trialed on RA at this time. IS 1000, lungs clear diminished. + radial and DP pulses, DPs confirmed with doppler. Dobutamine weaned to
[address] -20 suction, no crepitus or airleak noted. Funez draining clear yellow urine, I/Os obtained. All needs met at this time, call yo within reach.
--- NOTE | 2024-12-29 08:10 | W.PN.INTV ---
Today's Communication / Plan
Recommendations
Up OOB as tolerated
Pain control
Goal BG 110-140
Encourage IS use q1hr while awake
Cardiac rehab consult
Patient is now CVICU�telemetry status. No additional recommendations at this time. Senior Python Developer/Pulmonary service will now sign off. Please reconsult if there are any additional questions/concerns, or if patient's respiratory status deteriorates.
Assessment
-
Assessment: 84-year-old male with a past medical history of CAD s/p stents to LAD + RCA complicated by ISR in RCA s/p cutting balloon + brachytherapy, atrial flutter (new diagnosis), HFrEF, hypertension, prediabetes, PVCs, PACs, MR and former
tobacco smoker who now uses chewing tobacco who presents with transfer from [facility] due to progressive shortness of breath x 2 weeks with chest pressure. Patient was admitted to [facility] on 12/21/2024 with initial EKG showing atrial flutter
with anterolateral ST�T wave changes. CTA was reportedly negative for an acute PE. Troponin was elevated at 576. Aspirin given inpatient in the ER with heparin drip started. Repeat EKG showed NSR with lateral ST�T wave changes. Echo showed
mitral regurgitation that was eccentric and possibly severe. He was sent to [facility] for a left heart catheterization which he obtained on 12/22 showing complex three-vessel CAD including the left main disease with mildly elevated pulmonary
filling pressures. Echo obtained here on 12/23 showed mildly reduced LVEF at 40-45%, with normal RV, with mild MR with moderate leaflet thickening and calcification, and mild TR and mildly elevated PASP at [address] surgery was consulted given
triple-vessel disease including left main and he was evaluated for CABG. Risks and benefits of the procedure were discussed with the patient and he agreed to surgical revascularization. On 12/26/2024, he obtained a CABG x 4 with a left atrial
appendage exclusion with a 50 mm AtriClip, drainage of bilateral pleural effusions, and an encompass MAZE procedure. Of note after he was induced with GA he developed rapid A-fib that degraded into monomorphic VT requiring cardioversion with 200 J
that restored him into sinus rhythm. Also during the case he had a moderate amount of purulent appearing pericardial fluid that was cultured and drained. He did have an IABP inserted into the right common femoral artery with good augmentation. No
post-operative complications were seen and he was transferred to the CVICU for further care with clerical secretary services consulted for additional management/recommendations.
Chronic conditions CODING SPECIALIST: CAD s/p PCI to LAD + RCA (2001) complicated by ISR in RCA s/p dilation with cutting balloon + brachytherapy, atrial flutter (new diagnosis), HFrEF, hypertension, prediabetes mellitus, PVCs, PACs, mitral regurgitation,
dyslipidemia, chewing tobacco dependence
Impression:
#NSTEMI with MV CAD including left main disease s/p CABG x 4+ left atrial appendage exclusion with 50 mm AtriClip and encompass MAZE procedure; also IABP placement (POD #3)
#Anemia due to above
#Intraoperative rapid A-fib that degraded into monomorphic VT following induction requiring synchronized cardioversion x 1 restoring NSR
#Newly Dx a-flutter/A-fib at [facility] (12/21/2024) with spontaneous conversion to NSR on 12/22
#Acute on chronic HFrEF
#ICM
#Hypertension
#PVCs/PACs
#Tobacco use disorder (chewing tobacco use; former tobacco smoker - quit 45 years ago)
Plan:
Patient was extubated to nasal cannula without incident on 12/26/2024 --> this morning he is on room air, breathing comfortably and saturating 99%
Maintain SpO2 >90-94%
prn nebulized bronchodilators - not currently bronchospastic
Encourage incentive spirometer use q1hr while awake
Pressors/antihypertensive/inotropes/diuretics will be provided as needed
Maintain MAP>65
Replete electrolytes with K>4, Mg>2
IABP removed on 12/27
All chest tubes are now removed as of today
Monitor hemoglobin
Monitor platelet count and coags
Transfuse blood products as needed to maintain Hb>7g/dL, plt>50k (given post-operative status)
Monitor blood sugar to maintain euglycemia with goal BG 110-140
Insulin drip now off; recommend to use ISS to keep BG at goal as above
Per Dr. Baca, there was a moderate amount of purulent appearing non-malodorous pericardial fluid during the case that was drained and cultured. Continue to monitor cultures which show NGTD
Aspiration precautions
DVT prophylaxis
Early nutrition
Early mobilization
Patient is now CVICU�telemetry status. No additional recommendations at this time. Senior Python Developer/Pulmonary service will now sign off. Thank you for allowing us to be involved in the care of this patient. Please reconsult if there are any
additional questions/concerns, or if patient's respiratory status deteriorates.
Total time spent today was 58 minutes for this encounter. Time includes reviewing laboratory test/imaging results, reviewing pertinent medical records, obtaining and reviewing medical history, performing an appropriate exam, ordering medications,
tests and procedures. Time also includes documentation of this encounter, coordinating patient care and communicating with other healthcare professionals. Total time does not include separately billed tests performed on this date of service.
Subjective Dataa
Subjective Data
Date of Service:
Date of Service: December 29, 2024
Chief Complaint: Senior Python Developer Follow Up
Subjective:
Patient seen and evaluated today at bedside. He feels well with no SOB, CLARKE, nausea, fevers or chills. Sitting up in bed with the help of the nurse in no acute distress. Heart rate 84, BP 101/70. Afebrile overnight. Currently on room air
breathing comfortably, saturating 99%.
Review of Systems
General: Other (Negative unless mentioned above)
Objective Data
Data Reviewed
Vital Signs / I&O / Oxygen:
Vital Signs
Temp Pulse Resp BP Pulse Ox
98.5 F 85 17 99/59 96
12/29/24 08:00 12/29/24 09:00 12/29/24 09:00 12/29/24 09:00 12/29/24 09:00
Intake and Output
12/28/24 12/29/24 12/30/24
06:59 06:59 06:59
Intake Total 1662.2 / 1716.7 1001.1 / 1015.9 39.6 / 39.6
Output Total 1455 / 1525 2075 / 2135 165 / 165
Balance 207.2 / 191.7 -1073.9 / -1119.1 -125.4 / -125.4
SaO2 [CPAP] 100
SaO2 [SIMV] 100
SaO2 96
Nasal Cannula flow liters per 2
minute
Physical Exam
General: Respiratory Distress (n), Comfortable and Chills (n)
HEENT: Normocephalic and Anicteric
Cardiovascular: S1-S2 and Peripheral Edema (n)
Respiratory: Wheeze (n), Crackles (Bibasilar), Rhonchi (n) and Non-Labored Respirations
GI: Soft, Non Distended, Non Tender and Normal Bowel Sounds
Neurology: Awake, Alert, Oriented and Tremors (n)
Skin: Warm, Dry, Cyanosis (n) and Jaundice (n)
Labs/Micro/Reports
Lab Data
12/29/24 03:29
12/29/24 03:30
Microbiology
12/26/24 13:44 Heart Anaerobic Culture - Preliminary
Culture pending. Anaerobic cultures are examined after 3
days incubation. Additional information to follow.
12/26/24 13:44 Chest - Unspecified Wound Culture - Preliminary
No growth
12/26/24 13:44 Chest - Unspecified Gram Stain - Preliminary
12/26/24 13:44 Heart Fungal Culture - Preliminary
Culture in progress.
Positive cultures are reported as soon as detected.
Final report to follow in four to five weeks.
[2024-12-29] MEDS: NEURONTIN 100 MG PO ×3 (08:16→21:18)
[2024-12-29] MEDS: PLAVIX 75 MG PO (08:16)
[2024-12-29] MEDS: LOW STRENGTH ASPIRIN 81 MG PO (08:16)
[2024-12-29] MEDS: PROTONIX 40 MG PO (08:16)
[2024-12-29] MEDS: BACTROBAN 2% OINTMENT 1 APPLIC NASAL ×2 (08:17→20:06)
--- NOTE | 2024-12-29 12:00 | PTCARENOTE ---
Patient in bed at this time. Dobutamine off per order at 1000. Mediastinal chest tubes, hendrix catheter and L radial ART line d/c'd per order. Patient tolerated procedures well. Patient DTV by 1750. Cardiac rehab in after to work with patient and get
pt OOB.
--- NOTE | 2024-12-29 14:06 | CM ---
Chart reviewed. Patient is independent of ADLS, lives with his , son and DIL in a 2 ST, 1st floor set up, 0 TRUDY, 0 DME. Plan is for the patient to return home with CT Transitional RN. CM to follow
--- NOTE | 2024-12-29 16:00 | PTCARENOTE ---
Patient OOB in chair at this time. Patient did work with cardiac rehab and walked down the read and back to room. Family visited as well. VSS at this time. pain managed with scheduled pain meds. All needs met at this time, call yo within reach.
[2024-12-29] MEDS: PACERONE 200 MG PO ×2 (16:24→21:18)
[2024-12-29] MEDS: NSS 500 IV (16:27)
[2024-12-29] MEDS: LIPITOR 40 MG PO (18:02)
--- NOTE | 2024-12-29 18:15 | PTCARENOTE ---
Patient OOB in chair at this time, family visiting. VSS, pt does not c/o pain at this time. R cordis present, CDI with KVO infusing. All needs met at this time, call yo within reach. Handoff report given to nightshift RN at change of shift.
[2024-12-29] MEDS: TOPROL XL 12.5 MG PO (20:07)
--- NOTE | 2024-12-29 20:41 | PTCARENOTE ---
Assumed care of pt from dayshift RN. Walking rounds completed. Pt is oriented to person/place/time. SR on the tele monitor. HR 80s. Temporary epicardial v-wires insulated. BP stable. Weak pulses throughout. Trace LE edema. +1 B/L UE edema. Pt 98% on
RA. Lung sounds diminished in the base. Deep breathing and IS encouraged. Abdomen soft/nontender. +BS. Pt has voided post hendrix removal - has not voided on this shift. All surgical sites stable. Right IJ cordis and PIV x1 intact. See worklist for
full nursing assessment and interventions. Call yo within reach.
[2024-12-30] VITALS (15 sets, daily range): BP systolic 83–125; BP diastolic 48–70; PULSE 78; O2SAT 98; BMI 29.6
--- NOTE | 2024-12-30 00:28 | PTCARENOTE ---
No change in assessment. Pt SR on the tele monitor. HR 70s. BP stable. Pt on RA. POX 94%. All surgical sites stable. Denies pain at this time. Call yo within reach.
--- NOTE | 2024-12-30 03:51 | PTCARENOTE ---
No acute changes in assessment. Pt is SR on the tele monitor. HR 70s. BP stable. Pt on RA. POX 97%. All surgical sites stable. Labs drawn and sent. Pt repositioned in bed. Call yo within reach.
[2024-12-30 04:40] LABS: Blood Urea Nitrogen 40 mg/dl (9-20); Calcium 8.4 mg/dl (8.4-10.2); Carbon Dioxide 26 mmol/L (22-30); Chloride 103 mmol/L (98-107); Estimated Creatinine Clearance 60 ml/min; Glucose 105 mg/dl (70-99); Magnesium 2.2 mg/dl (1.6-2.3); Potassium 4.7 mmol/L (3.5-5.1); Sodium 134 mmol/L (135-145); eGFR > 60.00
[2024-12-30 04:46] LABS: Hematocrit 27.5 % (39.0-52.0); Hemoglobin 9.4 g/dL (13.0-18.0); Mean Corp Hgb Conc. 34.2 g/dL (33.0-37.0); Mean Corpuscular Hgb 30.1 pg (27.0-31.0); Mean Corpuscular Volume 88.1 fL (80.0-94.0); Mean Platelet Volume 9.8 fL (7.4-10.4); Platelet Count 275 10^3/uL (130-400); Red Blood Cell Count 3.12 10^6/uL (4.70-6.10); Red Cell Dist. Width 13.9 % (11.5-14.5); White Blood Cell Count 10.4 10^3/uL (4.8-10.8)
[2024-12-30] MEDS: TYLENOL 1000 MG PO ×3 (06:24→21:22)
--- NOTE | 2024-12-30 07:31 | W.PN.CT ---
Today's Communication / Plan
-
-pod #4
-no issues overnight, feels better overall, ambulated in hallway
-IABP dcd 12/27
-1 pRBC on 12/28 for hg 7.9. Hg 9.4 today
-Dobut weaned off 12/29
-hypotensive 90s-low 100s postop. po Amio and Toprol 12.5 bid started 12/29
-all CTs dcd
-follow Cr- 0.9 today (peak Cr 1.5 on 12/28, baseline 1.0-1.3)
-current meds (ASA, Plavix, Lipitor, Toprol, Amio, Protonix)
-encourage IS, OOB, ambulate
Assessment / Plan
-
Assessment:
-S/P Emergent Median sternotomy/CABG x 4 (ALVARO to LAD, GSV to D1, GSV to OM, GSV to distal RCA)/Endoscopic harvest/prep of RLE GSV/Encompass MAZE procedure/ ELAA (50mm Atriclip)/ Drainage of B/L pleural effusions, by Dr. Baca, 12/26/24, pod#4
-Post-FREDRICK: LVEF 30-35%, slightly improved subjective contractility, moderate MR, moderate TR, [id number] AI, B/L pleural effusions no longer present, [id number] confirmed excluded, IABP properly positioned
-Attempted IABP placement via L RETAIL DELIVERY DRIVER - unsuccessful - manual pressure held
-Successful placement of IABP via R RETAIL DELIVERY DRIVER w/ institution of support w/ good augmentation
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
-Hx PCI S/P mid LAD and mid RCA stents, 2001 and 2002 in [facility]
-NSTEMI (peak trop 7.98)
-USA
-Preop USA and acute hypotension
-CAT
-ICM
-Acute on chronic systolic CHF
-LVEF 40-45% per TTE 12/23
-Mild MR/AI/TR, per TTE 12/23
-New/y diagnosed a-fib/flutter @ [facility] 12/21, Spontaneous conversion to NSR on 12/22
-Hx PAC's/PVC's
-HTN
-HLD
-Current tobacco use (cigars)
-Anemia
-Intraop ACLS - no CPR, synchronized cardioversion x 1 @ 200J for AF to monomorphic VT following induction
-Acute postop blood loss on Chronic Anemia (stable without blood transfusion)
-Acute postop atelectasis
-Acute postop hypovolemia with subsequent hypervolemia
-Acute postop hyponatremia likely from fluid overload
-Acute postop renal insufficiency/Azotemia
Discussed patient care with: Nursing and Care Team
Subjective
Procedure
S/P Emergent Median sternotomy/CABG x 4 (ALVARO to LAD, GSV to D1, GSV to OM, GSV to distal RCA)/Endoscopic harvest/prep of RLE GSV/Encompass MAZE procedure/ ELAA (50mm Atriclip)/ Drainage of B/L pleural effusions, by Dr. Baca, 12/26/24
-
Date of Service: December 30, 2024
Objective Data
-
PT 20.5 Sec (11.4-14.6) H 12/26/24 17:37
INR 1.74 12/26/24 17:37
APTT 39.2 Sec (23.4-35.0) H 12/26/24 17:37
Vital Signs
Vital Signs
Temp Pulse Resp BP Pulse Ox
98.5 F 77 18 94/58 94
12/30/24 00:10 12/30/24 00:15 12/30/24 00:10 12/30/24 00:10 12/30/24 00:10
CT Intake/Output/Weight
12/29/24 12/29/24 12/30/24
06:59 18:59 06:59
Intake Total 427.6 / 1015.9 552.0 / 602.0 50 / 602.0
Output Total 655 / 2135 550 / 700 150 / 700
Balance -227.4 / -1119.1 2.0 / -98.0 -100 / -98.0
SaO2: 94
Physical Exam
-
General: Awake and AOx3
Cardiovascular: Regular rate & rhythm, No Murmurs and Rub
Respiratory: Decreased Breath Sounds
Sternum: Stable
Incision: Clean, Dry and Intact
Extremities: Other (R leg with trace edema. L leg- no edema)
Abdomen: soft, nontender, + bowel sounds
Data Reviewed
-
Lab Results: Results Reviewed
Medications: Active Meds Reviewed
Chest X-Ray: Report Reviewed and Image Reviewed
ECG: Report Reviewed and Image Reviewed
--- NOTE | 2024-12-30 07:34 | W.PN.CARDCBS ---
Addendum entered and electronically signed by Len Berry MD 12/30/24 16:29:
I saw and examined the patient.
The Admissions Clerk's note was reviewed and I agree with the note.
Comment:
GEN: No distress, awake, Ox3
HEENT: supple, anicteric, mmm
LUNGS: CTA, no wheezes/rales
CV: Reg, S1/S2, no gallop
ABD: soft, BS+, NT/ND
EXT: No edema
NEURO: Gross non-focal
SKIN: sternotomy
Plan:
Remains in sinus rhythm. Overall doing well. Continue amiodarone and Toprol.
Continue aspirin and Plavix. Hemoglobin stable at 9.4.
Creatinine normal at 0.9.
Original Note:
Today's Communication / Plan
-
Remains in SR with amio and Toprol XL, had Aflutter at [facility] and then had Afib that degenerated into VT with induction Friday night, has FAROOQ clip
Cont DAPT for NSTEMI on admission
Impression / Plan
-
Primary care physician: Dr. Rio Bridges
Primary director of outreach: Dr. Stas Coyne, previously followed with Dr. Carter
Impression:
Transferred from [facility] to [facility] with NSTEMI 12/22/24
NSTEMI, Troponin 576 at [facility] 12/21/24
CAD
PCI LAD, RCA in [facility] 2001
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
s/p C with distal 80 to 90% stenosis LM, previously placed mid LAD stent widely patent without in-stent restenosis, yet distal LAD widely patent, 90% ostial circumflex stenosis, previously placed overlapping mid RCA stents with 90% stenosis in
the mid RCA at the proximal stent edge followed by severe in-stent restenosis in the midportion of the stent with a 70 to 80% stenosis, distal RCA widely patent 12/22/2024
s/p CABG GARCIA to LAD, vein graft to D1, vein graft to OM, vein graft to distal RCA 12/26/24
Abnormal pericardial fluid 12/26/24
Brief VT with degeneration of Afib during induction with successful shock x1 12/26/24
Newly diagnosed typical atrial flutter
seen on initial ECG at [facility] 12/21/24 and then spontaneously converted to SR 12/22/24
Acute on chronic HFrEF
ICM EF 35-40% by echo 12/21/24
HTN
Prediabetes
PVC's, PAC's
Moderate-severe MR by echo 12/21/24
Mild to mod TR
Dyslipidemia
chewing tobacco dependence
Echo 05/2024: LVEF 50-55%, inferobasal AK, global HK, mild MAC, Trace MR, mild TR/AI, borderline dil AA 3.8cm
Echo 12/21/2024: EF 35 to 40%, basal and mid anterolateral wall, basal and mid inferior wall, and basal and mid inferolateral wall are abnormal, normal RV size and function, aortic sclerosis without stenosis, mild to moderate aortic regurgitation,
moderate to severe MR with eccentrically directed jet, mild to moderate TR, RVSP 48.1 mmHg, dilated ascending aorta 3.66 cm
Echo 12/23/2024: EF 40-45%, inferolateral, anterior, and anterolateral hypokinesis, stage I diastolic dysfunction, mild MR w/ moderate leaflet thickening and calcification, mild AI, mild TR, estimated PAP 33 mmHg
Plan:
-Symptomatic hypotension improved 12/30/24, sitting in chair with BP 91/58 and asymptomatic.
-Hgb stable at 9.4 on 12/30/24, labs reviewed by me
-Patient is s/p urgent CABG following chest pain 12/26/24. Patient admitted to [facility] on 12/21/2024 with NSTEMI and transferred here for cath 12/22/2024 and underwent cardiac cath as outlined above w/ 80 to 90% distal LM stenosis and the previously placed
mid RCA stents have severe in-stent restenosis.
-Cont DAPT for NSTEMI on admission
-Patient with Afib in RVR that degenerated to VT during induction 12/26/24 and patient was shocked x1 with quaker of SR. Also noted to be in newly diagnosed typical atrial flutter on admission to [facility] 12/21/24
-[id number] of 4. Patient had LA clip and FREDRICK performed intra-op, but not report available. Immediate post-op progress note from CTS team indicates that there was confirmed exclusion on FREDRICK
-Amiodarone 200 mg TID started 12/29/24
-SR non tele reviewed by me 12/30/24
-LDL 62. Outpatient dose of atorvastatin 40 mg daily ordered
-Aspirin 81 mg daily and Plavix 75 mg daily have been continued
-Diuresed prior to CABG. No Lasix ordered currently. Patient was not taking Lasix prior to admission.
-EF 40-45% by echo 12/23/2024.
-Toprol-XL 12.5 mg BID ordered
-Outpatient dose of lisinopril 20 mg daily is on hold due to hypotension
-Outpatient dose of amlodipine 5 mg was stopped in favor of BB
HPI: 84 year old male with the PMH of HTN, HLD and CAD s/p [place] PCI to proximal LAD and mid RCA 2001 and RCA in stent restenosis dilated with cutting balloon and brachytherapy 2002 in [facility] who presented to the Emergency room for evaluation of
worsening SOB x2� weeks� with intermittent chest tightness. Upon arrival he was 98% on RA with BP 104/61. EKG showed AFlutter (new) with anterolateral STTW changes. CTA chest was negative for PE. BNP 3003 Trp 576, 745, 847, 1037, 1118 with CPK�s
275, 295, 417, 423, 429, MB peaked at 46.1. ASA 324mg was given in the ED and IV Heparin gtt was started. Repeat EKG showed NSR with lateral STTWA. Echo with EF 35-40%, anterolateral and mid inferolateral WMA, moderate-severe MR. He is being
transferred today for [facility].
Progress Note - Radio Electronics Technician
Subjective
Date of Service: December 30, 2024
He feels well, not lightheaded
Objective
Labs:
12/30/24 03:47
12/30/24 03:47
Labs
Hgb 9.4 g/dL (13.0-18.0) L 12/30/24 03:47
Hct 27.5 % (39.0-52.0) L 12/30/24 03:47
Plt Count 275 10^3/uL (130-400) D 12/30/24 03:47
PT 20.5 Sec (11.4-14.6) H 12/26/24 17:37
INR 1.74 12/26/24 17:37
APTT 39.2 Sec (23.4-35.0) H 12/26/24 17:37
Sodium 134 mmol/L (135-145) L 12/30/24 03:47
Potassium 4.7 mmol/L (3.5-5.1) 12/30/24 03:47
BUN 40 mg/dl (9-20) H 12/30/24 03:47
Creatinine 0.9 mg/dL (0.7-1.3) 12/30/24 03:47
Glucose 105 mg/dl (70-99) H 12/30/24 03:47
Vital Signs and I&O:
Vital Signs
Temp Pulse Resp BP Pulse Ox
98.7 F 78 18 106/61 97
12/30/24 03:44 12/30/24 06:45 12/30/24 03:44 12/30/24 06:25 12/30/24 03:44
Vital Signs
Temp Pulse Resp BP Pulse Ox
98.7 F 78 18 106/61 97
12/30/24 03:44 12/30/24 06:45 12/30/24 03:44 12/30/24 06:25 12/30/24 03:44
Intake & Output
12/28/24 12/29/24 12/30/24 12/31/24
06:59 06:59 06:59 06:59
Intake Total 1662.2 / 1716.7 1001.1 / 1015.9 662.0 / 662.0
Output Total 1455 / 1525 2075 / 2135 700 / 700
Balance 207.2 / 191.7 -1073.9 / -1119.1 -38.0 / -38.0
Physical Exam
Physical Exam
GEN: NAD. AAO x3
HEENT: EOMI
LUNGS: RA. No audible wheeze
CV: SR on tele.
NEURO: Gross non-focal
SKIN: No rash
[2024-12-30] MEDS: PACERONE 200 MG PO ×3 (07:53→21:32)
[2024-12-30] MEDS: LOW STRENGTH ASPIRIN 81 MG PO (07:53)
[2024-12-30] MEDS: NEURONTIN 100 MG PO ×3 (07:53→21:22)
[2024-12-30] MEDS: PLAVIX 75 MG PO (07:53)
[2024-12-30] MEDS: BACTROBAN 2% OINTMENT 1 APPLIC NASAL (07:53)
[2024-12-30] MEDS: PROTONIX 40 MG PO (07:53)
[2024-12-30] MEDS: SENOKOT-S 1 TABLET PO ×2 (07:53→19:48)
--- NOTE | 2024-12-30 07:59 | PTCARENOTE ---
assumed care of pt from previous shift RN, sinus rhythm on tele w HR 76, BP 91/58, + peripheral pulses, epicardial wire insulated, trace edema to bilateral lower extremities, pt denies CP. Lungs diminished, pox 99% on RA. +bs, tolerating PO intake,
voids spontaneously. Right IJ cordis w KVO infusing, PIV flushes easily. Surgical sites stable. Plan of care reviewed w the pt and questions encouraged.
[2024-12-30] MEDS: TOPROL XL 12.5 MG PO (09:28)
[2024-12-30] MEDS: FARXIGA 10 MG PO (11:09)
--- NOTE | 2024-12-30 11:16 | PTCARENOTE ---
cordis removed without incident.
--- NOTE | 2024-12-30 11:45 | CM ---
Pricing on Farxiga 10mg daily is $402.09 for the first month, patient has a $420 deductible and then he will pay $47 a month.
Jardiance 10mg is $402.09 for the first month, patient has a $420 deductible and then he will pay $47 a month.
Entresto is $402.09 for the first month, patient has a $420 deductible and then he will pay $47 a month.
Patient is agreeable to cost. I will place a free 30 day coupon in the red discharge folder.
--- NOTE | 2024-12-30 11:52 | CM ---
Chart reviewed. Patient is independent of ADLS, lives with his , daughter, and SANDRA in a 2 [address], 1st floor set up, 0 TRUDY, 0 DME. Plan is for the patient to return home with CT Transitional RN. CM to follow
--- NOTE | 2024-12-30 16:30 | PTCARENOTE ---
Pt with no changes in assessment. Remains SR with HR 70's. BP 97/61 MAP 73. Pulse oximetry 99% on room air. Ambulated in hallway with rolling walker and RN assistance, tolerated well. 2 view x-ray completed.
[2024-12-30] MEDS: LIPITOR 40 MG PO (17:00)
[2024-12-30] MEDS: NSS IV (17:01)
[2024-12-30] MEDS: TOPROL XL PO (19:47)
--- NOTE | 2024-12-30 20:05 | PTCARENOTE ---
Received pt at change of shift; AAOx3, able to make needs known, no c/o pain. NSR on the monitor, lungs clear, NAD. +bowel sounds, abd soft/round/nontender. Temporary epicardial v-wires insulated. Remainder of assessment as documented. BP soft,
96/56, PM dose of Metoprolol held per parameters, see MAR. INT flushed without issue. Surgical dressings C/D/I. PM hygiene performed, pt resting comfortably in bed at this time, call yo within reach.
--- NOTE | 2024-12-30 23:22 | PTCARENOTE ---
No change in pt assessment, denies pain. VSS, BP's soft 90's systolic, remains NSR on the monitor. Resting comfortably in bed at this time, call yo within reach.
[2024-12-31] VITALS (16 sets, daily range): BP systolic 83–104; BP diastolic 52–67; PULSE 75; O2SAT 95–100; BMI 29.6
--- NOTE | 2024-12-31 04:11 | PTCARENOTE ---
Assessment remains unchanged. VSS, Bp's soft systolic 90's, NSR on the monitor, HR 70's-80's. Pt continues to offer no complaints. Resting comfortably in bed, safe environment maintained.
[2024-12-31 05:03] LABS: Hematocrit 33.7 % (39.0-52.0); Hemoglobin 11.2 g/dL (13.0-18.0); Mean Corp Hgb Conc. 33.2 g/dL (33.0-37.0); Mean Corpuscular Hgb 29.8 pg (27.0-31.0); Mean Corpuscular Volume 89.6 fL (80.0-94.0); Mean Platelet Volume 9.3 fL (7.4-10.4); Platelet Count 318 10^3/uL (130-400); Red Blood Cell Count 3.76 10^6/uL (4.70-6.10); Red Cell Dist. Width 13.9 % (11.5-14.5); White Blood Cell Count 10.6 10^3/uL (4.8-10.8)
[2024-12-31 05:26] LABS: Blood Urea Nitrogen 37 mg/dl (9-20); Calcium 8.7 mg/dl (8.4-10.2); Carbon Dioxide 26 mmol/L (22-30); Chloride 104 mmol/L (98-107); Estimated Creatinine Clearance 49 ml/min; Glucose 105 mg/dl (70-99); Magnesium 2.4 mg/dl (1.6-2.3); Potassium 4.8 mmol/L (3.5-5.1); Sodium 136 mmol/L (135-145); eGFR > 60.00
[2024-12-31] MEDS: TYLENOL 1000 MG PO ×3 (06:12→21:34)
--- NOTE | 2024-12-31 07:50 | W.PN.CT ---
Today's Communication / Plan
-
-pod #5
-no issues overnight, feels better overall
-hypotensive postop. po Amio and Toprol 12.5 bid started 12/29. Held BB last night for BP 84/56
-all CTs dcd
-follow Cr- 1.1 today (peak Cr 1.5 on 12/28, baseline 1.0-1.3)
-current meds (ASA, Plavix, Lipitor, Toprol, Amio, Protonix)
-encourage IS, OOB, ambulate
Assessment / Plan
-
Assessment:
-S/P Emergent Median sternotomy/CABG x 4 (ALVARO to LAD, GSV to D1, GSV to OM, GSV to distal RCA)/Endoscopic harvest/prep of RLE GSV/[facility] MAZE procedure/ ELAA (50mm Atriclip)/ Drainage of B/L pleural effusions, by Dr. Baca, 12/26/24, pod#5
-Post-FREDRICK: LVEF 30-35%, slightly improved subjective contractility, moderate MR, moderate TR, [id number] AI, B/L pleural effusions no longer present, FAROOQ confirmed excluded, IABP properly positioned
-Attempted IABP placement via L CHIEF PORT DIRECTOR - unsuccessful - manual pressure held
-Successful placement of IABP via R CHIEF PORT DIRECTOR w/ institution of support w/ good augmentation
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
-Hx PCI S/P mid LAD and mid RCA stents, 2001 and 2002 in [facility]
-NSTEMI (peak trop 7.98)
-USA
-Preop USA and acute hypotension
-CAT
-ICM
-Acute on chronic systolic CHF
-LVEF 40-45% per TTE 12/23
-Mild MR/AI/TR, per TTE 12/23
-New/y diagnosed a-fib/flutter @ [facility] 12/21, Spontaneous conversion to NSR on 12/22
-Hx PAC's/PVC's
-HTN
-HLD
-Current tobacco use (cigars)
-Anemia
-Intraop ACLS - no CPR, synchronized cardioversion x 1 @ 200J for AF to monomorphic VT following induction
-Acute postop blood loss on Chronic Anemia (stable without blood transfusion)
-Acute postop atelectasis
-Acute postop hypovolemia with subsequent hypervolemia
-Acute postop hyponatremia likely from fluid overload
-Acute postop renal insufficiency/Azotemia
Discussed patient care with: Nursing and Care Team
Subjective
Procedure
S/P Emergent Median sternotomy/CABG x 4 (ALVARO to LAD, GSV to D1, GSV to OM, GSV to distal RCA)/Endoscopic harvest/prep of RLE GSV/[facility]compass MAZE procedure/ ELAA (50mm Atriclip)/ Drainage of B/L pleural effusions, by Dr. Baca, 12/26/24
-
Date of Service: December 31, 2024
Objective Data
-
Lab Results
12/31/24 04:50
12/31/24 04:50
PT 20.5 Sec (11.4-14.6) H 12/26/24 17:37
INR 1.74 12/26/24 17:37
APTT 39.2 Sec (23.4-35.0) H 12/26/24 17:37
Vital Signs
Vital Signs
Temp Pulse Resp BP Pulse Ox
98.7 F 73 18 98/55 99
12/31/24 03:16 12/31/24 06:00 12/30/24 15:30 12/31/24 06:00 12/31/24 03:16
CT Intake/Output/Weight
12/30/24 12/31/24 12/31/24
18:59 06:59 18:59
Intake Total 10 / 490 480 / 490
Output Total 400 / 1175 775 / 1175
Balance -390 / -685 -295 / -685
SaO2: 99
Physical Exam
-
General: Awake and AOx3
Cardiovascular: Regular rate & rhythm, No Murmurs and Rub
Respiratory: Decreased Breath Sounds
Sternum: Stable
Incision: Clean, Dry and Intact
Abdomen: soft, nontender, + bowel sounds
Extremities: Other (R leg with trace edema. L leg- no edema)
Data Reviewed
-
Lab Results: Results Reviewed
Medications: Active Meds Reviewed
Chest X-Ray: Report Reviewed and Image Reviewed
ECG: Report Reviewed and Image Reviewed
[2024-12-31] MEDS: LOW STRENGTH ASPIRIN 81 MG PO (08:11)
[2024-12-31] MEDS: TOPROL XL PO ×2 (08:11→19:04)
[2024-12-31] MEDS: PLAVIX 75 MG PO (08:11)
[2024-12-31] MEDS: SENOKOT-S 1 TABLET PO (08:12)
[2024-12-31] MEDS: PROTONIX 40 MG PO (08:12)
[2024-12-31] MEDS: NEURONTIN 100 MG PO ×3 (08:12→21:34)
[2024-12-31] MEDS: PACERONE 200 MG PO ×3 (08:12→21:35)
[2024-12-31] MEDS: FARXIGA 10 MG PO (08:12)
--- NOTE | 2024-12-31 08:48 | W.PN.CARDCBS ---
Addendum entered and electronically signed by Polo Perez MD 12/31/24 11:04:
I saw and examined the patient.
The RELATIONS MANAGER or PA's note was reviewed and I agree with the note.
Comment: General: Well developed, well nourished in NAD.
Neck: Supple, no JVD, HJR, carotids +2 B/L, no bruits bilaterally.
Heart: Non displaced PMI, RRR, no murmurs, No S3, S4, no rubs.
Lungs: Scattered rhonchi
Sternal dressings noted
Extremities: No clubbing, cyanosis or edema bilaterally.
Neuro: Grossly nonfocal, awake, alert and oriented x3.
Stable cardiology status status post CABG. Remains in sinus rhythm. Toprol on hold due to hypotension. Discussed with CT surgery.
Original Note:
Today's Communication / Plan
-
Continue post op care
Toprol on hold due to hypotension.
Remains in SR
Impression / Plan
-
Primary care physician: Dr. Rio Bridges
Primary corporate real estate specialist: Dr. Stas Coyne, previously followed with Dr. Carter
Impression:
Transferred from [facility] to [facility] with NSTEMI 12/22/24
NSTEMI, Troponin 576 at [facility] 12/21/24
CAD
PCI LAD, RCA in [facility] 2001
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
s/p [facility] with distal 80 to 90% stenosis LM, previously placed mid LAD stent widely patent without in-stent restenosis, yet distal LAD widely patent, 90% ostial circumflex stenosis, previously placed overlapping mid RCA stents with 90% stenosis in
the mid RCA at the proximal stent edge followed by severe in-stent restenosis in the midportion of the stent with a 70 to 80% stenosis, distal RCA widely patent 12/22/2024
s/p CABG x4 (GARCIA to LAD, vein graft to D1, vein graft to OM, vein graft to distal RCA) 12/26/24
Abnormal pericardial fluid 12/26/24
Brief VT with degeneration of Afib during induction with successful shock x1 12/26/24
Newly diagnosed typical atrial flutter
seen on initial ECG at [facility] 12/21/24 and then spontaneously converted to SR 12/22/24
Acute on chronic HFrEF
ICM EF 35-40% by echo 12/21/24
HTN
Prediabetes
PVC's, PAC's
Moderate-severe MR by echo 12/21/24
Mild to mod TR
Dyslipidemia
chewing tobacco dependence
Echo 05/2024: LVEF 50-55%, inferobasal AK, global HK, mild MAC, Trace MR, mild TR/AI, borderline dil AA 3.8cm
Echo 12/21/2024: EF 35 to 40%, basal and mid anterolateral wall, basal and mid inferior wall, and basal and mid inferolateral wall are abnormal, normal RV size and function, aortic sclerosis without stenosis, mild to moderate aortic regurgitation,
moderate to severe MR with eccentrically directed jet, mild to moderate TR, RVSP 48.1 mmHg, dilated ascending aorta 3.66 cm
Echo 12/23/2024: EF 40-45%, inferolateral, anterior, and anterolateral hypokinesis, stage I diastolic dysfunction, mild MR w/ moderate leaflet thickening and calcification, mild AI, mild TR, estimated PAP 33 mmHg
Plan:
-Initially admitted at [facility] w/ NSTEMI and transferred for cath 12/22/2024 w/ MV CAD. s/p urgent CABG x 4 (GARCIA to LAD, GSV to D1, GSV to OM, GSV to RCA) 12/26/2024 due to ongoing CP.
-POD #5. Doing well, but remains hypotensive w/ BP 97/54. Toprol on hold. Reports he is asymptomatic with this. No lightheadedness. Ambulating w/o SOB.
-Continue DAPT with aspirin, plavix.
-Noted to have afib w/ RVR that degenerated into VT during induction 12/26/2024 and was shocked x 1 with hindu of SR.
-Also w/ newly diagnosed typical atrial flutter on admission to [facility] 12/21/2024.
-Continue amiodarone 200 mg TID. Remains in SR on tele.
-s/p FAROOQ clip and FREDRICK performed intra-op, but not report available. Immediate post-op progress note from CTS team indicates that there was confirmed exclusion on FREDRICK
-LDL 62. Continue atorvastatin 40 mg daily
-EF 40-45% by echo 12/23/2024.
-Appears euvolemic, was diuresed pre-op.
HPI: 84 year old male with the PMH of HTN, HLD and CAD s/p [place] PCI to proximal LAD and mid RCA 2001 and RCA in stent restenosis dilated with cutting balloon and brachytherapy 2002 in [facility] who presented to the Emergency room for evaluation of
worsening SOB x2� weeks� with intermittent chest tightness. Upon arrival he was 98% on RA with BP 104/61. EKG showed AFlutter (new) with anterolateral STTW changes. CTA chest was negative for PE. BNP 3003 Trp 576, 745, 847, 1037, 1118 with CPK�s
275, 295, 417, 423, 429, MB peaked at 46.1. ASA 324mg was given in the ED and IV Heparin gtt was started. Repeat EKG showed NSR with lateral STTWA. Echo with EF 35-40%, anterolateral and mid inferolateral WMA, moderate-severe MR. He is being
transferred today for [facility].
Progress Note - Ocean Freight Agent
Subjective
Date of Service: December 31, 2024
No complaints. Feeling well.
Objective
Labs:
12/31/24 04:50
12/31/24 04:50
Labs
Hgb 11.2 g/dL (13.0-18.0) L 12/31/24 04:50
Hct 33.7 % (39.0-52.0) L 12/31/24 04:50
Plt Count 318 10^3/uL (130-400) 12/31/24 04:50
PT 20.5 Sec (11.4-14.6) H 12/26/24 17:37
INR 1.74 12/26/24 17:37
APTT 39.2 Sec (23.4-35.0) H 12/26/24 17:37
Sodium 136 mmol/L (135-145) 12/31/24 04:50
Potassium 4.8 mmol/L (3.5-5.1) 12/31/24 04:50
BUN 37 mg/dl (9-20) H 12/31/24 04:50
Creatinine 1.1 mg/dL (0.7-1.3) 12/31/24 04:50
Glucose 105 mg/dl (70-99) H 12/31/24 04:50
Vital Signs and I&O:
Vital Signs
Temp Pulse Resp BP Pulse Ox
97.6 F 72 18 97/54 99
12/31/24 08:00 12/31/24 08:00 12/30/24 15:30 12/31/24 08:11 12/31/24 07:54
Vital Signs
Temp Pulse Resp BP Pulse Ox
97.6 F 72 18 97/54 99
12/31/24 08:00 12/31/24 08:00 12/30/24 15:30 12/31/24 08:11 12/31/24 07:54
Intake & Output
12/29/24 12/30/24 12/31/24 01/01/25
06:59 06:59 06:59 06:59
Intake Total 1001.1 / 1015.9 662.0 / 662.0 490 / 490 240 / 240
Output Total 2075 / 2135 700 / 700 1175 / 1175
Balance -1073.9 / -1119.1 -38.0 / -38.0 -685 / -685 240 / 240
Physical Exam
Physical Exam
GEN: NAD. AAO x3
HEENT: EOMI
LUNGS: CTA b/l, no wheezes, rales
CV: Regular, S1/S2, no murmur
NEURO: Gross non-focal
SKIN: Warm, dry, no rash
[2024-12-31] MEDS: NSS IV (15:03)
--- NOTE | 2024-12-31 15:07 | PTCARENOTE ---
Pt having a good day, VSS, taking frequent walks today. Rehab recommends pt gets a rolling walker for home use. Script for a walker was provided to the patient's .
[2024-12-31] MEDS: LIPITOR 40 MG PO (17:52)
[2024-12-31] MEDS: SENOKOT-S PO (19:05)
--- NOTE | 2024-12-31 20:00 | PTCARENOTE ---
Received pt from [facility]. pt resting comfortably in bed. pt is AAox4, denies pain. NSR on monitor, SBPs trending in 80s-100s, pt is asymptomatic, CVPA aware. heart sounds audible, radial and DP pulses palpable, temp epicardial V wires insulated.
lungs clear, diminished at b/l bases, spo2 97% on RA. hypoactive BS x4 quadrants, abdomen soft non tender. pt voiding clear yellow urine. surgical sites maintained. PIV maintained. metoprolol held due to low BP. plan is for DC tomorrow, 01/01. call
yo within reach. will continue to monitor.
[2025-01-01] VITALS (10 sets, daily range): BP systolic 89–102; BP diastolic 51–63; PULSE 76; O2SAT 97–98; BMI 29.7
--- NOTE | 2025-01-01 | PTCARENOTE ---
pt assessment unchanged. NSR on monitor. resting comfortably in bed. will continue to monitor.
--- NOTE | 2025-01-01 03:29 | W.PN.CT ---
Today's Communication / Plan
-
-pod #6
-no issues overnight, feels better overall
-hypotensive postop. po Amio and Toprol 12.5 bid started 12/29.
-all CTs dcd
-follow Cr (peak Cr 1.5 on 12/28, baseline 1.0-1.3)
-current meds (ASA, Plavix, Lipitor, Toprol, Amio, Protonix)
-encourage IS, OOB, ambulate
-possible d/c soon
Assessment / Plan
-
Assessment:
-S/P Emergent Median sternotomy/CABG x 4 (ALVARO to LAD, GSV to D1, GSV to OM, GSV to distal RCA)/Endoscopic harvest/prep of RLE GSV/[facility] MAZE procedure/ ELAA (50mm Atriclip)/ Drainage of B/L pleural effusions, by Dr. Baca, 12/26/24, pod#6
-Post-FREDRICK: LVEF 30-35%, slightly improved subjective contractility, moderate MR, moderate TR, [id number] AI, B/L pleural effusions no longer present, FAROOQ confirmed excluded, IABP properly positioned
-Attempted IABP placement via L MGMT CONSULTANT - unsuccessful - manual pressure held
-Successful placement of IABP via R MGMT CONSULTANT w/ institution of support w/ good augmentation
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
-Hx PCI S/P mid LAD and mid RCA stents, 2001 and 2002 in [facility]
-NSTEMI (peak trop 7.98)
-USA
-Preop USA and acute hypotension
-CAT
-ICM
-Acute on chronic systolic CHF
-LVEF 40-45% per TTE 12/23
-Mild MR/AI/TR, per TTE 12/23
-New/y diagnosed a-fib/flutter @ [facility] 12/21, Spontaneous conversion to NSR on 12/22
-Hx PAC's/PVC's
-HTN
-HLD
-Current tobacco use (cigars)
-Anemia
-Intraop ACLS - no CPR, synchronized cardioversion x 1 @ 200J for AF to monomorphic VT following induction
-Acute postop blood loss on Chronic Anemia (stable without blood transfusion)
-Acute postop atelectasis
-Acute postop hypovolemia with subsequent hypervolemia
-Acute postop hyponatremia likely from fluid overload
-Acute postop renal insufficiency/Azotemia
Discussed patient care with: Nursing and Care Team
Subjective
Procedure
S/P Emergent Median sternotomy/CABG x 4 (ALVARO to LAD, GSV to D1, GSV to OM, GSV to distal RCA)/Endoscopic harvest/prep of RLE GSV/[facility]compass MAZE procedure/ ELAA (50mm Atriclip)/ Drainage of B/L pleural effusions, by Dr. Baca, 12/26/24
-
Date of Service: January 01, 2025
Objective Data
-
PT 20.5 Sec (11.4-14.6) H 12/26/24 17:37
INR 1.74 12/26/24 17:37
APTT 39.2 Sec (23.4-35.0) H 12/26/24 17:37
Vital Signs
Vital Signs
Temp Pulse Resp BP Pulse Ox
98.1 F 76 14 100/62 95
01/01/25 00:00 12/31/24 19:04 01/01/25 00:00 12/31/24 19:04 01/01/25 00:00
CT Intake/Output/Weight
12/31/24 12/31/24 01/01/25
06:59 18:59 06:59
Intake Total 480 / 490 590 / 590
Output Total 775 / 1175 200 / 200
Balance -295 / -685 590 / 390 -200 / 390
SaO2: 95
Physical Exam
-
General: Awake and AOx3
Cardiovascular: Regular rate & rhythm, No Murmurs and No Rub
Respiratory: Decreased Breath Sounds
Sternum: Stable
Incision: Clean, Dry and Intact
Extremities: Edema +1
Abdomen: soft, nontender, nondistended, + bowel sounds
Data Reviewed
-
Lab Results: Results Reviewed
Medications: Active Meds Reviewed
Chest X-Ray: Image Reviewed
ECG: Report Reviewed and Image Reviewed
--- NOTE | 2025-01-01 04:00 | PTCARENOTE ---
pt assessment unchanged. NSR on monitor. labs drawn and sent. will continue to monitor.
[2025-01-01 04:45] LABS: Blood Urea Nitrogen 36 mg/dl (9-20); Calcium 8.3 mg/dl (8.4-10.2); Carbon Dioxide 24 mmol/L (22-30); Chloride 106 mmol/L (98-107); Estimated Creatinine Clearance 49 ml/min; Glucose 111 mg/dl (70-99); Potassium 4.6 mmol/L (3.5-5.1); Sodium 135 mmol/L (135-145); eGFR > 60.00
[2025-01-01 04:47] LABS: Hemoglobin 9.3 g/dL (13.0-18.0); Mean Corp Hgb Conc. 34.4 g/dL (33.0-37.0); Mean Corpuscular Hgb 29.9 pg (27.0-31.0); Mean Corpuscular Volume 86.8 fL (80.0-94.0); Mean Platelet Volume 10.1 fL (7.4-10.4); Platelet Count 114 10^3/uL (130-400); Red Blood Cell Count 3.11 10^6/uL (4.70-6.10); Red Cell Dist. Width 13.8 % (11.5-14.5); White Blood Cell Count 9.1 10^3/uL (4.8-10.8)
[2025-01-01] MEDS: TYLENOL 1000 MG PO (05:57)
--- NOTE | 2025-01-01 07:54 | W.PN.CARDCBS ---
Addendum entered and electronically signed by Tony Waterman MD 01/01/25 09:59:
Discussed with CT surgical team after repeat draw of the platelets demonstrated stable and normal platelet range compared to yesterday. This is in contradistinction to the early a.m. labs demonstrating a drop in the platelets. As the patient's
platelets are stable and in the normal range I would like to addend my prior note and suggest that we continue dual antiplatelet therapy with aspirin and clopidogrel.
As stated before he appears to be nearing discharge defer to CT surgical team regarding timing of discharge.
Original Note:
Today's Communication / Plan
-
Platelets noted
Consider aspirin only as antiplatelet regimen
Consider novel oral anticoagulant
Appreciate excellent CT surgery care
Will follow with you
Overall appears to be nearing discharge despite a few medical issues to clarify
Impression / Plan
-
Primary care physician: Dr. Rio Bridges
Primary factory superintendent: Dr. Stas Coyne, previously followed with Dr. Carter
Impression:
Transferred from [facility] to [facility] with NSTEMI 12/22/24
NSTEMI, Troponin 576 at [facility] 12/21/24
CAD
PCI LAD, RCA in [facility] 2001
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
s/p [facility] with distal 80 to 90% stenosis LM, previously placed mid LAD stent widely patent without in-stent restenosis, yet distal LAD widely patent, 90% ostial circumflex stenosis, previously placed overlapping mid RCA stents with 90% stenosis in
the mid RCA at the proximal stent edge followed by severe in-stent restenosis in the midportion of the stent with a 70 to 80% stenosis, distal RCA widely patent 12/22/2024
s/p CABG x4 (GARCIA to LAD, vein graft to D1, vein graft to OM, vein graft to distal RCA) 12/26/24
Abnormal pericardial fluid 12/26/24
Brief VT with degeneration of Afib during induction with successful shock x1 12/26/24
Newly diagnosed typical atrial flutter
seen on initial ECG at [facility] 12/21/24 and then spontaneously converted to SR 12/22/24
Acute on chronic HFrEF
ICM EF 35-40% by echo 12/21/24
HTN
Prediabetes
PVC's, PAC's
Moderate-severe MR by echo 12/21/24
Mild to mod TR
Dyslipidemia
chewing tobacco dependence
Echo 05/2024: LVEF 50-55%, inferobasal AK, global HK, mild MAC, Trace MR, mild TR/AI, borderline dil AA 3.8cm
Echo 12/21/2024: EF 35 to 40%, basal and mid anterolateral wall, basal and mid inferior wall, and basal and mid inferolateral wall are abnormal, normal RV size and function, aortic sclerosis without stenosis, mild to moderate aortic regurgitation,
moderate to severe MR with eccentrically directed jet, mild to moderate TR, RVSP 48.1 mmHg, dilated ascending aorta 3.66 cm
Echo 12/23/2024: EF 40-45%, inferolateral, anterior, and anterolateral hypokinesis, stage I diastolic dysfunction, mild MR w/ moderate leaflet thickening and calcification, mild AI, mild TR, estimated PAP 33 mmHg
Plan:
-Initially admitted at [facility] w/ NSTEMI and transferred for cath 12/22/2024 w/ MV CAD. s/p urgent CABG x 4 (GARCIA to LAD, GSV to D1, GSV to OM, GSV to RCA) 12/26/2024 due to ongoing CP.
- Making good progress, the only issue noted this morning which is new was a drop in platelets
- Defer to CT surgery but could consider aspirin only given the drop in platelets I would be somewhat concerned this is related to the clopidogrel
-Noted to have afib w/ RVR that degenerated into VT during induction 12/26/2024 and was shocked x 1 with mu-ism of SR.
-Also w/ newly diagnosed typical atrial flutter on admission to [facility] 12/21/2024.
-Continue amiodarone 200 mg TID. Remains in SR on tele.
-s/p FAROOQ clip and FREDRICK performed intra-op, but not report available. Immediate post-op progress note from CTS team indicates that there was confirmed exclusion on FREDRICK. Can consider novel oral anticoagulant would defer to CT surgery regarding timing
-LDL 62. Continue atorvastatin 40 mg daily
-EF 40-45% by echo 12/23/2024.
-Appears euvolemic, was diuresed pre-op.
HPI: 84 year old male with the PMH of HTN, HLD and CAD s/p GA PCI to proximal LAD and mid RCA 2001 and RCA in stent restenosis dilated with cutting balloon and brachytherapy 2002 in [facility] who presented to the Emergency room for evaluation of
worsening SOB x2� weeks� with intermittent chest tightness. Upon arrival he was 98% on RA with BP 104/61. EKG showed AFlutter (new) with anterolateral STTW changes. CTA chest was negative for PE. BNP 3003 Trp 576, 745, 847, 1037, 1118 with CPK�s
275, 295, 417, 423, 429, MB peaked at 46.1. ASA 324mg was given in the ED and IV Heparin gtt was started. Repeat EKG showed NSR with lateral STTWA. Echo with EF 35-40%, anterolateral and mid inferolateral WMA, moderate-severe MR. He is being
transferred today for [facility].
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
Subjective
Date of Service: January 01, 2025
Overall feels well
Objective
Labs:
01/01/25 04:09
Labs
Hgb 9.3 g/dL (13.0-18.0) L 01/01/25 04:09
Hct 27.0 % (39.0-52.0) L 01/01/25 04:09
Plt Count 114 10^3/uL (130-400) L D 01/01/25 04:09
PT 20.5 Sec (11.4-14.6) H 12/26/24 17:37
INR 1.74 12/26/24 17:37
APTT 39.2 Sec (23.4-35.0) H 12/26/24 17:37
Sodium 135 mmol/L (135-145) 01/01/25 04:09
Potassium 4.6 mmol/L (3.5-5.1) 01/01/25 04:09
BUN 36 mg/dl (9-20) H 01/01/25 04:09
Creatinine 1.1 mg/dL (0.7-1.3) 01/01/25 04:09
Glucose 111 mg/dl (70-99) H 01/01/25 04:09
Vital Signs and I&O:
Vital Signs
Temp Pulse Resp BP Pulse Ox
97.8 F 71 18 95/60 98
01/01/25 07:46 01/01/25 06:00 01/01/25 07:46 01/01/25 06:00 01/01/25 07:46
Vital Signs
Temp Pulse Resp BP Pulse Ox
97.8 F 71 18 95/60 98
01/01/25 07:46 01/01/25 06:00 01/01/25 07:46 01/01/25 06:00 01/01/25 07:46
Intake & Output
12/30/24 12/31/24 01/01/25 01/02/25
06:59 06:59 06:59 06:59
Intake Total 662.0 / 662.0 490 / 490 590 / 590
Output Total 700 / 700 1175 / 1175 300 / 300
Balance -38.0 / -38.0 -685 / -685 290 / 290
Physical Exam
Physical Exam
����Physical Exam
���������������������General:��no apparent distress, not acutely ill
���������������������������Neck:��supple. no meningeal signs. normal psoterior pharynx
������������������������
���������������������������Heart:��s1/s2 regular rate and rhythm, no murmur. equal radial pulses.
Sternum clean dry and intact
��������������������������Lungs: ��no acute respiratory distress. clear bilaterally
����������������������Abdomen:�normal bowel sounds. not tender. no CVAT
��������������������������Neuro:��alert and oriented. no focal neurological deficits
������������������������������Skin: ��no rash
�����������������������Psychiatric:�well kept. interactive and cooperative
�����������������������Extremities:��no edema. no calf tenderness. negative homans. good distal pulses
��
�
--- NOTE | 2025-01-01 08:15 | PTCARENOTE ---
pt received from previous RN, oriented, OOB in chair. SR on the monitor, HR 70s. V wire insulated. SBP 90-100s. palpable pulses. pt on RA, 98% POX. IS encouraged. pt abdomen s/n, denies n/v. diet tolerated. +BM. voids. ambulates w/ RW. sternal
aquacel in place. chest tube dressing c/d/i. 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 PIV. lab work drawn. see worklist for VS, I&O, and assessment.
[2025-01-01 08:32] LABS: Hematocrit 30.7 % (39.0-52.0); Hemoglobin 10.1 g/dL (13.0-18.0); Mean Corp Hgb Conc. 32.9 g/dL (33.0-37.0); Mean Corpuscular Hgb 30.1 pg (27.0-31.0); Mean Corpuscular Volume 91.4 fL (80.0-94.0); Mean Platelet Volume 9.1 fL (7.4-10.4); Platelet Count 406 10^3/uL (130-400); Red Blood Cell Count 3.36 10^6/uL (4.70-6.10); Red Cell Dist. Width 13.9 % (11.5-14.5); White Blood Cell Count 10.7 10^3/uL (4.8-10.8)
[2025-01-01] MEDS: SENOKOT-S 1 TABLET PO (08:47)
[2025-01-01] MEDS: LOW STRENGTH ASPIRIN 81 MG PO (08:47)
[2025-01-01] MEDS: PLAVIX 75 MG PO (08:47)
[2025-01-01] MEDS: PACERONE 200 MG PO (08:47)
[2025-01-01] MEDS: NEURONTIN 100 MG PO (08:47)
[2025-01-01] MEDS: PROTONIX 40 MG PO (08:48)
[2025-01-01] MEDS: FARXIGA 10 MG PO (08:48)
--- NOTE | 2025-01-01 12:18 | W.DCSUMMARY ---
Discharge Summary
Discharge Data
Date of Admission: 12/22/24
Date of Discharge: 01/01/25
-
Pending Results: No
Hospital Course
Primary care physician: Dr Jone Lopez
Outpatient hearing screener: Don Carter
Inpatient consultants: [facility] cardiology, pulmonary footwear stitcher
Procedures:
1. CABG, left atrial appendage clip
Primary Diagnosis:
1. NSTEMI/Multivessel CAD including LM disease
Secondary Diagnoses:
1. VT arrest on induction/shock requiring mechanical cardiac support with IABP
2. History of PCI to LAD and RCA in 2001 and 2002
3. Acute on chronic HF R EF (30-35%)
4. Preop USA and acute hypotension
5. New/y diagnosed a-fib/flutter @ [facility] 12/21, Spontaneous conversion to NSR on 12/22
6. HTN
7. HLD
8. Current tobacco abuse (chewing tobacco)
9. Acute postop blood loss on Chronic Anemia s/p 1PRBC for Hb 7.9 12/28
10. Acute postop hyponatremia
12. Acute postop renal insufficiency/Azotemia
HPI: 84 y/o male initially presented to [facility] with progessive shortness of breath for 2 weeks and chest pressure that was initially with activity but since Friday it happened with rest. Upon arrival, he was saturating in the high 90s on room air. His
EKG at that time showed new onset atrial flutter w/ EKG changes. Patient was also found to have an elevated BNP and troponins. TTE showed an EF of 35-40% and mod TR and severe MR.
Hospital course: Transferred to 12/22/24 for a LHC which revealed MVD. Max Troponin I was 7.98. TTE reported moderate to severe MR which improved to mild MR after diuresis. Patient maintaining sinus rhythm on Coreg. On 12/25, patient complained
of chest tightness with deep breathing. Chest pressure progressed throughout the night with patient demonstrating hypotension. Troponin 2.9. Patient was taken emergently to OR on 12/26/24 for CABG and developed rapid AF that degraded into
monomorphic VT post induction of general anesthesia - successful cardioversion w/ 200J w/ congregational of sinus. IABP was placed and patient underwent CABG x 4 with GARCIA to LAD, SVG to diagonal 1, SVG to OM, SVG to RCA, [facility]compass maze, left atrial
appendage clip (350mm clip) by Dr. Zechariah Baca. Purulent pericardial fluid was sent to microbiology with final result of no growth of bacteria. Please refer to operative note for further details. Intraoperative FREDRICK reported an EF of 30-35%
with moderate MR/TR. Patient received no intraoperative blood products and returned to CVICU on dobutamine at 3, Levophed at 2, insulin and Precedex. Patient was extubated at 2230 on the evening of surgery. Postoperative day 1, the patient was
hemodynamically stable and femoral balloon pump was removed. Dobutamine was weaned off. Mixed venous oxygen saturation dropped to 45.3% and dobutamine was reinstituted at 2 mcg/kg/min. On postoperative day #2, Levophed was discontinued.
Amiodarone and beta-stephanie were held for mild hypotension. Bilateral pleural chest tubes were removed. Patient was diuresed with 40 mg of IV Lasix with 1175 cc of urine output return. Postoperative day #3, dobutamine was weaned off. Amiodarone
and beta-stephanie were resumed. 2 mediastinal chest drains were removed. Patient ambulated in halls with cardiac rehab without difficulty. Systolic blood pressure remained low normal range in the 80s to 90s systolic, therefore amiodarone and
beta-stephanie were held. Home lisinopril remained on hold and can be reestablished as outpatient when systolic blood pressure consistently remains greater than 100 mmHg. Farxiga 10 mg daily was initiated. A routine predischarge two-view chest
x-ray reported patchy airspace disease in the right lower lobe representing an improvement from the prior study. There are small bilateral pleural effusions. On postoperative day #4, morning platelet count reported as 114K. A repeat CBC reported
platelet count of 318K, consistent with prior results. Patient ambulated in halls with steady gait. He was evaluated by cardiology and CT surgery, and deemed stable for discharge to home. Systolic blood pressure remained 97-104 mmHg. Hemoglobin
was 10.1 and creatinine 1.1 on day of discharge. 1 epicardial bipolar ventricular lead was clipped at skin level. Patient instructed to have repeat BMP in 1 week. Patient will be followed by [facility] transitional care nurse team.
Home medication changes:
stop:
Amlodipine, Lisinopril due to mild hypotension
Discharge Plan
-
Patient Disposition: Home (Routine Discharge)
Discharge Diagnosis/Procedures: CABG/MAZE/left atrial appendage clip
Condition: Good
Diet: Low Cholesterol and 2 Gram Sodium
Activity: No strenuous activity
Driving Restrictions: Not until seen by your Dr
Bathing Restrictions: OK to Shower
Blood Work: BMP in 1 week
Other Services: Cardiac Rehab
Specialty Instructions: Weigh Daily- Call MD for wt gain/loss 3 lbs overnight/5 lbs in 1 week
Activity Restrictions/Additional Instructions:
ACTIVITY:
-No strenuous activity: no heavy lifting, pushing, pulling anything over 15 pounds for one month
-continue to use stairs as tolerated
DRIVING RESTRICTIONS:
-No driving for one month or until approved by your surgeon
WOUND CARE:
-Shower daily. Use soap & water.
-No lotions, creams or powders on incision area.
DIET:
-continue a low fat/low cholesterol diet.
-IF you are diabetic, continue carb controlled diet.
CARDIAC REHAB:
-Please make appointment to start in Cardiac Rehab in 5-6 weeks with [facility]'s program. ([phone]).
SPECIALTY INSTRUCTIONS:
-Weigh yourself daily. Call your physician for any weight gain/loss of 3 lbs overnight or 5 lbs in one week.
-REPORT any clicking noise or uneven appearance of your sternum to your surgeon immediately.
-If you smoke, you are instructed to quit. The [place] smoking hotline phone number is [phone]
Stand Alone Forms: DC Instructions- Cath/EP Lab
Referrals:
Jone Lopez DO [Non-Admitting Privileges] -
Don Carter MD [Non-Admitting Privileges] - 12/31/24 11:15 am
Zechariah Baca MD [Active] - (please call office for post-operative appointment on Friday)
Prescriptions:
New
acetaminophen 325 mg Tablet
650 mg PO Q4HPRN PRN (Reason: mild pain,headache,temp >101F ) Qty: 0 0RF
pantoprazole 40 mg Tablet,Delayed Release (Dr/Ec)
40 mg PO DAILY Qty: 30 2RF
oxycodone 5 mg Tablet
2.5 mg PO Q4HPRN PRN (Reason: mild pain) Qty: 10 0RF
clopidogrel 75 mg Tablet
75 mg PO DAILY Qty: 30 2RF
gabapentin 100 mg Capsule
100 mg PO TID Qty: 30 0RF
dapagliflozin propanediol 10 mg Tablet
10 mg PO DAILY Qty: 30 1RF
Continued
atorvastatin 40 mg Tablet
40 mg PO QPM
melatonin 10 mg Tablet
10 mg PO HS
aspirin 81 mg Capsule
81 mg PO DAILY
Discontinued
lisinopril 20 mg Tablet
20 mg PO DAILY
amlodipine 5 mg Tablet
5 mg PO DAILY
Discharge Orders:
Discharge Patient (As Directed); Ordered 01/01/25
Ordered By: Corazon Corey
Care Plan Goals
Care Plan Goals:
Problem: Readiness for enhanced knowledge related to diagnosis and treatment plan
Goal: Understand your diagnosis and treatment plan needs, including medications if applicable.
Instructions: Know your diagnosis, underlying causes and treatment plan options, including medications if applicable. Consult with your health care team to learn about your diagnosis and treatment plan, including medications if applicable.
Discharge Date and Time
Print Language: SINHALA
--- NOTE | 2025-01-01 12:30 | PTCARENOTE ---
pt VSS, no changes in assessment. pt ambulated in hallway. completed stairs w/ CR. pt placed back to bed, V wire cut by MAHAD Chandra.
--- NOTE | 2025-01-01 14:31 | PTCARENOTE ---
pt discharged home w/ , discharge instructions reviewed w/ patient and , BOLTER HELPER aware of updated staff radiation therapist appt on 01/07 per pt. home meds reviewed w/ patient, and son. questions answered. IV and tele dc'd. pt showered. dressed self. pt
left via wheelchair w/ all belongings.
== END 2025-01-01 14:00 | disposition home or self-care (01) | DRG 233 ==
LOC: CVICU 11:18
PROVIDERS: Anesthesiology; Clinical Nurse Specialist Acute Care; Internal Medicine Cardiovascular Disease; Internal Medicine Interventional Cardiology; Nurse Practitioner; Nurse Practitioner Adult Health; Physician Assistant Medical; ADMITTING PHYSICIAN Internal Medicine Interventional Cardiology; ATTENDING PHYSICIAN Thoracic Surgery (Cardiothoracic Vascular Surgery); CONSULT PHYSICIAN Thoracic Surgery (Cardiothoracic Vascular Surgery); OTHER PHYSICIAN Internal Medicine Critical Care Medicine
PROC: B2111ZZ Fluoroscopy of Multiple Coronary Arteries using Low Osmolar Contrast (ICD-10-PCS; 2024-12-22)
PROC: 4A023N8 Measurement of Cardiac Sampling and Pressure, Bilateral, Percutaneous Approach (ICD-10-PCS; 2024-12-22)
PROC: 5A2204Z Restoration of Cardiac Rhythm, Single (ICD-10-PCS; 2024-12-26)
PROC: 02100ZC Bypass Coronary Artery, One Artery from Thoracic Artery, Open Approach (ICD-10-PCS; 2024-12-26)
PROC: 0B9N0ZZ Drainage of Right Pleura, Open Approach (ICD-10-PCS; 2024-12-26)
PROC: 5A1221Z Performance of Cardiac Output, Continuous (ICD-10-PCS; 2024-12-26)
PROC: 0B9P0ZZ Drainage of Left Pleura, Open Approach (ICD-10-PCS; 2024-12-26)
PROC: 02L70CK Occlusion of Left Atrial Appendage with Extraluminal Device, Open Approach (ICD-10-PCS; 2024-12-26)
PROC: B24BZZ4 Ultrasonography of Heart with Aorta, Transesophageal (ICD-10-PCS; 2024-12-26)
PROC: 02580ZZ Destruction of Conduction Mechanism, Open Approach (ICD-10-PCS; 2024-12-26)
PROC: 06BP4ZZ Excision of Right Saphenous Vein, Percutaneous Endoscopic Approach (ICD-10-PCS; 2024-12-26)
PROC: 021209W Bypass Coronary Artery, Three Arteries from Aorta with Autologous Venous Tissue, Open Approach (ICD-10-PCS; 2024-12-26)
PROC: 5A02210 Assistance with Cardiac Output using Balloon Pump, Continuous (ICD-10-PCS; 2024-12-26)
PROC: 30233N1 Transfusion of Nonautologous Red Blood Cells into Peripheral Vein, Percutaneous Approach (ICD-10-PCS; 2024-12-28)
DX: I21.4 Non-ST elevation (NSTEMI) myocardial infarction (principal); I46.2 Cardiac arrest due to underlying cardiac condition; I50.23 Acute on chronic systolic (congestive) heart failure; T81.11XA Postprocedural cardiogenic shock, initial encounter; D62 Acute posthemorrhagic anemia; I48.92 Unspecified atrial flutter; I47.29 Other ventricular tachycardia; I97.710 Intraoperative cardiac arrest during cardiac surgery; E87.1 Hypo-osmolality and hyponatremia; T82.855A Stenosis of coronary artery stent, initial encounter; J98.11 Atelectasis; I25.10 Atherosclerotic heart disease of native coronary artery without angina pectoris; E78.5 Hyperlipidemia, unspecified; F17.220 Nicotine dependence, chewing tobacco, uncomplicated; R73.03 Prediabetes; I08.1 Rheumatic disorders of both mitral and tricuspid valves; I11.0 Hypertensive heart disease with heart failure; I25.5 Ischemic cardiomyopathy; Y83.2 Surgical operation with anastomosis, bypass or graft as the cause of abnormal reaction of the patient, or of later complication, without mention of misadventure at the time of the procedure; I48.91 Unspecified atrial fibrillation; N28.9 Disorder of kidney and ureter, unspecified; Y83.1 Surgical operation with implant of artificial internal device as the cause of abnormal reaction of the patient, or of later complication, without mention of misadventure at the time of the procedure; E86.1 Hypovolemia; Z79.82 Long term (current) use of aspirin; Z79.899 Other long term (current) drug therapy; Z82.49 Family history of ischemic heart disease and other diseases of the circulatory system; Z95.5 Presence of coronary angioplasty implant and graft
CPT/HCPCS: 33259; 70355; 71045; 71046; 71250; 80048; 80053; 80061; 81003; 81015; 82248; 82330; 82550; 82553; 82565; 82805; 82810; 82947; 82962; 83036; 83735; 84132; 84302; 84484; 84520; 85014; 85018; 85027; 85049; 85610; 85730; 86022; 86850; 86900; 86901; 86920; 87070; 87075; 87102; 87205; 93005; 93306; 93312; 93320; 93325; 93460; 93880; 94002; C1769; C1894; P9016; P9045; Q9967